=== PATIENT | male | born 1935 | race Caucasian/White ===

== ENCOUNTER 2019-10-02 11:17 | Emergency (ER) | payer MEDICARE ==
[2019-10-02 11:25] VITALS: RESP 18; TEMP 98
--- NOTE | 2019-10-02 12:38 | ED ---
Recheck HPI - General Chief Complaint: Recheck/Abnormal Lab/Rx Stated Complaint: High blood pressure Time Seen by Provider: 10/02/19 11:35 Source: patient, family Mode of arrival: wheelchair Limitations: physical limitation - History of Present Illness Initial Comments: Patient is an 84-year-old male, with history of hypertension, heart disease, hyperlipidemia, presenting to the emergency Department with complaints of elevated blood pressure readings this morning. Patient states that for the last 2 mornings when he sits up from bed he has some dizzy episodes. Patient states this feeling only lasts for a few minutes and then he can go along with his day. Patient states when it happened again this morning he took his blood pressure shortly after and it was 200/100. Patient states he then took it on his wrist and had approximately the same reading. Patient states with him feeling this way in the mornings and then the elevated blood pressure he decided to come in to the ER. He states he is feeling fine right now. He denies any lighthead edness, dizziness, headache, blurry vision, chest pain, shortness of breath. He denies any recent fever or chills. He denies any dysuria. Does been having regular bowel movements. He denies any other complaints at this time. Upon arrival to the ER, his vital signs are stable, including blood pressure 161/82. - Related Data Home Medications Medication Instructions Recorded Confirmed Aspirin [Adult Low Dose Aspirin EC] 81 mg PO HS 06/01/15 10/02/19 Diazepam [Valium] 5 mg PO BID PRN 06/01/15 10/02/19 Hydrochlorothiazide [Hydrodiuril] 25 mg PO DAILY 06/01/15 10/02/19 Metoprolol Tartrate [Lopressor] 50 mg PO BID 06/01/15 10/02/19 Allopurinol [Zyloprim] 100 mg PO DAILY 10/02/19 10/02/19 Aspirin EC [Ecotrin] 325 mg PO ONCE PRN 10/02/19 10/02/19 Pravastatin Sodium [Pravachol] 80 mg PO HS 10/02/19 10/02/19 Allergies Allergy/AdvReac Type Severity Reaction Status Date / Time Iodinated Contrast Media Allergy Anaphylaxis Verified 10/02/19 13:42 Review of Systems ROS Statement: Those systems with pertinent positive or pertinent negative responses have been documented in the HPI. ROS Other: All systems not noted in ROS Statement are negative. Past Medical History Past Medical History: Coronary Artery Disease (CAD), Hyperlipidemia, Hypertension History of Any Multi-Drug Resistant Organisms: None Reported Past Surgical History: Coronary Bypass/CABG Past Psychological History: Anxiety Smoking Status: Former smoker Past Alcohol Use History: Occasional Past Drug Use History: None Reported General Exam - General Exam Comments Initial Comments: GENERAL: Well-appearing, well-nourished and in no acute distress. HEAD: Atraumatic, normocephalic. EYES: Pupils equal round and reactive to light, extraocular movements intact, sclera anicteric, conjunctiva are normal. ENT: TMs normal, nares patent, oropharynx clear without exudates. Moist mucous membranes. NECK: Normal range of motion, supple without lymphadenopathy or JVD. LUNGS: Breath sounds clear to auscultation bilaterally and equal. No wheezes rales or rhonchi. HEART: Regular rate and rhythm without murmurs, rubs or gallops. ABDOMEN: Soft, nontender, normoactive bowel sounds. No guarding, no rebound. No masses appreciated. : Deferred EXTREMITIES: Normal range of motion, no pitting or edema. No clubbing or cyanosis. NEUROLOGICAL: Cranial nerves II through XII grossly intact. Normal speech, normal gait. PSYCH: Normal mood, normal affect. SKIN: Warm, Dry, normal turgor, no rashes or lesions noted. Limitations: physical limitation Course Vital Signs 10/02/19 10/02/19 10/02/19 11:21 11:25 12:25 Temperature 98 F Pulse Rate 63 59 L Respiratory 18 18 18 Rate Blood Pressure 161/82 154/75 O2 Sat by Pulse 99 99 Oximetry 10/02/19 10/02/19 10/02/19 13:00 14:00 14:19 Temperature Pulse Rate 60 61 61 Respiratory 18 18 18 Rate Blood Pressure 154/66 154/66 O2 Sat by Pulse 99 99 99 Oximetry Medical Decision Making - Medical Decision Making Patient is an 84-year-old male here for elevated blood pressure this morning as well as feeling lightheaded over the past 2 mornings. His vitals are stable upon arrival, blood pressure was 161/82. His exam is unremarkable. Lab work shows no acute findings, urine shows no evidence of infection. EKG shows first- degree block, no other abnormal findings. His blood pressure in the ER has been stable in the 150s/ 70s. I discussed with patient that his workup today was normal. Patient has remained asymptomatic in the ER. I recommended following up with his PCP. He is stable for discharge. Patient is agreeable with this plan of care. Return parameters were discussed with the patient he verbalizes understanding. Case discussed with Dr. Flores. - Lab Data Result diagrams: 10/02/19 12:26 10/02/19 12: Lab Results 10/02/19 10/02/19 10/02/19 Range/Units 12:26 12:26 12:26 WBC 7.2 (3.8-10.6) k/uL RBC 4.15 L (4.30-5.90) m/uL Hgb 13.7 (13.0-17.5) gm/dL Hct 41.3 (39.0-53.0) % MCV 99.7 (80.0-100.0) fL MCH 33.1 (25.0-35.0) pg MCHC 33.2 (31.0-37.0) g/dL RDW 13.1 (11.5-15.5) % Plt Count 119 L (150-450) k/uL Neutrophils % 71 % Lymphocytes % 13 % Monocytes % 9 % Eosinophils % 4 % Basophils % 0 % Neutrophils # 5.1 (1.3-7.7) k/uL Lymphocytes # 1.0 (1.0-4.8) k/uL Monocytes # 0.6 (0-1.0) k/uL Eosinophils # 0.3 (0-0.7) k/uL Basophils # 0.0 (0-0.2) k/uL Manual Slide Review Performed RBC Morphology Normal PT 9.9 (9.0-12.0) sec INR 0.9 (<1.2) APTT 34.9 H (22.0-30.0) sec Sodium 139 (137-145) mmol/L Potassium 4.5 (3.5-5.1) mmol/L Chloride 108 H (98-107) mmol/L Carbon Dioxide 23 (22-30) mmol/L Anion Gap 8 mmol/L BUN 23 H (9-20) mg/dL Creatinine 1.15 (0.66-1.25) mg/dL Est GFR (CKD-EPI)AfAm 67 (>60 ml/min/1.73 sqM) Est GFR (CKD-EPI)NonAf 58 (>60 ml/min/1.73 sqM) Glucose 105 H (74-99) mg/dL Calcium 9.9 (8.4-10.2) mg/dL Magnesium 1.6 (1.6-2.3) mg/dL Total Bilirubin 0.9 (0.2-1.3) mg/dL AST 30 (17-59) U/L ALT 21 (4-49) U/L Alkaline Phosphatase 74 (38-126) U/L Total Protein 6.7 (6.3-8.2) g/dL Albumin 4.2 (3.5-5.0) g/dL TSH 3.290 (0.465-4.680) mIU/L Urine Color Urine Appearance (Clear) Urine pH (5.0-8.0) Ur Specific [place] (1.001-1.035) Urine Protein (Negative) Urine Glucose (UA) (Negative) Urine Ketones (Negative) Urine Blood (Negative) Urine Nitrite (Negative) Urine Bilirubin (Negative) Urine Urobilinogen (<2.0) mg/dL Ur Leukocyte Esterase (Negative) Urine RBC (0-5) /hpf Urine WBC (0-5) /hpf Urine Mucus (None) /hpf 10/02/19 Range/Units 12:39 WBC (3.8-10.6) k/uL RBC (4.30-5.90) m/uL Hgb (13.0-17.5) gm/dL Hct (39.0-53.0) % MCV (80.0-100.0) fL MCH (25.0-35.0) pg MCHC (31.0-37.0) g/dL RDW (11.5-15.5) % Plt Count (150-450) k/uL Neutrophils % % Lymphocytes % % Monocytes % % Eosinophils % % Basophils % % Neutrophils # (1.3-7.7) k/uL Lymphocytes # (1.0-4.8) k/uL Monocytes # (0-1.0) k/uL Eosinophils # (0-0.7) k/uL Basophils # (0-0.2) k/uL Manual Slide Review RBC Morphology PT (9.0-12.0) sec INR (<1.2) APTT (22.0-30.0) sec Sodium (137-145) mmol/L Potassium (3.5-5.1) mmol/L Chloride (98-107) mmol/L Carbon Dioxide (22-30) mmol/L Anion Gap mmol/L BUN (9-20) mg/dL Creatinine (0.66-1.25) mg/dL Est GFR (CKD-EPI)AfAm (>60 ml/min/1.73 sqM) Est GFR (CKD-EPI)NonAf (>60 ml/min/1.73 sqM) Glucose (74-99) mg/dL Calcium (8.4-10.2) mg/dL Magnesium (1.6-2.3) mg/dL Total Bilirubin (0.2-1.3) mg/dL AST (17-59) U/L ALT (4-49) U/L Alkaline Phosphatase (38-126) U/L Total Protein (6.3-8.2) g/dL Albumin (3.5-5.0) g/dL TSH (0.465-4.680) mIU/L Urine Color Light Yellow Urine Appearance Clear (Clear) Urine pH 5.5 (5.0-8.0) Ur Specific [place] 1.013 (1.001-1.035) Urine Protein 1+ H (Negative) Urine Glucose (UA) Negative (Negative) Urine Ketones Negative (Negative) Urine Blood Negative (Negative) Urine Nitrite Negative (Negative) Urine Bilirubin Negative (Negative) Urine Urobilinogen <2.0 (<2.0) mg/dL Ur Leukocyte Esterase Negative (Negative) Urine RBC 1 (0-5) /hpf Urine WBC 1 (0-5) /hpf Urine Mucus Rare H (None) /hpf - EKG Data EKG Comments: Sinus bradycardia with first-degree AV block, R DVT, no signs of acute ischemia. Ventricular rate 59, LA interval 260, QTC 452. No previous EKGs to compare. Disposition Clinical Impression: Elevated blood pressure reading, Light-headed feeling Disposition: HOME SELF-CARE Condition: Stable Instructions (If sedation given, give patient instructions): Normal Exam (ED) Additional Instructions: Please return to the Emergency Department if symptoms worsen or any other concerns. Follow-up with PCP. Is patient prescribed a controlled substance at d/c from ED?: No Referrals: Adam Chirinos MD [STAFF PHYSICIAN] - 1-2 days
[2019-10-02 12:41] LABS: Basophils % (A) 0 %; Eosinophils # (A) 0.3 k/uL (0-0.7); Eosinophils % (A) 4 %; HCT 41.3 % (39.0-53.0); HGB 13.7 gm/dL (13.0-17.5); Lymphocytes % (A) 13 %; MCH 33.1 pg (25.0-35.0); MCHC 33.2 g/dL (31.0-37.0); MCV 99.7 fL (80.0-100.0); Mean Platelet Volume 9.3; Monocytes # (A) 0.6 k/uL (0-1.0); Monocytes % (A) 9 %; Neutrophils # (A) 5.1 k/uL (1.3-7.7); Neutrophils % (A) 71 %; Platelet Count 119 k/uL (150-450); RBC 4.15 m/uL (4.30-5.90); RDW 13.1 % (11.5-15.5); WBC 7.2 k/uL (3.8-10.6)
[2019-10-02 12:49] LABS: Albumin 4.2 g/dL (3.5-5.0); Calcium 9.9 mg/dL (8.4-10.2); Magnesium 1.6 mg/dL (1.6-2.3); Potassium 4.5 mmol/L (3.5-5.1); Total Bilirubin 0.9 mg/dL (0.2-1.3); Total Protein 6.7 g/dL (6.3-8.2)
[2019-10-02 12:53] LABS: Appearance,Urine Clear (Clear); Bilirubin,Urine Negative (Negative); Blood,Urine Negative (Negative); Color,Urine Light Yellow; Glucose,Urine (UA) Negative (Negative); Ketones,Urine Negative (Negative); Leukocyte Esterase,Urine Negative (Negative); Mucus,Urine Rare /hpf; Nitrite,Urine Negative (Negative); PH, Urine 5.5 (5.0-8.0); Protein,Urine 1+ (Negative); RBC,Urine 1 /hpf (0-5); Specific Gravity,Urine 1.013 (1.001-1.035); Urobilinogen,Urine <2.0 mg/dL (<2.0); WBC,Urine 1 /hpf (0-5)
[2019-10-02 12:55] LABS: INR 0.9 (<1.2); Partial Thromboplastin Time 34.9 sec (22.0-30.0); Prothrombin Time 9.9 sec (9.0-12.0)
[2019-10-02 14:19] VITALS: BP 154/66; PULSE 61
== END 2019-10-02 14:22 | disposition home or self-care (01) ==
LOC: EC 11:17
DX: I10 Essential (primary) hypertension (principal); R42 Dizziness and giddiness; I25.10 Atherosclerotic heart disease of native coronary artery without angina pectoris; E78.5 Hyperlipidemia, unspecified; Z95.1 Presence of aortocoronary bypass graft; Z87.891 Personal history of nicotine dependence; Z79.82 Long term (current) use of aspirin; Z79.899 Other long term (current) drug therapy; Z91.041 Radiographic dye allergy status
CPT/HCPCS: 36415; 80053; 81001; 83735; 84443; 85025; 85610; 85730; 93005; 99283

== ENCOUNTER 2022-07-18 11:50 | Inpatient (IN) | payer OTHER, MEDICARE ==
--- NOTE | 2022-07-18 12:35 | ED ---
General Adult HPI - General Chief complaint: Weakness Stated complaint: weak Time Seen by Provider: 07/18/22 12:16 Source: patient, RN notes reviewed Mode of arrival: ambulatory Limitations: no limitations - History of Present Illness Initial comments: Patient is a pleasant 87-year-old male presenting to the emergency department with concerns with general weakness. Patient states symptoms have been present for the past one week. Patient feels weak all over. Patient has difficulty getting up getting out of bed. Patient is able to make it to the restroom using a walker however that is about his limitations. No confusion. No isolated area of weakness. No fever. Patient was given a pill that he took several times from a nurse friend however is unclear what it was. Patient does question if this could be related to his symptoms. Patient did have a fall several days ago and had x-rays done of his ankles that were reported as normal - Related Data Home Medications Medication Instructions Recorded Confirmed Aspirin [Adult Low Dose Aspirin EC] 81 mg PO HS 06/01/15 10/02/19 Metoprolol Tartrate [Lopressor] 50 mg PO BID 06/01/15 10/02/19 diazePAM [Valium] 5 mg PO BID PRN 06/01/15 10/02/19 hydroCHLOROthiazide [Hydrodiuril] 25 mg PO DAILY 06/01/15 10/02/19 Aspirin EC [Ecotrin] 325 mg PO ONCE PRN 10/02/19 10/02/19 Pravastatin Sodium [Pravachol] 80 mg PO HS 10/02/19 10/02/19 allopurinoL [Zyloprim] 100 mg PO DAILY 10/02/19 10/02/19 Allergies Allergy/AdvReac Type Severity Reaction Status Date / Time Iodinated Contrast Media Allergy Anaphylaxis Verified 07/18/22 12:02 Review of Systems ROS Statement: Those systems with pertinent positive or pertinent negative responses have been documented in the HPI. ROS Other: All systems not noted in ROS Statement are negative. Constitutional: Denies: fever Eyes: Denies: eye pain ENT: Denies: ear pain Respiratory: Denies: cough Cardiovascular: Denies: chest pain Endocrine: Denies: fatigue Gastrointestinal: Denies: abdominal pain Genitourinary: Denies: dysuria Musculoskeletal: Denies: arthralgia Skin: Denies: lesions Neurological: Reports: as per HPI, weakness. Denies: headache, confusion Past Medical History Past Medical History: Coronary Artery Disease (CAD), Hyperlipidemia, Hypertension History of Any Multi-Drug Resistant Organisms: None Reported Past Surgical History: Coronary Bypass/CABG Past Psychological History: Anxiety Smoking Status: Never smoker Past Alcohol Use History: Occasional Past Drug Use History: None Reported General Exam Limitations: no limitations General appearance: alert, in no apparent distress Head exam: Present: normocephalic Eye exam: Present: normal appearance, PERRL, EOMI ENT exam: Present: normal oropharynx Neck exam: Present: normal inspection. Absent: tenderness Respiratory exam: Present: normal lung sounds bilaterally Cardiovascular Exam: Present: regular rate, normal rhythm GI/Abdominal exam: Present: soft. Absent: tenderness Extremities exam: Present: normal inspection, full ROM. Absent: tenderness Neurological exam: Present: alert, oriented X3, CN II-XII intact. Absent: motor sensory deficit Expanded Speech: Present: fluid speech Motor strength exam: RUE: 5, LUE: 5, RLE: 5, LLE: 5 Eye Response: (4) open spontaneously Motor Response: (6) obeys commands Verbal Response: (5) oriented Psychiatric exam: Present: normal affect, normal mood Skin exam: Present: normal color Course Vital Signs 07/18/22 07/18/22 12:00 13:01 Temperature 97.4 F L Pulse Rate 107 H 79 Respiratory 20 18 Rate Blood Pressure 129/78 118/81 O2 Sat by Pulse 100 98 Oximetry EKG Findings - EKG Results: EKG: interpreted by ERMD (Right bundle-branch block. inferior Q waves. Nonspecific ST-T. [place] indeterminate. Probable underlying A. fib) Medical Decision Making - Medical Decision Making Was pt. sent in by a medical professional or institution (, PA, RESOURCE SPECIALIST, urgent care, hospital, or fdc...) When possible be specific @ -No Did you speak to anyone other than the patient for history (EMS, parent, family, police, friend...)? What history was obtained from this source @ -No Did you review nursing and triage notes (agree or disagree)? Why? @ -I reviewed and agree with nursing and triage notes Were old charts reviewed (outside hosp., previous admission, EMS record, old EKG, old radiological studies, urgent care reports/EKG's, fdc records)? Report findings @ -No old charts were reviewed Differential Diagnosis (chest pain, altered mental status, abdominal pain women, abdominal pain men, vaginal bleeding, weakness, fever, dyspnea, syncope, headache, dizziness, GI bleed, back pain, seizure, CVA, palpatations, mental health)? @ -Differential Weakness: Hypoglycemia, shock, sepsis, hyponatremia, anemia, infection, CA, ETOH, adverse medicine reaction, overdose, stroke, this is not meant to be an all-inclusive list. EKG interpreted by me (3pts min.). @ -As above X-rays interpreted by me (1pt min.). @ -Chest x-ray shows no acute process CT interpreted by me (1pt min.). @ -Report reviewed U/S interpreted by me (1pt. min.). @ -None done What testing was considered but not performed or refused? (CT, X-rays, U/S, labs)? Why? @ -None What meds were considered but not given or refused? Why? @ -None Did you discuss the management of the patient with other professionals (professionals i.e. , PA, RESOURCE SPECIALIST, lab, RT, psych nurse, social work case manager, relay associate, teacher, chief digital officer, pillowcase maker)? Give summary @ -Case was discussed with Dr. Tovar, who will admit this. Patient va Was smoking cessation discussed for >3mins.? @ -No Was critical care preformed (if so, how long)? @ -No Were there social determinants of health that impacted care today? How? (Homelessness, low income, unemployed, alcoholism, drug addiction, transportation, low edu. Level, literacy, decrease access to med. care, custodial, rehab)? @ -No Was there de-escalation of care discussed even if they declined (Discuss DNR or withdrawal of care, Hospice)? DNR status @ -No What co-morbidities impacted this encounter? (DM, HTN, Smoking, COPD, CAD, Cancer, CVA, ARF, Chemo, Hep., AIDS, mental health diagnosis, sleep apnea, morbid obesity)? @ -None Was patient admitted / discharged? Hospital course, mention meds given and r oute, prescriptions, significant lab abnormalities, going to OR and other pertinent info. @ -Patient reevaluated. Patient updated on results and plan. Patient will be admitted for hydration. Patient will be reevaluated and may need placement Undiagnosed new problem with uncertain prognosis? @ -No Drug Therapy requiring intensive monitoring for toxicity (Heparin, Nitro, Insulin, Cardizem)? @ -No Were any procedures done? @ -No Diagnosis/symptom? @ -Dehydration with fall Acute, or Chronic, or Acute on Chronic? @ -Acute Uncomplicated (without systemic symptoms) or Complicated (systemic symptoms)? @ -default Side effects of treatment? @ -No Exacerbation, Progression, or Severe Exacerbation? @ -No Poses a threat to life or bodily function? How? (Chest pain, [place], CA, pneumonia, PE, COPD, DKA, ARF, appy, cholecystitis, CVA, Diverticulitis, Homicidal, Suicidal, threat to staff... and all critical care pts) @ -No - Lab Data Result diagrams: 07/18/22 13:02 07/18/22 13:02 Lab Results 07/18/22 07/18/22 07/18/22 Range/Units 13:02 13:02 13:02 WBC 16.7 H (3.8-10.6) k/uL RBC 3.74 L (4.30-5.90) m/uL Hgb 11.2 L (13.0-17.5) gm/dL Hct 36.4 L (39.0-53.0) % MCV 97.4 (80.0-100.0) fL MCH 30.0 (25.0-35.0) pg MCHC 30.8 L (31.0-37.0) g/dL RDW 13.6 (11.5-15.5) % Plt Count 625 H (150-450) k/uL MPV 7.5 Neutrophils % 87 % Lymphocytes % 4 % Monocytes % 5 % Eosinophils % 3 % Basophils % 0 % Neutrophils # 14.6 H (1.3-7.7) k/uL Lymphocytes # 0.7 L (1.0-4.8) k/uL Monocytes # 0.8 (0-1.0) k/uL Eosinophils # 0.4 (0-0.7) k/uL Basophils # 0.0 (0-0.2) k/uL PT 12.1 H (9.0-12.0) sec INR 1.2 H (<1.2) APTT 44.8 H (22.0-30.0) sec Sodium 137 (137-145) mmol/L Potassium 3.9 (3.5-5.1) mmol/L Chloride 100 (98-107) mmol/L Carbon Dioxide 20 L (22-30) mmol/L Anion Gap 17 mmol/L BUN 41 H (9-20) mg/dL Creatinine 1.56 H (0.66-1.25) mg/dL Est GFR (CKD-EPI)AfAm 45 (>60 ml/min/1.73 sqM) Est GFR (CKD-EPI)NonAf 39 (>60 ml/min/1.73 sqM) Glucose 107 H (74-99) mg/dL Plasma Lactic Acid Mikel (0.7-2.0) mmol/L Calcium 8.7 (8.4-10.2) mg/dL Phosphorus 4.3 (2.5-4.5) mg/dL Magnesium 1.8 (1.6-2.3) mg/dL Total Bilirubin 0.8 (0.2-1.3) mg/dL AST 30 (17-59) U/L ALT 28 (4-49) U/L Alkaline Phosphatase 168 H (38-126) U/L Creatine Kinase <20 L (55-170) U/L Troponin I (0.000-0.034) ng/mL Total Protein 5.8 L (6.3-8.2) g/dL Albumin 2.8 L (3.5-5.0) g/dL TSH 2.090 (0.465-4.680) mIU/L Free T4 1.97 (0.78-2.19) ng/dL Free T3 pg/mL 2.8 (2.8-5.3) pg/ml Urine Color Urine Appearance (Clear) Urine pH (5.0-8.0) Ur Specific [place] (1.001-1.035) Urine Protein (Negative) Urine Glucose (UA) (Negative) Urine Ketones (Negative) Urine Blood (Negative) Urine Nitrite (Negative) Urine Bilirubin (Negative) Urine Urobilinogen (<2.0) mg/dL Ur Leukocyte Esterase (Negative) Urine RBC (0-5) /hpf Urine WBC (0-5) /hpf Hyaline Casts (0-2) /lpf Granular Casts (0) /lpf Urine Mucus (None) /hpf 07/18/22 07/18/22 07/18/22 Range/Units 13:02 13:02 13:05 WBC (3.8-10.6) k/uL RBC (4.30-5.90) m/uL Hgb (13.0-17.5) gm/dL Hct (39.0-53.0) % MCV (80.0-100.0) fL MCH (25.0-35.0) pg MCHC (31.0-37.0) g/dL RDW (11.5-15.5) % Plt Count (150-450) k/uL MPV Neutrophils % % Lymphocytes % % Monocytes % % Eosinophils % % Basophils % % Neutrophils # (1.3-7.7) k/uL Lymphocytes # (1.0-4.8) k/uL Monocytes # (0-1.0) k/uL Eosinophils # (0-0.7) k/uL Basophils # (0-0.2) k/uL PT (9.0-12.0) sec INR (<1.2) APTT (22.0-30.0) sec Sodium (137-145) mmol/L Potassium (3.5-5.1) mmol/L Chloride (98-107) mmol/L Carbon Dioxide (22-30) mmol/L Anion Gap mmol/L BUN (9-20) mg/dL Creatinine (0.66-1.25) mg/dL Est GFR (CKD-EPI)AfAm (>60 ml/min/1.73 sqM) Est GFR (CKD-EPI)NonAf (>60 ml/min/1.73 sqM) Glucose (74-99) mg/dL Plasma Lactic Acid [place] 1.7 (0.7-2.0) mmol/L Calcium (8.4-10.2) mg/dL Phosphorus (2.5-4.5) mg/dL Magnesium (1.6-2.3) mg/dL Total Bilirubin (0.2-1.3) mg/dL AST (17-59) U/L ALT (4-49) U/L Alkaline Phosphatase (38-126) U/L Creatine Kinase (55-170) U/L Troponin I 0.035 H* (0.000-0.034) ng/mL Total Protein (6.3-8.2) g/dL Albumin (3.5-5.0) g/dL TSH (0.465-4.680) mIU/L Free T4 (0.78-2.19) ng/dL Free T3 pg/mL (2.8-5.3) pg/ml Urine Color Yellow Urine Appearance Cloudy (Clear) Urine pH 5.0 (5.0-8.0) Ur Specific [place] 1.022 (1.001-1.035) Urine Protein 1+ H (Negative) Urine Glucose (UA) Negative (Negative) Urine Ketones Trace H (Negative) Urine Blood Negative (Negative) Urine Nitrite Negative (Negative) Urine Bilirubin 1+ H (Negative) Urine Urobilinogen 2.0 (<2.0) mg/dL Ur Leukocyte Esterase Negative (Negative) Urine RBC 1 (0-5) /hpf Urine WBC 5 (0-5) /hpf Hyaline Casts 27 H (0-2) /lpf Granular Casts 5 (0) /lpf Urine Mucus Rare H (None) /hpf Disposition Clinical Impression: Dehydration, Fall Disposition: ADMITTED IP TO THIS HOSP Is patient prescribed a controlled substance at d/c from ED?: No Referrals: [facility],Clinic [Primary Care Provider] - 1-2 days Time of Disposition: 14:12
[2022-07-18 13:25] LABS: Basophils % (A) 0 %; Eosinophils # (A) 0.4 k/uL (0-0.7); Eosinophils % (A) 3 %; HCT 36.4 % (39.0-53.0); HGB 11.2 gm/dL (13.0-17.5); Lymphocytes # (A) 0.7 k/uL (1.0-4.8); Lymphocytes % (A) 4 %; MCHC 30.8 g/dL (31.0-37.0); MCV 97.4 fL (80.0-100.0); Mean Platelet Volume 7.5; Monocytes # (A) 0.8 k/uL (0-1.0); Monocytes % (A) 5 %; Neutrophils # (A) 14.6 k/uL (1.3-7.7); Neutrophils % (A) 87 %; Platelet Count 625 k/uL (150-450); RBC 3.74 m/uL (4.30-5.90); RDW 13.6 % (11.5-15.5); WBC 16.7 k/uL (3.8-10.6)
[2022-07-18 13:30] LABS: INR 1.2 (<1.2); Partial Thromboplastin Time 44.8 sec (22.0-30.0); Prothrombin Time 12.1 sec (9.0-12.0)
[2022-07-18 13:35] LABS: ALT 28 U/L (4-49); AST 30 U/L (17-59); African American GFR (CKD) 45 (>60 ml/min/1.73 sqM); Albumin 2.8 g/dL (3.5-5.0); Alkaline Phosphatase 168 U/L (38-126); Anion Gap 17 mmol/L; Blood Urea Nitrogen 41 mg/dL (9-20); Calcium 8.7 mg/dL (8.4-10.2); Carbon Dioxide 20 mmol/L (22-30); Chloride 100 mmol/L (98-107); Creatine Kinase <20 U/L (55-170); Glucose 107 mg/dL (74-99); Magnesium 1.8 mg/dL (1.6-2.3); Non-African American GFR(CKD) 39 (>60 ml/min/1.73 sqM); Phosphorus 4.3 mg/dL (2.5-4.5); Potassium 3.9 mmol/L (3.5-5.1); Sodium 137 mmol/L (137-145); Total Bilirubin 0.8 mg/dL (0.2-1.3); Total Protein 5.8 g/dL (6.3-8.2)
--- NOTE | 2022-07-18 13:40 | CT ---
EXAMINATION TYPE: CT brain wo con CT DLP: 1188.4 mGycm, Automated exposure control for dose reduction was used. DATE OF EXAM: 07/18/2022 1:20 PM COMPARISON: None. CLINICAL INDICATION:Male, 87 years old with history of weakness, Weakness. TECHNIQUE: Brain: Axial CT images of the brain were obtained with coronal and sagittal reformats created and rev iewed. Contrast used: None. Oral contrast used: None. FINDINGS: Brain: Extra-axial spaces: No abnormal extra-axial fluid collections. Ventricular system: Dilatation in proportion to cerebral atrophy. Cerebral parenchyma: Cerebral atrophy. No acute intraparenchymal hemorrhage or mass effect. The mccray -white junction is well differentiated. Scattered hypoattenuating areas are seen within the white mat ter. Cerebellum: Unremarkable. Mass effect: No evidence of midline shift. Intracranial vasculature: Atherosclerotic calcifications of the intracranial vessels. Soft tissues: Normal. Calvarium/osseous structures: No depressed skull fracture. Remote appearing left nasal bone fracture suggested. Paranasal sinuses and mastoid air cells: Mild scattered paranasal sinus disease. Visualized orbits: Orbital contents are intact. IMPRESSION: No acute intracranial process.
--- NOTE | 2022-07-18 13:41 | XR ---
EXAMINATION TYPE: XR chest 2V DATE OF EXAM: 07/18/2022 1:22 PM COMPARISON: None TECHNIQUE: XR chest 2V Frontal and lateral views of the chest. CLINICAL INDICATION:Male, 87 years old with history of Weakness; FINDINGS: Lungs/Pleura: There is flattening of the diaphragm with increased lucency of the lungs. No evidence o f pneumothorax, pleural effusion or focal consolidation. Pulmonary vascularity: Unremarkable. Heart/mediastinum: Cardiomediastinal silhouette is unremarkable. Musculoskeletal: No acute osseous pathology. Midline sternotomy wires and surgical clips project over the mediastinum. IMPRESSION: 1. No acute cardiopulmonary disease process. 2. COPD changes.
[2022-07-18 13:51] LABS: Appearance,Urine Cloudy (Clear); Bilirubin,Urine 1+ (Negative); Blood,Urine Negative (Negative); Color,Urine Yellow; Glucose,Urine (UA) Negative (Negative); Granular Casts,Urine 5 /lpf (0); Hyaline Casts,Urine 27 /lpf (0-2); Ketones,Urine Trace (Negative); Leukocyte Esterase,Urine Negative (Negative); Mucus,Urine Rare /hpf; Nitrite,Urine Negative (Negative); Protein,Urine 1+ (Negative); RBC,Urine 1 /hpf (0-5); Specific Gravity,Urine 1.022 (1.001-1.035); WBC,Urine 5 /hpf (0-5)
[2022-07-18 13:52] LABS: T4, Free (Free Thyroxine) 1.97 ng/dL (0.78-2.19)
[2022-07-18] MEDS ORDERED: NALOXONE 0.4 MG/ML 1 ML VIAL IV PRN (14:12)
[2022-07-18] MEDS: SODIUM CHLORIDE 0.9% 1,000 ML IV SCH (14:27)
[2022-07-18] MEDS: ASPIRIN 325 MG TAB PO SCH (14:27)
[2022-07-18] MEDS ORDERED: diazePAM 5 MG TAB PO PRN (16:47)
--- NOTE | 2022-07-18 18:18 | P.HPIM ---
History of Present Illness H&P Date: 07/18/22 Patient is a 87-year-old male with PMH of gout, hypertension, CAD, dyslipidemia, chronic lower back pain presents to the ED for generalized weakness. 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 [facility] with pain medication. He reports his nursing friend give an unknown medication to take 4 pills every 6 hours. Over the next 2 days he reported profuse diarrhea and bladder and bowel incontinence. His incontinence improved he stopped taking this medication. However, he has been feeling progressively weak since then which prompted him to come to the ED. He denies any headache, lower extremity edema, nausea or vomiti ng, fever or chills, cough, chest pain, shortness of palpitations. No changes in appetite or weight. He denies any dizziness. In the ED, he was noted to be tachycardic with heart rate of 107. Vital signs were otherwise stable. CBC showed leukocytosis of 16.7 and hemoglobin of 11.2 with platelet count of 625. INR was 1.2. CMP showed a bicarb of 20, BUN of 41, creatinine 1.56, glucose of 107, alkaline phosphatase 168, albumin of 2.8. Troponin was 0.035. TSH within normal limits. Creatinine kinase within normal limits. Urinalysis negative for nitrite or leukocyte esterase. Influenza, RSV, COVID-19 negative. EKG showed atrial fibrillation with ventricular rate of 98. Brain CT negative for acute finding. Chest x-ray showed findings of COPD. Patient is admitted for generalized weakness onset atrial fibrillation. Pertinent positives and negatives as discussed in HPI, a complete review of systems was performed and all other systems are negative. General: non toxic, no distress, appears at stated age Derm: warm, dry Head: atraumatic, normocephalic, symmetric Eyes: EOMI, no lid lag, anicteric sclera Mouth: no lip lesion, mucus membranes moist Cardiovascular: Irregularly regular, no murmur Lungs: CTA bilateral, no rhonchi, no rales , no accessory muscle use Abdominal: soft, nontender to palpation, no guarding, no appreciable organomegaly Ext: no gross muscle atrophy, no edema, no contractures Neuro: no focal neuro deficits Psych: Alert, oriented, appropriate affect New onset atrial fibrillation Troponin elevation Generalized weakness Acute kidney injury Leukocytosis Normocytic anemia with thrombocytosis Supratherapeutic INR Chronic conditions: Gout, hypertension, CAD, dyslipidemia, chronic lower back pain Based on my assessment of this patient, this patient meets a high complexity level of care. Patient has an acute diagnosis of atrial fibrillation with elevated troponins that poses a threat to life or bodily function. He is currently rate controlled with HR in the 90s. He will be continued on Metoprolol 50 mg PO BID. Defer anticoagulation to cardiology. Echocardiogram is ordered. Telemetry monitoring will be ordered. UDS ordered for unknown medication that patient took. Encoruaged to find out from his friend. PT and OT will be consulted to work with this patient. Start normal saline at 75 cc/hr for hydration with hopeful improvement in FREDRICK. Unknown reason for leukocytosis, no signs of active infection, will continue to monitor. Lovenox for DVT prophylaxis. FULL CODE. Daughter is the decision maker. I have reviewed the following party plan sales consultant notes: None. I have reviewed the results of the following tests: CBC showed leukocytosis of 16.7 and hemoglobin of 11.2 with platelet count of 625. INR was 1.2. CMP showed a bicarb of 20, BUN of 41, creatinine 1.56, glucose of 107, alkaline phosphatase 168, albumin of 2.8. Troponin was 0.035. TSH within normal limits. Creatinine kinase within normal limits. Urinalysis negative for nitrite or leukocyte esterase. Influenza, RSV, COVID-19 negative. I have ordered the following tests: I have discussed the care of this patient with the following independent historian: I have independently interpreted the following test below: EKG showed atrial fibrillation with ventricular rate of 98. Brain CT negative for acute finding. Chest x-ray showed findings of COPD. I have discussed the management of this patient with the following physician: Case discussed with the ED provider. Past Medical History Past Medical History: Coronary Artery Disease (CAD), Hyperlipidemia, Hypertension History of Any Multi-Drug Resistant Organisms: None Reported Past Surgical History: Coronary Bypass/CABG Past Psychological History: Anxiety Smoking Status: Never smoker Past Alcohol Use History: Occasional Past Drug Use History: None Reported Medications and Allergies Home Medications Medication Instructions Recorded Confirmed Type Metoprolol Tartrate [Lopressor] 50 mg PO BID 06/01/15 07/18/22 History diazePAM [Valium] 5 mg PO BID PRN 06/01/15 07/18/22 History hydroCHLOROthiazide [Hydrodiuril] 25 mg PO DAILY 06/01/15 07/18/22 History allopurinoL [Zyloprim] 100 mg PO DAILY 10/02/19 07/18/22 History Pravastatin Sodium [Pravachol] 40 mg PO HS 07/18/22 07/18/22 History Allergies Allergy/AdvReac Type Severity Reaction Status Date / Time Iodinated Contrast Media Allergy Anaphylaxis Verified 07/18/22 14:44 Physical Exam Vitals: Vital Signs Temp Pulse Resp BP Pulse Ox 07/18/22 14:27 80 16 152/62 98 07/18/22 13:01 79 18 118/81 98 07/18/22 12:00 97.4 F L 107 H 20 129/78 100 Intake and Output 07/18/22 07/18/22 07/18/22 06:59 14:59 22:59 Other: Weight 70.76 kg Results CBC & Chem 7: 07/18/22 13:02 07/18/22 13:02 Labs: Abnormal Lab Results - Last 24 Hours (Table) 07/18/22 07/18/22 07/18/22 Range/Units 13:02 13:02 13:02 WBC 16.7 H (3.8-10.6) k/uL RBC 3.74 L (4.30-5.90) m/uL Hgb 11.2 L (13.0-17.5) gm/dL Hct 36.4 L (39.0-53.0) % MCHC 30.8 L (31.0-37.0) g/dL Plt Count 625 H (150-450) k/uL Neutrophils # 14.6 H (1.3-7.7) k/uL Lymphocytes # 0.7 L (1.0-4.8) k/uL PT 12.1 H (9.0-12.0) sec INR 1.2 H (<1.2) APTT 44.8 H (22.0-30.0) sec Carbon Dioxide 20 L (22-30) mmol/L BUN 41 H (9-20) mg/dL Creatinine 1.56 H (0.66-1.25) mg/dL Glucose 107 H (74-99) mg/dL Alkaline Phosphatase 168 H (38-126) U/L Creatine Kinase <20 L (55-170) U/L Troponin I (0.000-0.034) ng/mL Total Protein 5.8 L (6.3-8.2) g/dL Albumin 2.8 L (3.5-5.0) g/dL Urine Protein (Negative) Urine Ketones (Negative) Urine Bilirubin (Negative) Hyaline Casts (0-2) /lpf Urine Mucus (None) /hpf 07/18/22 07/18/22 Range/Units 13:02 13:05 WBC (3.8-10.6) k/uL RBC (4.30-5.90) m/uL Hgb (13.0-17.5) gm/dL Hct (39.0-53.0) % MCHC (31.0-37.0) g/dL Plt Count (150-450) k/uL Neutrophils # (1.3-7.7) k/uL Lymphocytes # (1.0-4.8) k/uL PT (9.0-12.0) sec INR (<1.2) APTT (22.0-30.0) sec Carbon Dioxide (22-30) mmol/L BUN (9-20) mg/dL Creatinine (0.66-1.25) mg/dL Glucose (74-99) mg/dL Alkaline Phosphatase (38-126) U/L Creatine Kinase (55-170) U/L Troponin I 0.035 H* (0.000-0.034) ng/mL Total Protein (6.3-8.2) g/dL Albumin (3.5-5.0) g/dL Urine Protein 1+ H (Negative) Urine Ketones Trace H (Negative) Urine Bilirubin 1+ H (Negative) Hyaline Casts 27 H (0-2) /lpf Urine Mucus Rare H (None) /hpf
[2022-07-18] MEDS: METOPROLOL TARTRATE 50 MG TAB PO SCH (20:45)
[2022-07-18] MEDS: PRAVASTATIN SODIUM 40 MG TAB PO SCH (20:45)
[2022-07-18] MEDS: FAMOTIDINE 20 MG TAB PO SCH (20:45)
[2022-07-18] MEDS: ACETAMINOPHEN TAB 325 MG TAB PO PRN (20:49)
[2022-07-19] MEDS: SODIUM CHLORIDE 0.9% 1,000 ML IV SCH ×2 (03:28→16:41)
[2022-07-19] MEDS: hydroCHLOROthiazide 25 MG TAB PO SCH (08:11)
[2022-07-19] MEDS: METOPROLOL TARTRATE 50 MG TAB PO SCH ×2 (08:12→20:56)
[2022-07-19] MEDS: allopurinoL 100 MG TAB PO SCH (08:12)
[2022-07-19] MEDS: ASPIRIN 325 MG TAB PO SCH (08:12)
[2022-07-19] MEDS: ACETAMINOPHEN TAB 325 MG TAB PO PRN ×2 (08:17→18:40)
[2022-07-19 08:59] LABS: Albumin 2.3 g/dL (3.5-5.0); Calcium 7.7 mg/dL (8.4-10.2); Potassium 3.9 mmol/L (3.5-5.1); Total Bilirubin 0.7 mg/dL (0.2-1.3)
[2022-07-19 09:17] LABS: Basophils % (A) 0 %; Eosinophils # (A) 1.1 k/uL (0-0.7); Eosinophils % (A) 8 %; HCT 28.3 % (39.0-53.0); Lymphocytes # (A) 0.6 k/uL (1.0-4.8); Lymphocytes % (A) 4 %; MCH 31.3 pg (25.0-35.0); Mean Platelet Volume 8.3; Monocytes # (A) 0.7 k/uL (0-1.0); Monocytes % (A) 5 %; Neutrophils # (A) 12.1 k/uL (1.3-7.7); Neutrophils % (A) 82 %; Platelet Count 601 k/uL (150-450); RBC 2.89 m/uL (4.30-5.90); WBC 14.8 k/uL (3.8-10.6)
--- NOTE | 2022-07-19 11:59 | P.PN ---
Subjective Progress Note Date: 07/19/22 Patient is a 87-year-old male with PMH of gout, hypertension, CAD, dyslipidemia, chronic lower back pain presents to the ED for generalized weakness. 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 [facility] with pain medication. He reports his nursing friend give an unknown medication to take 4 pills every 6 hours. Over the next 2 days he reported profuse diarrhea and bladder and bowel incontinence. His incontinence improved he stopped taking this medication. However, he has been feeling progressively weak since then which prompted him to come to the ED. He denies any headache, lower extremity edema, nausea or vomiting, fever or chills, cough, chest pain, shortness of palpitations. No changes in appetite or weight. He denies any dizziness. In the ED, he was noted to be tachycardic with heart rate of 107. Vital signs were otherwise stable. CBC showed leukocytosis of 16.7 and hemoglobin of 11.2 with platelet count of 625. INR was 1.2. CMP showed a bicarb of 20, BUN of 41, creatinine 1.56, glucose of 107, alkaline phosphatase 168, albumin of 2.8. Troponin was 0.035. TSH within normal limits. Creatinine kinase within normal limits. Urinalysis negative for nitrite or leukocyte esterase. Influenza, RSV, COVID-19 negative. EKG showed atrial fibrillation with ventricular rate of 98. Brain CT negative for acute finding. Chest x-ray showed findings of COPD. Patient is admitted for generalized weakness onset atrial fibrillation. Patient was seen and examined. No acute events overnight. Reports continued weakness. No more diarrhea today. Heart rate in the 90s. General: non toxic, no distress, appears at stated age Derm: warm, dry Head: atraumatic, normocephalic, symmetric Eyes: EOMI, no lid lag, anicteric sclera Cardiovascular: Irregularly regular, no murmur Lungs: CTA bilateral, no rhonchi, no rales , no accessory muscle use Ext: no gross muscle atrophy, no edema, no contractures Neuro: no focal neuro deficits Psych: Alert, oriented, appropriate affect New onset atrial fibrillation Troponin elevation Generalized weakness Acute kidney injury Leukocytosis Normocytic anemia with thrombocytosis Supratherapeutic INR Chronic conditions: Gout, hypertension, CAD, dyslipidemia, chronic lower back pain Based on my assessment of this patient, this patient meets a moderate complexity level of care. Patient has an acute diagnosis of atrial fibrillation with elevated troponins that poses a threat to life or bodily function. He is currently rate controlled with HR in the 90s. He will be continued on Metoprolol 50 mg PO BID. Defer anticoagulation to cardiology. Echocardiogram is pending. Telemetry monitoring will be ordered. Cardiology consulted for further management. Troponins trending down, ACS ruled out. Drop in Hg is likely dilution. There are no active signs of bleeding. UDS ordered for unknown medication that patient took. Encouraged to find out from his friend. PT and OT will be consulted to work with this patient. Continue normal saline at 75 cc/hr for hydration with hopeful improvement in FREDRICK. Unknown reason for leukocytosis, no signs of active infection, will continue to monitor. Lovenox for DVT prophylaxis. FULL CODE. Daughter is the decision maker. I have reviewed the following surgical product sales consultant notes: None. I have reviewed the results of the following tests: CBC showed leukocytosis of 14.8 and hemoglobin of 9 with platelet count of 601. CMP shows Na 136, bicarb of 21, BUN of 39, creatinine 1.27, Ca 7.7, alkaline phosphatase 155, albumin of 2.3. Troponin 0.036, 0.028. I have ordered the following tests: CBC and BMP ordered for tomorrow morning. I have discussed the care of this patient with the following independent historian: I have independently interpreted the following test below: None. I have discussed the management of this patient with the following physician: Case discussed with Neva BAUTISTA. Objective - Vital Signs Vital signs: Vital Signs Temp 97.9 F 07/19/22 08:00 Pulse 94 07/19/22 08:00 Resp 16 07/19/22 08:00 BP 118/67 07/19/22 08:00 Pulse Ox 95 07/19/22 08:00 FiO2 Intake & Output 07/18/22 07/19/22 07/19/22 18:59 06:59 18:59 Intake Total 300 Output Total 250 100 Balance -250 200 Weight 70.76 kg Intake: Oral 300 Output: Urine 250 100 Other: Voiding Method Toilet Toilet Urinal Urinal # Voids 2 - Labs CBC & Chem 7: 07/19/22 07:10 07/19/22 07:10 Labs: Abnormal Lab Results - Last 24 Hours (Table) 07/18/22 07/18/22 07/18/22 Range/Units 13:02 13:02 13:02 WBC 16.7 H (3.8-10.6) k/uL RBC 3.74 L (4.30-5.90) m/uL Hgb 11.2 L (13.0-17.5) gm/dL Hct 36.4 L (39.0-53.0) % MCHC 30.8 L (31.0-37.0) g/dL Plt Count 625 H (150-450) k/uL Neutrophils # 14.6 H (1.3-7.7) k/uL Lymphocytes # 0.7 L (1.0-4.8) k/uL Eosinophils # (0-0.7) k/uL PT 12.1 H (9.0-12.0) sec INR 1.2 H (<1.2) APTT 44.8 H (22.0-30.0) sec Sodium (137-145) mmol/L Carbon Dioxide 20 L (22-30) mmol/L BUN 41 H (9-20) mg/dL Creatinine 1.56 H (0.66-1.25) mg/dL Glucose 107 H (74-99) mg/dL Calcium (8.4-10.2) mg/dL Alkaline Phosphatase 168 H (38-126) U/L Creatine Kinase <20 L (55-170) U/L Troponin I (0.000-0.034) ng/mL Total Protein 5.8 L (6.3-8.2) g/dL Albumin 2.8 L (3.5-5.0) g/dL Urine Protein (Negative) Urine Ketones (Negative) Urine Bilirubin (Negative) Hyaline Casts (0-2) /lpf Urine Mucus (None) /hpf 07/18/22 07/18/22 07/18/22 Range/Units 13:02 13:05 18:26 WBC (3.8-10.6) k/uL RBC (4.30-5.90) m/uL Hgb (13.0-17.5) gm/dL Hct (39.0-53.0) % MCHC (31.0-37.0) g/dL Plt Count (150-450) k/uL Neutrophils # (1.3-7.7) k/uL Lymphocytes # (1.0-4.8) k/uL Eosinophils # (0-0.7) k/uL PT (9.0-12.0) sec INR (<1.2) APTT (22.0-30.0) sec Sodium (137-145) mmol/L Carbon Dioxide (22-30) mmol/L BUN (9-20) mg/dL Creatinine (0.66-1.25) mg/dL Glucose (74-99) mg/dL Calcium (8.4-10.2) mg/dL Alkaline Phosphatase (38-126) U/L Creatine Kinase (55-170) U/L Troponin I 0.035 H* 0.036 H* (0.000-0.034) ng/mL Total Protein (6.3-8.2) g/dL Albumin (3.5-5.0) g/dL Urine Protein 1+ H (Negative) Urine Ketones Trace H (Negative) Urine Bilirubin 1+ H (Negative) Hyaline Casts 27 H (0-2) /lpf Urine Mucus Rare H (None) /hpf 07/19/22 07/19/22 Range/Units 07:10 07:10 WBC 14.8 H (3.8-10.6) k/uL RBC 2.89 L (4.30-5.90) m/uL Hgb 9.0 L D (13.0-17.5) gm/dL Hct 28.3 L (39.0-53.0) % MCHC (31.0-37.0) g/dL Plt Count 601 H (150-450) k/uL Neutrophils # 12.1 H (1.3-7.7) k/uL Lymphocytes # 0.6 L (1.0-4.8) k/uL Eosinophils # 1.1 H (0-0.7) k/uL PT (9.0-12.0) sec INR (<1.2) APTT (22.0-30.0) sec Sodium 136 L (137-145) mmol/L Carbon Dioxide 21 L (22-30) mmol/L BUN 39 H (9-20) mg/dL Creatinine 1.27 H (0.66-1.25) mg/dL Glucose (74-99) mg/dL Calcium 7.7 L (8.4-10.2) mg/dL Alkaline Phosphatase 155 H (38-126) U/L Creatine Kinase (55-170) U/L Troponin I (0.000-0.034) ng/mL Total Protein 5.0 L (6.3-8.2) g/dL Albumin 2.3 L (3.5-5.0) g/dL Urine Protein (Negative) Urine Ketones (Negative) Urine Bilirubin (Negative) Hyaline Casts (0-2) /lpf Urine Mucus (None) /hpf
--- NOTE | 2022-07-19 13:55 | P.CRDCN ---
History of Present Illness Consult date: 07/19/22 Consult reason: atrial fibrillation Chief complaint: generalized weakness History of present illness: History of present illness: Patient is a pleasant 87-year-old male with significant past medical history of CAD, CABG 5 vessels approximately 30 years ago, hypertension, hyperlipidemia who presented for generalized weakness. 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 Approximately 1-1/2 weeks ago he accidentally walked into the [facility] and drain both of his ankles. He was seen at the ID after that and was told he sprained both ankles. He was then given a "super Tylenol " pills by a friend and after taking his medication for 2 days he began to have bowel and bladder incontinence. He stopped the medication and the incontinence resolved. He still felt generalized weakness and not for brought him into the emergency department. He denies any chest pain, pressure, tightness. Denies any shortness of breath, dizziness, syncope, palpitations. Labs reviewed: Troponin 0.035, 0.036, 0.028; WBC 16.7, hemoglobin 11.2, platelets 65, potassium 3.9, creatinine 1.56, magnesium 1.8, TSH normal. Head CT no acute findings. EKG was reported as atrial fibrillation with right bundle branch block, 98 bpm- however upon further review EKG is sinus rhythm with occasional PAC. Chest x-ray shows no acute findings. REVIEW OF SYSTEMS: No fever or chills. No cough or expectoration. No diaphoresis. Patient denies headache, dizziness, blurred vision, double vision. Patient denies any stomach discomfort. No nausea, vomiting. No hematochezia. No hematemesis. Denies any black stools or blood in his stools. Denies dysuria or hematuria. No muscle weakness or numbness. No chest pain or pressure. Reports generalized weakness. PHYSICAL EXAMINATION: This is a 87-year-old male in no apparent distress at the time of my examination. HEENT: Head is atraumatic, normocephalic. Pupils are equal, round. Sclerae anicteric. Conjunctivae are clear. Mucous membranes of the mouth are moist. Neck is supple. There is no jugular venous distention. No carotid bruit is heard. CHEST EXAMINATION: Lungs are clear to auscultation. No chest wall tenderness is noted on palpation or with deep breathing. HEART EXAMINATION: Heart regular rate and rhythm. S1, S2 heard. No murmurs, gallops or rub. ABDOMEN: Soft, nontender. Bowel sounds are heard. No organomegaly noted. EXTREMITIES: 2+ peripheral pulses with no evidence of peripheral edema and no calf tenderness noted. NEUROLOGIC EXAMINATION: Patient is awake, alert and oriented x3. IMPRESSION AND PLAN: CAD status post CABG Hypertension Hyperlipidemia Generalized weakness PLAN: EKG personally reviewed, shows sinus rhythm with PACs. No evidence of atrial fibrillation at this time. We will check echocardiogram to evaluate heart function and structure. Continue home medications. Will follow. I am dictating on behalf of Dr. Patrice Lara's history/physical and asses sment/plan. Past Medical History Past Medical History: Coronary Artery Disease (CAD), Hyperlipidemia, Hypertension History of Any Multi-Drug Resistant Organisms: None Reported Past Surgical History: Coronary Bypass/CABG Past Anesthesia/Blood Transfusion Reactions: No Reported Reaction Past Psychological History: Anxiety Smoking Status: Former smoker Past Alcohol Use History: Occasional Past Drug Use History: None Reported Medications and Allergies Home Medications Medication Instructions Recorded Confirmed Type Metoprolol Tartrate [Lopressor] 50 mg PO BID 06/01/15 07/18/22 History diazePAM [Valium] 5 mg PO BID PRN 06/01/15 07/18/22 History hydroCHLOROthiazide [Hydrodiuril] 25 mg PO DAILY 06/01/15 07/18/22 History allopurinoL [Zyloprim] 100 mg PO DAILY 10/02/19 07/18/22 History Pravastatin Sodium [Pravachol] 40 mg PO HS 07/18/22 07/18/22 History Allergies Allergy/AdvReac Type Severity Reaction Status Date / Time Iodinated Contrast Media Allergy Anaphylaxis Verified 07/18/22 14:44 Physical Exam Vitals: Vital Signs Temp Pulse Pulse Resp BP BP Pulse Ox 07/19/22 08:00 97.9 F 94 16 118/67 95 07/19/22 04:00 90 18 125/66 92 L 07/18/22 23:47 80 18 118/63 97 07/18/22 20:00 98 18 132/64 97 07/18/22 18:53 98 16 131/66 96 07/18/22 18:00 91 18 120/87 98 07/18/22 14:27 80 16 152/62 98 07/18/22 13:01 79 18 118/81 98 07/18/22 12:00 97.4 F L 107 H 20 129/78 100 Intake and Output 07/18/22 07/19/22 07/19/22 22:59 06:59 14:59 Output Total 250 100 Balance -250 -100 Output: Urine 250 100 Other: Voiding Method Toilet Toilet Urinal Urinal # Voids 2 Weight 70.76 kg Results 07/19/22 07:10 07/19/22 07:10 Cardiac Enzymes 07/18/22 07/18/22 07/18/22 Range/Units 13:02 13:02 18:26 AST 30 (17-59) U/L Troponin I 0.035 H* 0.036 H* (0.000-0.034) ng/mL 07/18/22 07/19/22 Range/Units 21:03 07:10 AST 26 (17-59) U/L Troponin I 0.028 (0.000-0.034) ng/mL Coagulation 07/18/22 Range/Units 13:02 PT 12.1 H (9.0-12.0) sec APTT 44.8 H (22.0-30.0) sec CBC 07/18/22 Range/Units 13:02 WBC 16.7 H (3.8-10.6) k/uL RBC 3.74 L (4.30-5.90) m/uL Hgb 11.2 L (13.0-17.5) gm/dL Hct 36.4 L (39.0-53.0) % Plt Count 625 H (150-450) k/uL Comprehensive Metabolic Panel 07/18/22 07/19/22 Range/Units 13:02 07:10 Sodium 137 136 L (137-145) mmol/L Potassium 3.9 3.9 (3.5-5.1) mmol/L Chloride 100 102 (98-107) mmol/L Carbon Dioxide 20 L 21 L (22-30) mmol/L BUN 41 H 39 H (9-20) mg/dL Creatinine 1.56 H 1.27 H (0.66-1.25) mg/dL Glucose 107 H 82 (74-99) mg/dL Calcium 8.7 7.7 L (8.4-10.2) mg/dL AST 30 26 (17-59) U/L ALT 28 23 (4-49) U/L Alkaline Phosphatase 168 H 155 H (38-126) U/L Total Protein 5.8 L 5.0 L (6.3-8.2) g/dL Albumin 2.8 L 2.3 L (3.5-5.0) g/dL Current Medications Generic Name Dose Route Start Last Admin Trade Name Freq PRN Reason Stop Dose Admin Acetaminophen 650 mg 07/18/22 14:12 07/19/22 08:17 Acetaminophen Tab 325 Mg Tab PO 650 mg Q6HR PRN Administration Mild Pain or Fever > 100.5 Allopurinol 100 mg 07/19/22 09:00 07/19/22 08:12 Allopurinol 100 Mg Tab PO 100 mg DAILY TRUPTI Administration Aspirin 325 mg 07/18/22 14:15 07/19/22 08:12 Aspirin 325 Mg Tab PO 325 mg DAILY TRUPTI Administration Diazepam 5 mg 07/18/22 16:47 Diazepam 5 Mg Tab PO BID PRN Anxiety Famotidine 20 mg 07/18/22 21:00 07/18/22 20:45 Famotidine 20 Mg Tab PO 20 mg HS TRUPTI Administration Hydrochlorothiazide 25 mg 07/19/22 09:00 07/19/22 08:11 Hydrochlorothiazide 25 Mg Tab PO 25 mg DAILY TRUPTI Administration Sodium Chloride 1,000 mls @ 75 mls/hr 07/18/22 14:15 07/19/22 03:28 Saline 0.9% IV Not Given .[id number] [facility] Metoprolol Tartrate 50 mg 07/18/22 21:00 07/19/22 08:12 Metoprolol Tartrate 50 Mg Tab PO 50 mg BID TRUPTI Administration Naloxone HCl 0.2 mg 07/18/22 14:12 Naloxone 0.4 Mg/Ml 1 Ml Vial IV Q2M PRN Opioid Reversal Pravastatin Sodium 40 mg 07/18/22 21:00 07/18/22 20:45 Pravastatin Sodium 40 Mg Tab PO 40 mg HS TRUPTI Administration Tramadol HCl 50 mg 07/18/22 14:12 Tramadol 50 Mg Tab PO Q6H PRN Moderate Pain (Scale 4 to 6) Intake and Output 07/18/22 07/19/22 07/19/22 22:59 06:59 14:59 Output Total 250 100 Balance -250 -100 Output: Urine 250 100 Other: Voiding Method Toilet Toilet Urinal Urinal # Voids 2 Weight 70.76 kg 07/18/22 13:02 07/19/22 07:10
[2022-07-19 15:30] LABS: Amphetamine Screen,Urine Not Detected (NotDetected); Barbiturate Screen,Urine Not Detected (NotDetected); Benzodiazepines Screen,Urine Detected (NotDetected); Cocaine Screen,Urine Not Detected (NotDetected); Methadone Screen, Urine Not Detected (NotDetected); Opiate Screen,Urine Not Detected (NotDetected); Oxycodone Screen, Urine Not Detected (NotDetected); Phencyclidine Screen,Urine Not Detected (NotDetected); Tricyclic Antidepressant,Urine Detected (NotDetected); Urn Cannabinoid Scrn Not Detected (NotDetected)
[2022-07-19] MEDS: FAMOTIDINE 20 MG TAB PO SCH (20:56)
[2022-07-19] MEDS: PRAVASTATIN SODIUM 40 MG TAB PO SCH (20:56)
[2022-07-19 23:33] LABS: Urine Alcohol Negative (Negative); Urine Barbiturate Negative (Negative); Urine Cocaine Negative (Negative); Urine Methadone Negative (Negative); Urine Opiates Negative (Negative); Urine Phencyclidine Negative (Negative)
[2022-07-20] MEDS: SODIUM CHLORIDE 0.9% 1,000 ML IV SCH (06:26)
[2022-07-20] MEDS: allopurinoL 100 MG TAB PO SCH (08:33)
[2022-07-20] MEDS: METOPROLOL TARTRATE 50 MG TAB PO SCH ×2 (08:33→19:59)
[2022-07-20] MEDS: hydroCHLOROthiazide 25 MG TAB PO SCH (08:34)
[2022-07-20] MEDS: ASPIRIN 81 MG PO SCH (08:34)
[2022-07-20 09:23] LABS: HCT 30.4 % (39.0-53.0); HGB 9.5 gm/dL (13.0-17.5); Hypochromasia Slight; MCH 30.4 pg (25.0-35.0); MCHC 31.2 g/dL (31.0-37.0); MCV 97.6 fL (80.0-100.0); Mean Platelet Volume 7.8; Platelet Count 655 k/uL (150-450); RBC 3.11 m/uL (4.30-5.90); RDW 13.9 % (11.5-15.5); WBC 16.3 k/uL (3.8-10.6)
[2022-07-20 09:32] LABS: African American GFR (CKD) 65 (>60 ml/min/1.73 sqM); Anion Gap 9 mmol/L; Blood Urea Nitrogen 31 mg/dL (9-20); Carbon Dioxide 23 mmol/L (22-30); Chloride 104 mmol/L (98-107); Glucose 163 mg/dL (74-99); Non-African American GFR(CKD) 56 (>60 ml/min/1.73 sqM); Potassium 3.6 mmol/L (3.5-5.1); Sodium 136 mmol/L (137-145)
--- NOTE | 2022-07-20 09:32 | P.PN ---
Subjective Progress Note Date: 07/20/22 This is a pleasant 87-year-old male with significant past medical history of CAD, CABG 5 vessels approximately 30 years ago, hypertension, and hyperlipidemia. He presented for generalized weakness. 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 Her acid the patient in consultation after EKG was reported as atrial fibrillation with right bundle branch block however upon further review EKG is sinus rhythm with occasional PAC. He is maintaining sinus mechanism there's been no evidence of atrial fibrillation. He has been hydrated with IV fluids. Renal function has improved somewhat with a creatinine of 1.27 down from 1.56. Objective - Vital Signs Vital signs: Vital Signs Temp 98.7 F 07/20/22 07:27 Pulse 82 07/20/22 07:27 Resp 17 07/20/22 07:27 BP 105/54 07/20/22 07:27 Pulse Ox 98 07/20/22 08:02 FiO2 Intake & Output 07/19/22 07/20/22 07/20/22 18:59 06:59 18:59 Intake Total 780 600 Output Total 400 300 Balance 380 300 Intake: Oral 780 600 Output: Urine 400 300 Other: Voiding Method Toilet Toilet Urinal Urinal # Voids 2 - Exam HEENT: Head is atraumatic, normocephalic. Pupils are equal, round. Sclerae anicteric. Conjunctivae are clear. Mucous membranes of the mouth are moist. Neck is supple. There is no jugular venous distention. No carotid bruit is heard. CHEST EXAMINATION: Lungs are clear to auscultation. No chest wall tenderness is noted on palpation or with deep breathing. HEART EXAMINATION: Heart regular rate and rhythm. S1, S2 heard. No murmurs, gallops or rub. ABDOMEN: Soft, nontender. Bowel sounds are heard. No organomegaly noted. EXTREMITIES: 2+ peripheral pulses with no evidence of peripheral edema and no calf tenderness noted. NEUROLOGIC EXAMINATION: Patient is awake, alert and oriented x3. - Labs CBC & Chem 7: 07/20/22 08:57 07/19/22 07:10 Labs: Abnormal Lab Results - Last 24 Hours (Table) 07/18/22 07/19/22 07/19/22 Range/Units 13:05 07:10 16:36 WBC 14.8 H (3.8-10.6) k/uL RBC 2.89 L (4.30-5.90) m/uL Hgb 9.0 L D (13.0-17.5) gm/dL Hct 28.3 L (39.0-53.0) % Plt Count 601 H (150-450) k/uL Neutrophils # 12.1 H (1.3-7.7) k/uL Lymphocytes # 0.6 L (1.0-4.8) k/uL Eosinophils # 1.1 H (0-0.7) k/uL U Tricyclic Antidepress Detected H (NotDetected) U Benzodiazepines Scrn Detected H Positive A (NotDetected) 07/20/22 Range/Units 08:57 WBC 16.3 H (3.8-10.6) k/uL RBC 3.11 L (4.30-5.90) m/uL Hgb 9.5 L (13.0-17.5) gm/dL Hct 30.4 L (39.0-53.0) % Plt Count 655 H (150-450) k/uL Neutrophils # (1.3-7.7) k/uL Lymphocytes # (1.0-4.8) k/uL Eosinophils # (0-0.7) k/uL U Tricyclic Antidepress (NotDetected) U Benzodiazepines Scrn (NotDetected) Assessment and Plan Assessment: CAD status post CABG Hypertension Hyperlipidemia Generalized weakness Plan: From cardiology's perspective there's been no evidence of atrial fibrillation this time. If there is no significant abnormality noted on the echocardiogram we will follow the patient on an as-needed basis. Please do hesitate to contact us with questions. SOCIAL SERVICE WORKER note has been reviewed, I agree with a documented findings and plan of care. Patient was seen and examined.
[2022-07-20] MEDS: ACETAMINOPHEN TAB 325 MG TAB PO PRN (10:40)
--- NOTE | 2022-07-20 16:08 | P.PN ---
Subjective Progress Note Date: 07/20/22 Patient is a 87-year-old male with PMH of gout, hypertension, CAD, dyslipidemia, chronic lower back pain presents to the ED for generalized weakness. Patient reports hitting both of his shins on his cover remover 10 days ago. [facility] and [facility] with pain medication. He reports his nursing friend give an unknown medication to take 4 pills every 6 hours. Over the next 2 days he reported profuse diarrhea and bladder and bowel incontinence. His incontinence improved he stopped taking this medication. However, he has been feeling progressively weak since then which prompted him to come to the ED. He denies any headache, lower extremity edema, nausea or vomiting, fever or chills, cough, chest pain, shortness of palpitations. No changes in appetite or weight. He denies any dizziness. In the ED, he was noted to be tachycardic with heart rate of 107. Vital signs were otherwise stable. CBC showed leukocytosis of 16.7 and hemoglobin of 11.2 with platelet count of 625. INR was 1.2. CMP showed a bicarb of 20, BUN of 41, creatinine 1.56, glucose of 107, alkaline phosphatase 168, albumin of 2.8. Troponin was 0.035. TSH within normal limits. Creatinine kinase within normal limits. Urinalysis negative for nitrite or leukocyte esterase. Influenza, RSV, COVID-19 negative. EKG showed atrial fibrillation with ventricular rate of 98. Brain CT negative for acute finding. Chest x-ray showed findings of COPD. Patient is admitted for generalized weakness. Troponins were mildly elevated but trended down, acute coronary syndrome was ruled out. Cardiology was consulted and recommended no further workup is EKG showed sinus rhythm with occasional PACs. He did have an acute drop in his hemoglobin from 11.2-9 which is thought to be dilutional in nature. PT and OT evaluated the patient and recommended rehab. Patient was agreeable for [facility]. Insurance authorization is pending. Patient was seen and examined. No acute events overnight. Reports continued weakness but improved from admission. He is able to work with PT today. General: non toxic, no distress, appears at stated age Derm: warm, dry Head: atraumatic, normocephalic, symmetric Eyes: EOMI, no lid lag, anicteric sclera Cardiovascular: Normal S1 S2, no murmur Lungs: CTA bilateral, no rhonchi, no rales , no accessory muscle use Ext: no gross muscle atrophy, no edema, no contractures Neuro: no focal neuro deficits Psych: Alert, oriented, appropriate affect Troponin elevation Generalized weakness Acute kidney injury Leukocytosis Normocytic anemia with thrombocytosis Supratherapeutic INR Chronic conditions: Gout, hypertension, CAD, dyslipidemia, chronic lower back pain Based on my assessment of this patient, this patient meets a moderate complexity level of care. Patient has an acute diagnosis of elevated troponins that poses a threat to life or bodily function. Troponins trending down, ACS has been ruled out. He will be continued on ASA 81 mg PO QD, Pravastatin 40 mg PO QHS and Metoprolol 50 mg PO BID. Echocardiogram is pending. Cardiology on board. Drop in Hg is likely dilution. There are no active signs of bleeding. UDS + benzodiazepine. Patient is not sure what medication he took. PT and OT will be consulted to work with this patient. We will discontinue IV hydration and encourage hydration by mouth. FREDRICK improved. Unknown reason for leukocytosis, no signs of active infection, will continue to monitor. Patient is medically stable. Anticipate discharge to rehab when we obtain insurance authorization. Lovenox for DVT prophylaxis. FULL CODE. Daughter is the decision maker. I have reviewed the following senior financial consultant notes: Cardiology note 07/20 - no evidence of atrial fibrillation I have reviewed the results of the following tests: CBC showed leukocytosis of 16.3 and hemoglobin of 9.5 with platelet count of 655. CMP shows Na 136, BUN of 31, Ca of 8. I have ordered the following tests: CBC ordered for tomorrow morning. I have discussed the care of this patient with the following independent historian: None. I have independently interpreted the following test below: None. I have discussed the management of this patient with the following physician: None. Objective - Vital Signs Vital signs: Vital Signs Temp 98.2 F 07/20/22 12:04 Pulse 61 07/20/22 12:04 Resp 18 07/20/22 12:04 BP 108/56 07/20/22 12:04 Pulse Ox 95 07/20/22 12:04 FiO2 Intake & Output 07/19/22 07/20/22 07/20/22 18:59 06:59 18:59 Intake Total 780 600 Output Total 400 300 200 Balance 380 300 -200 Intake: Oral 780 600 Output: Urine 400 300 200 Other: Voiding Method Toilet Toilet Toilet Urinal Urinal Urinal # Voids 2 1 # Bowel Movements 1 - Labs CBC & Chem 7: 07/20/22 08:57 07/20/22 08:57 Labs: Abnormal Lab Results - Last 24 Hours (Table) 07/19/22 07/20/22 07/20/22 Range/Units 16:36 08:57 08:57 WBC 16.3 H (3.8-10.6) k/uL RBC 3.11 L (4.30-5.90) m/uL Hgb 9.5 L (13.0-17.5) gm/dL Hct 30.4 L (39.0-53.0) % Plt Count 655 H (150-450) k/uL Sodium 136 L (137-145) mmol/L BUN 31 H (9-20) mg/dL Glucose 163 H (74-99) mg/dL Calcium 8.0 L (8.4-10.2) mg/dL U Benzodiazepines Scrn Positive A (Negative)
[2022-07-20] MEDS: FAMOTIDINE 20 MG TAB PO SCH (19:59)
[2022-07-20] MEDS: PRAVASTATIN SODIUM 40 MG TAB PO SCH (19:59)
[2022-07-20] MEDS: traMADol 50 MG TAB PO PRN (20:01)
[2022-07-21] MEDS: hydroCHLOROthiazide 25 MG TAB PO SCH (08:42)
[2022-07-21] MEDS: METOPROLOL TARTRATE 50 MG TAB PO SCH ×2 (08:42→20:12)
[2022-07-21] MEDS: ASPIRIN 81 MG PO SCH (08:42)
[2022-07-21] MEDS: allopurinoL 100 MG TAB PO SCH (08:42)
[2022-07-21 09:00] LABS: Basophils % (A) 0 %; Eosinophils # (A) 1.1 k/uL (0-0.7); Eosinophils % (A) 6 %; HCT 31.2 % (39.0-53.0); HGB 9.7 gm/dL (13.0-17.5); Lymphocytes # (A) 0.8 k/uL (1.0-4.8); Lymphocytes % (A) 5 %; MCH 30.6 pg (25.0-35.0); MCHC 31.2 g/dL (31.0-37.0); MCV 97.8 fL (80.0-100.0); Mean Platelet Volume 7.4; Monocytes # (A) 0.7 k/uL (0-1.0); Monocytes % (A) 4 %; Neutrophils # (A) 14.8 k/uL (1.3-7.7); Neutrophils % (A) 84 %; Platelet Count 766 k/uL (150-450); RBC 3.19 m/uL (4.30-5.90); RDW 13.7 % (11.5-15.5); WBC 17.6 k/uL (3.8-10.6)
[2022-07-21 09:14] LABS: African American GFR (CKD) 70 (>60 ml/min/1.73 sqM); Anion Gap 11 mmol/L; Blood Urea Nitrogen 24 mg/dL (9-20); Carbon Dioxide 23 mmol/L (22-30); Chloride 103 mmol/L (98-107); Glucose 147 mg/dL (74-99); Non-African American GFR(CKD) 61 (>60 ml/min/1.73 sqM); Potassium 3.4 mmol/L (3.5-5.1); Sodium 137 mmol/L (137-145)
[2022-07-21] MEDS ORDERED: POTASSIUM CHLORIDE ER 20 MEQ TAB.ER PO STA (11:19)
--- NOTE | 2022-07-21 11:21 | P.PN ---
Subjective Progress Note Date: 07/21/22 Hospital Course: 87-year-old male with PMH of gout, hypertension, CAD, dyslipidemia, chronic lower back pain presents to the ED for generalized weakness. In the ED, he was noted to be tachycardic with heart rate of 107. Vital signs were otherwise stable. CBC showed leukocytosis of 16.7 and hemoglobin of 11.2 with platelet count of 625. INR was 1.2. CMP showed a bicarb of 20, BUN of 41, creatinine 1.56, glucose of 107, alkaline phosphatase 168, albumin of 2.8. Troponin was 0.035. TSH within normal limits. Creatinine kinase within normal limits. Urinalysis negative for nitrite or leukocyte esterase. Influenza, RSV, COVID-19 negative. EKG showed sinus rhythm with ventricular rate of 98. Brain CT negative for acute finding. Chest x-ray showed findings of COPD. Patient is admitted for generalized weakness. Troponins were mildly elevated but trended down, acute coronary syndrome was ruled out. Cardiology was consulted and recommended no further workup is EKG showed sinus rhythm with occasional PACs. He did have an acute drop in his hemoglobin from 11.2-9 which is thought to be dilutional in nature. PT and OT evaluated the patient and recommended rehab. Patient was agreeable for [facility]. Insurance authorization is pending. Subjective: Patient seen and examined at bedside. No acute events overnight. Denies any chest pain, shortness breath, abdominal pain, nausea, vomiting, diarrhea, constipation, or urinary complaints. Pertinent positives and negatives as discussed above, a complete review of systems was performed and all other systems are negative. Vitals Signs Reviewed. General: nontoxic, no distress, appears at stated age Derm: warm, dry Head: atraumatic, normocephalic, symmetric Eyes: EOMI, no lid lag, anicteric sclera Mouth: no lip lesion, mucus membranes moist Cardiovascular: S1S2 reg, no murmur Lungs: CTA bilateral, no rhonchi, no rales , no accessory muscle use Abdominal: soft, nontender to palpation, no guarding, no appreciable organomegaly Ext: no gross muscle atrophy, no edema, no contractures Neuro: CN II-XI grossly intact, no focal neuro deficits Psych: Alert, oriented, appropriate affect Data Reviewed Today: Pertinent Labs: WBC 17.6, hemoglobin 9.7, platelet 766, potassium 3.4, creatinine 1.08 Assessment and Plan: Active: Type 2 NSTEMI Generalized weakness Hypokalemia Leukocytosis Normocytic anemia with thrombocytosis - troponin decreased, no chest pain, likely type 2 in the settin of FREDRICK -Cardiology following -echo pending - 40 mgEQ potassium oral ordered - no signs of infection, leukocytosis likely reactive versus bone marrow disorder, needs outpatient follow-up -No active bleeding Resolved: Acute kidney injury Chronic: Gout, hypertension, CAD, dyslipidemia, chronic lower back pain DVT ppx: Lovenox Code status: Full code Anticipated discharge place: Rehab Anticipated discharge time: Today Or tomorrow Objective - Vital Signs Vital signs: Vital Signs Temp 97.8 F 07/21/22 07:03 Pulse 84 07/21/22 07:03 Resp 17 07/21/22 07:03 BP 131/65 07/21/22 07:03 Pulse Ox 96 07/21/22 08:00 FiO2 Intake & Output 07/20/22 07/21/22 07/21/22 18:59 06:59 18:59 Intake Total 600 Output Total 200 Balance -200 600 Intake: Oral 600 Output: Urine 200 Other: Voiding Method Toilet Toilet Urinal Urinal # Voids 1 2 # Bowel Movements 1 - Labs CBC & Chem 7: 07/21/22 08:48 07/21/22 08:48 Labs: Abnormal Lab Results - Last 24 Hours (Table) 07/21/22 07/21/22 Range/Units 08:48 08:48 WBC 17.6 H (3.8-10.6) k/uL RBC 3.19 L (4.30-5.90) m/uL Hgb 9.7 L (13.0-17.5) gm/dL Hct 31.2 L (39.0-53.0) % Plt Count 766 H (150-450) k/uL Neutrophils # 14.8 H (1.3-7.7) k/uL Lymphocytes # 0.8 L (1.0-4.8) k/uL Eosinophils # 1.1 H (0-0.7) k/uL Potassium 3.4 L (3.5-5.1) mmol/L BUN 24 H (9-20) mg/dL Glucose 147 H (74-99) mg/dL Calcium 8.0 L (8.4-10.2) mg/dL
[2022-07-21] MEDS: ACETAMINOPHEN TAB 325 MG TAB PO PRN (16:32)
--- NOTE | 2022-07-21 19:24 | CA ---
Transthoracic Echo Report Name: Ike Johnson Age: 87 Gender: M : 1935 Exam Date: 07/21/2022 16:46 Exam Location: [facility] Ht (in): 70 Wt (lb): 156 Ordering Physician: Ozzie Smith MD Attending/Referring Phys: Fence Rider BZ Procedure CPT: Indications: trop elevation Cardiac Hx: Technical Quality: Fair Contrast 1: Total Dose (mL): Contrast 2: Total Dose (mL): MEASUREMENTS (Male / Female) Normal Values 2D ECHO LV Diastolic Diameter PLAX 4.3 cm 4.2 - 5.9 / 3.9 - 5.3 cm LV Systolic Diameter PLAX 3.4 cm IVS Diastolic Thickness 1.3 cm 0.6 - 1.0 / 0.6 - 0.9 cm LVPW Diastolic Thickness 1.2 cm 0.6 - 1.0 / 0.6 - 0.9 cm LV Relative Wall Thickness 0.6 RV Internal Dim ED PLAX 3.2 cm LVOT Diameter 2.3 cm LA Systolic Diameter LX 3.7 cm 3.0 - 4.0 / 2.7 - 3.8 cm LA Volume 56.6 cm??? 18 - 58 / 22 - 52 cm??? M-MODE Aortic Root Diameter MM 3.9 cm MV E Point Septal Separation 0.6 cm AV Cusp Separation MM 0.9 cm DOPPLER AV Peak Velocity 253.6 cm/s AV Peak Gradient 25.7 mmHg AV Mean Velocity 178.2 cm/s AV Mean Gradient 13.8 mmHg AV Velocity Time Integral 52.9 cm LVOT Peak Velocity 93.4 cm/s LVOT Peak Gradient 3.5 mmHg AV Area Cont Eq pk 1.5 cm??? MV Area PHT 3.3 cm??? Mitral E Point Velocity 60.9 cm/s Mitral A Point Velocity 100.1 cm/s Mitral E to A Ratio 0.6 MV Deceleration Time 232.5 ms TR Peak Velocity 246.7 cm/s TR Peak Gradient 24.3 mmHg Right Ventricular Systolic Press 28.7 mmHg FINDINGS Left Ventricle Left ventricular ejection fraction is estimated at 55-60 %. Left ventricular cavity size normal. Mildly increased septal wall thickness. Normal left ventricular wall motion. Right Ventricle Normal right ventricular size and function. Right ventricular systolic pressure within normal limits. Right ventricular systolic pressure estimated at 29 mm hg. Right Atrium Normal right atrial size. Left Atrium Normal left atrial size. Mitral Valve Mitral valve thickened. Moderate mitral annular calcification.mild mitral regurgitation. Aortic Valve Moderate Aortic valve sclerosis. Mild aortic stenosis with a peak gradient of 26 mmHg and a mean gradient of 14 mmHg. cannot exclude bicuspid aortic valve Tricuspid Valve Structurally normal tricuspid valve. Mild tricuspid regurgitation. Pulmonic Valve Structurally normal pulmonic valve. Trace pulmonic regurgitation. Pericardium Normal pericardium. No pericardial effusion. Aorta Mild aortic dilatation at the level of the sinuses of valsalva 39 mm CONCLUSIONS 1. Normal left ventricle size and systolic function with left ventricular hypertrophy 2. Moderate mitral annulus calcification with mild mitral regurgitation 3. Calcified aortic valve with mild aortic stenosis, cannot exclude bicuspid aortic valve 4. Mild tricuspid regurgitation with normal right ventricular systolic pressure Previewed by: Dr. Josefa Manuel MD (Electronically Signed) Final Date: 21 Jul 2022 19:24
[2022-07-21] MEDS: FAMOTIDINE 20 MG TAB PO SCH (20:12)
[2022-07-21] MEDS: traMADol 50 MG TAB PO PRN (20:12)
[2022-07-21] MEDS: PRAVASTATIN SODIUM 40 MG TAB PO SCH (20:12)
[2022-07-22] MEDS: ASPIRIN 81 MG PO SCH (08:54)
[2022-07-22] MEDS: ENOXAPARIN 40 MG/0.4 ML SYRINGE SQ SCH (08:54)
[2022-07-22] MEDS: METOPROLOL TARTRATE 50 MG TAB PO SCH ×2 (08:54→20:02)
[2022-07-22] MEDS: hydroCHLOROthiazide 25 MG TAB PO SCH (08:54)
[2022-07-22] MEDS: allopurinoL 100 MG TAB PO SCH (08:54)
[2022-07-22 11:28] LABS: African American GFR (CKD) 56.1 (60.0-200.0); Anion Gap 15.1 mmol/L (10.00-18.00); Blood Urea Nitrogen 22.1 mg/dL (9.0-27.0); Calcium 8.8 mg/dL (8.7-10.3); Carbon Dioxide 23.9 mmol/L (20.0-27.5); Non-African American GFR(CKD) 48.4 (60.0-200.0); Potassium 4.2 mmol/L (3.5-5.5)
[2022-07-22 13:04] LABS: Basophils # (A) 0.07 X 10*3/uL (0.00-0.10); Basophils % (A) 0.3 %; Eosinophils # (A) 1.45 X 10*3/uL (0.04-0.35); Eosinophils % (A) 6.6 %; HCT 31.6 % (39.6-50.0); HGB 9.8 g/dL (13.0-17.0); Immature Grans, Automated 0.8 %; Lymphocytes # (A) 1.35 X 10*3/uL (0.90-5.00); Lymphocytes % (A) 6.1 %; MCH 30.5 pg (27.0-32.0); MCV 98.4 fL (80.0-97.0); Monocytes # (A) 1.65 X 10*3/uL (0.20-1.00); Monocytes % (A) 7.5 %; NRBC Per 100 WBC 0 /100 WBCS (0.0-0.0); Neutrophils # (A) 17.27 X 10*3/uL (1.80-7.70); Neutrophils % (A) 78.7 %; Platelet Count 832 X 10*3/uL (140-440); RBC 3.21 X 10*6/uL (4.40-5.60); RDW 14.3 % (11.5-14.5); WBC 21.96 X 10*3/uL (4.50-10.00)
--- NOTE | 2022-07-22 13:46 | P.PN ---
Subjective Progress Note Date: 07/22/22 Hospital Course: 87-year-old male with PMH of gout, hypertension, CAD, dyslipidemia, chronic lower back pain presents to the ED for generalized weakness. In the ED, he was noted to be tachycardic with heart rate of 107. Vital signs were otherwise stable. CBC showed leukocytosis of 16.7 and hemoglobin of 11.2 with platelet count of 625. INR was 1.2. CMP showed a bicarb of 20, BUN of 41, creatinine 1.56, glucose of 107, alkaline phosphatase 168, albumin of 2.8. Troponin was 0.035. TSH within normal limits. Creatinine kinase within normal limits. Urinalysis negative for nitrite or leukocyte esterase. Influenza, RSV, COVID-19 negative. EKG showed sinus rhythm with ventricular rate of 98. Brain CT negative for acute finding. Chest x-ray showed findings of COPD. Patient is admitted for generalized weakness. Troponins were mildly elevated but trended down, acute coronary syndrome was ruled out. Cardiology was consulted and recommended no further workup is EKG showed sinus rhythm with occasional PACs. He did have an acute drop in his hemoglobin from 11.2-9 which is thought to be dilutional in nature. Leukocyte continues to worsen, platelet count continues to worsen, concerned about bone marrow disorder. Hematology consulted. Subjective: Patient seen and examined at bedside. No acute events overnight. Denies any chest pain, shortness breath, abdominal pain, nausea, vomiting, diarrhea, constipation, or urinary complaints. Pertinent positives and negatives as discussed above, a complete review of systems was performed and all other systems are negative. Vitals Signs Reviewed. General: nontoxic, no distress, appears at stated age Derm: warm, dry Head: atraumatic, normocephalic, symmetric Eyes: EOMI, no lid lag, anicteric sclera Mouth: no lip lesion, mucus membranes moist Cardiovascular: S1S2 reg, no murmur Lungs: CTA bilateral, no rhonchi, no rales , no accessory muscle use Abdominal: soft, nontender to palpation, no guarding, no appreciable organomegaly Ext: no gross muscle atrophy, no edema, no contractures Neuro: CN II-XI grossly intact, no focal neuro deficits Psych: Alert, oriented, appropriate affect Data Reviewed Today: Pertinent Labs: WBC 21.96, hemoglobin 9.8, platelets 332, sodium 139, potassium 4.2, creatinine 1.3 Echocardiogram report reviewed, normal LV systolic function, mild mitral regurgitation, mild tricuspid regurgitation Assessment and Plan: Active: Leukocytosis Normocytic anemia with thrombocytosis Type 2 NSTEMI Generalized weakness -no signs of infection, leukocytosis possible bone marrow disorder, hematology consulted -No active bleeding -Inflammatory workup pending - troponin decreased, no chest pain, likely type 2 in the settin of FREDRICK -Cardiology following, and no further interventions Resolved: Acute kidney injury Hypokalemia Chronic: Gout, hypertension, CAD, dyslipidemia, chronic lower back pain DVT ppx: Lovenox Code status: Full code Anticipated discharge place: Home with home care Anticipated discharge time: Pending clinical course Objective - Vital Signs Vital signs: Vital Signs Temp 98.2 F 07/22/22 11:23 Pulse 76 07/22/22 11:23 Resp 16 07/22/22 11:23 BP 130/85 07/22/22 11:23 Pulse Ox 99 07/22/22 11:23 FiO2 Intake & Output 07/21/22 07/22/22 07/22/22 18:59 06:59 18:59 Intake Total 600 Output Total 300 Balance 300 Intake: Oral 600 Output: Urine 300 Other: Voiding Method Toilet Urinal # Voids 2 - Labs CBC & Chem 7: 07/22/22 05:58 07/22/22 05:58 Labs: Abnormal Lab Results - Last 24 Hours (Table) 07/22/22 07/22/22 Range/Units 05:58 05:58 WBC 21.96 H (4.50-10.00) X 10*3/uL RBC 3.21 L (4.40-5.60) X 10*6/uL Hgb 9.8 L (13.0-17.0) g/dL Hct 31.6 L (39.6-50.0) % MCV 98.4 H (80.0-97.0) fL MCHC 31.0 L (32.0-37.0) g/dL Plt Count 832 H (140-440) X 10*3/uL Plt Count Comment INCREASED A Immature Gran # 0.17 H (0.00-0.04) X 10*3/uL Neutrophils # 17.27 H (1.80-7.70) X 10*3/uL Monocytes # 1.65 H (0.20-1.00) X 10*3/uL Eosinophils # 1.45 H (0.04-0.35) X 10*3/uL Est GFR (CKD-EPI)AfAm 56.1 L (60.0-200.0) Est GFR (CKD-EPI)NonAf 48.4 L (60.0-200.0)
[2022-07-22 15:28] LABS: Uric Acid 5.7 mg/dL (3.5-8.5)
[2022-07-22 16:42] LABS: C Reactive Protein 24.5 mg/dL (<1.0)
[2022-07-22] MEDS: FAMOTIDINE 20 MG TAB PO SCH (19:59)
[2022-07-22] MEDS: PRAVASTATIN SODIUM 40 MG TAB PO SCH (20:01)
[2022-07-22] MEDS: traMADol 50 MG TAB PO PRN (20:23)
[2022-07-23 07:03] LABS: Basophils % (A) 0 %; Eosinophils % (A) 5 %; HCT 29.9 % (39.0-53.0); HGB 9.3 gm/dL (13.0-17.5); Lymphocytes # (A) 1.2 k/uL (1.0-4.8); Lymphocytes % (A) 6 %; MCH 29.9 pg (25.0-35.0); MCHC 31.1 g/dL (31.0-37.0); MCV 96.1 fL (80.0-100.0); Mean Platelet Volume 7.5; Monocytes # (A) 0.8 k/uL (0-1.0); Monocytes % (A) 4 %; Neutrophils # (A) 15.4 k/uL (1.3-7.7); Neutrophils % (A) 82 %; Platelet Count 759 k/uL (150-450); RBC 3.12 m/uL (4.30-5.90); WBC 18.8 k/uL (3.8-10.6)
[2022-07-23 07:13] LABS: African American GFR (CKD) 67 (>60 ml/min/1.73 sqM); Anion Gap 10 mmol/L; Blood Urea Nitrogen 23 mg/dL (9-20); Calcium 8.1 mg/dL (8.4-10.2); Carbon Dioxide 27 mmol/L (22-30); Chloride 100 mmol/L (98-107); Glucose 124 mg/dL (74-99); Non-African American GFR(CKD) 58 (>60 ml/min/1.73 sqM); Potassium 3.7 mmol/L (3.5-5.1); Sodium 137 mmol/L (137-145)
[2022-07-23 07:59] VITALS: RESP 18
[2022-07-23] MEDS: ASPIRIN 81 MG PO SCH (09:45)
[2022-07-23] MEDS: METOPROLOL TARTRATE 50 MG TAB PO SCH (09:45)
[2022-07-23] MEDS: ENOXAPARIN 40 MG/0.4 ML SYRINGE SQ SCH (09:45)
[2022-07-23] MEDS: allopurinoL 100 MG TAB PO SCH (09:45)
[2022-07-23] MEDS: hydroCHLOROthiazide 25 MG TAB PO SCH (09:45)
[2022-07-23 12:16] VITALS: BP 114/56; PULSE 100; TEMP 97.5
--- NOTE | 2022-07-23 12:55 | P.DS ---
Providers Date of admission: 07/18/22 14:14 Expected date of discharge: 07/23/22 Attending physician: Rosalinda Alvarado DO Consults: 07/18/22 14:12 Consult Physician Routine Consulting Provider: Kaz Hill Consult Reason/Comments: a fib Do you want consulting provider notified?: Yes 07/22/22 13:25 Consult Physician Urgent Consulting Provider: Gildardo Gould Consult Reason/Comments: leukocytosis, thrombocytosis Do you want consulting provider notified?: Yes Primary care physician: [facility] Hospital Course: Assessment: Leukocytosis Normocytic anemia with thrombocytosis Type 2 NSTEMI Generalized weakness Acute kidney injury Hypokalemia Gout Hypertension CAD Dyslipidemia Chronic lower back pain Hospital Course: 87-year-old male with PMH of gout, hypertension, CAD, dyslipidemia, chronic lower back pain presents to the ED for generalized weakness. In the ED, he was noted to be tachycardic with heart rate of 107. Vital signs were otherwise stable. CBC showed leukocytosis of 16.7 and hemoglobin of 11.2 with platelet count of 625. INR was 1.2. CMP showed a bicarb of 20, BUN of 41, creatinine 1.56, glucose of 107, alkaline phosphatase 168, albumin of 2.8. Troponin was 0.035. TSH within normal limits. Creatinine kinase within normal limits. Urinalysis negative for nitrite or leukocyte esterase. Influenza, RSV, COVID-19 negative. EKG showed sinus rhythm with ventricular rate of 98. Brain CT negative for acute finding. Chest x-ray showed findings of COPD. Patient is admitted for generalized weakness. Troponins were mildly elevated but trended down, acute coronary syndrome was ruled out. Cardiology was consulted and recommended no further workup is EKG showed sinus rhythm with occasional PACs. He did have an acute drop in his hemoglobin from 11.2-9 which is thought to be dilutional in nature. Leukocyte continues to worsen, platelet count continues to worsen, concerned about bone marrow disorder. Hematology consulted. They saw and evaluated the patient on the day of discharge and agreed that patient could be followed up as an outpatient for further workup. Patient was subsequently discharged home with home care services as well as DC follow-up as well as hematology follow-up. I spent 35 minutes coordinating this discharge and 07/23 Gen: awake, alert HEENT: normocephalic, atraumatic, good hearing acuity, moist mucous membranes Resp: good air exchange, breathing comfortably with no accessory muscle use CVS: good distal perfusion x 4, GI: soft, NTTP, ND : no SPT, no CVAT, dozier catheter not present MSK: no pitting edema, no clubbing Neuro: non-focal, moving all extremities Psych: cooperative, euthymic mood Patient Condition at Discharge: Good Plan - Discharge Summary Discharge Rx Participant: No New Discharge Prescriptions: New Aspirin 81 mg PO DAILY #30 tab Famotidine [Pepcid] 20 mg PO HS #30 tab Continue diazePAM [Valium] 5 mg PO BID PRN PRN Reason: Anxiety Metoprolol Tartrate [Lopressor] 50 mg PO BID hydroCHLOROthiazide [Hydrodiuril] 25 mg PO DAILY allopurinoL [Zyloprim] 100 mg PO DAILY Pravastatin Sodium [Pravachol] 40 mg PO HS Discharge Medication List Metoprolol Tartrate [Lopressor] 50 mg PO BID 06/01/15 [History] diazePAM [Valium] 5 mg PO BID PRN 06/01/15 [History] hydroCHLOROthiazide [Hydrodiuril] 25 mg PO DAILY 06/01/15 [History] allopurinoL [Zyloprim] 100 mg PO DAILY 10/02/19 [History] Pravastatin Sodium [Pravachol] 40 mg PO HS 07/18/22 [History] Aspirin 81 mg PO DAILY #30 tab 07/22/22 [Rx] Famotidine [Pepcid] 20 mg PO HS #30 tab 07/22/22 [Rx] Follow up Appointment(s)/Referral(s): [facility] Visiting Nurse, [NON-STAFF] - 1-2 Days [facility]Clinic [Primary Care Provider] - 1-2 days Patient Instructions/Handouts: Heart Healthy Diet (DC), Hypokalemia (DC), Leukocytosis (DC), Weakness (DC) Discharge/Stand Alone Forms: Who Do I Call?, Community Resources, Help In The Home, Personal Clerk Guide Discharge Disposition: HOME SELF-CARE
--- NOTE | 2022-07-23 14:49 | P.CONS ---
History of Present Illness - Reason for Consult Consult date: 07/23/22 leukocytosis and thrombocytosis Requesting physician: Jimenez Coulter - Chief Complaint weakness - History of Present Illness Patient is a 87-year-old male with PMH of hypertension, CAD, and dyslipidemia. we will consult up for thrombocytosis and leukocytosis. Patient presented to the ER for generalized weakness. Patient reports that he began taking an unknown pain medication from a friend taking 4 pills at a time for couple days and subsequently developed profuse diarrhea and urinary and bowel incontinence. Patient reports progressing weakness and was unable to ambulate at that time at which time he presented to the ER for further evaluation. Patient reports feeling improved since admission. He denies headache and visual disturbances. Denies nausea and vomiting. Denies any episodes of bleeding. Denies cough, chest pain, shortness of breath, fever and chills. Patient denies night sweats and unintentional weight loss. Denies early satiety Upon admission CBC showed leukocytosis of 16.7 and hemoglobin of 11.2 with platelet count of 625. Today hemoglobin was 9.3, WBC 18.8, platelets 759,000. Urinalysis negative for nitrite or leukocyte esterase. Influenza, RSV, COVID-[address] negative for acute finding. Chest x-ray showed findings of COPD. Echocardiogram revealed normal left ventricle size and systolic function with left ventricular hypertrophy. Review of Systems 10 point ROS is negative except as stated in the HPI Past Medical History Past Medical History: Coronary Artery Disease (CAD), Hyperlipidemia, Hypertension History of Any Multi-Drug Resistant Organisms: None Reported Past Surgical History: Coronary Bypass/CABG Past Anesthesia/Blood Transfusion Reactions: No Reported Reaction Past Psychological History: Anxiety Smoking Status: Former smoker Past Alcohol Use History: Occasional Past Drug Use History: None Reported Medications and Allergies Home Medications Medication Instructions Recorded Confirmed Type Metoprolol Tartrate [Lopressor] 50 mg PO BID 06/01/15 07/18/22 History diazePAM [Valium] 5 mg PO BID PRN 06/01/15 07/18/22 History hydroCHLOROthiazide [Hydrodiuril] 25 mg PO DAILY 06/01/15 07/18/22 History allopurinoL [Zyloprim] 100 mg PO DAILY 10/02/19 07/18/22 History Pravastatin Sodium [Pravachol] 40 mg PO HS 07/18/22 07/18/22 History Aspirin 81 mg PO DAILY #30 tab 07/22/22 Rx Famotidine [Pepcid] 20 mg PO HS #30 tab 07/22/22 Rx Allergies Allergy/AdvReac Type Severity Reaction Status Date / Time Iodinated Contrast Media Allergy Anaphylaxis Verified 07/18/22 14:44 Physical Exam Vitals: Vital Signs Temp Pulse Resp BP Pulse Ox 07/23/22 12:15 97.5 F L 100 18 114/56 96 07/23/22 07:58 98.5 F 87 18 121/65 96 07/23/22 00:49 98.7 F 90 17 123/66 98 07/22/22 20:05 16 07/22/22 18:49 98.3 F 96 16 126/77 95 Intake and Output 07/22/22 07/23/22 07/23/22 22:59 06:59 14:59 Intake Total 120 600 358 Balance 120 600 358 Intake: Oral 120 600 358 Other: Voiding Method Toilet Toilet Urinal Urinal # Voids 4 2 # Bowel Movements 1 - Constitutional General appearance: no acute distress - EENT Eyes: anicteric sclerae, EOMI ENT: hearing grossly normal - Neck Neck: no lymphadenopathy - Respiratory Respiratory: bilateral: CTA - Cardiovascular Rhythm: regular Heart sounds: normal: S1, S2 Abnormal Heart Sounds: no systolic murmur, no diastolic murmur, no rub, no S3 Gallop, no S4 Gallop, no click, no other - Gastrointestinal General gastrointestinal: soft, no tenderness - Integumentary Integumentary: pale - Neurologic grossly intact - Musculoskeletal Musculoskeletal: generalized weakness - Psychiatric Psychiatric: A&O x's 3, appropriate affect, intact judgment & insight Results CBC & Chem 7: 07/23/22 06:45 07/23/22 06:45 Labs: Abnormal Lab Results - Last 24 Hours (Table) 07/22/22 07/22/22 07/22/22 Range/Units 14:30 14:30 14:30 WBC (3.8-10.6) k/uL RBC (4.30-5.90) m/uL Hgb (13.0-17.5) gm/dL Hct (39.0-53.0) % Plt Count (150-450) k/uL Neutrophils # (1.3-7.7) k/uL Eosinophils # (0-0.7) k/uL ESR 127 H (0-15) mm/hr BUN (9-20) mg/dL Glucose (74-99) mg/dL Calcium (8.4-10.2) mg/dL C-Reactive Protein 24.5 H (<1.0) mg/dL Procalcitonin 0.40 H (0.02-0.09) ng/mL 07/23/22 07/23/22 Range/Units 06:45 06:45 WBC 18.8 H (3.8-10.6) k/uL RBC 3.12 L (4.30-5.90) m/uL Hgb 9.3 L (13.0-17.5) gm/dL Hct 29.9 L (39.0-53.0) % Plt Count 759 H (150-450) k/uL Neutrophils # 15.4 H (1.3-7.7) k/uL Eosinophils # 1.0 H (0-0.7) k/uL ESR (0-15) mm/hr BUN 23 H (9-20) mg/dL Glucose 124 H (74-99) mg/dL Calcium 8.1 L (8.4-10.2) mg/dL C-Reactive Protein (<1.0) mg/dL Procalcitonin (0.02-0.09) ng/mL Comments: echocardiogram reviewed Chest x-ray: report reviewed CT Scan - head: report reviewed Assessment and Plan (1) Thrombocytosis Current Visit: Yes Status: Acute Priority: Medium Code(s): D75.839 - THR OMBOCYTOSIS, UNSPECIFIED SNOMED Code(s): 4661685 (2) Leukocytosis Current Visit: Yes Status: Acute Priority: Medium Code(s): D72.829 - ELEVATED WHITE BLOOD CELL COUNT, UNSPECIFIED SNOMED Code(s): 200847031 Plan: Thrombocytosis/Leukocytosis: -Upon admission CBC showed leukocytosis of 16.7 and hemoglobin of 11.2 with platelet count of 625,000. Today hemoglobin was 9.3, WBC 18.8 with elevations in neutrophils, monocytes, and eosinophils, platelets 759,000. -Thrombocytosis and leukocytosis could be reactive to acute condition -Anemia and MPN workup ordered to r/o other underlying etiologies -Will schedule f/u outpatient to review hospital workup and for further evaluation as warranted by pending workup. Patient is agreeable with plan *Patient is cleared from hem/onc standpoint once labs are collected, and cleared by IM and other consulted medical specialties attests: I have performed H&P and developed impression and plan of care for patient, discussed with dictator. I agree with dictated note, document as a scribe
[2022-07-23 21:33] LABS: % Iron Saturation 8.12 (15.00-50.00)
[2022-07-25 10:10] LABS: Methylmalonic Acid 0.58 umol/L (<0.40)
== END 2022-07-23 15:40 | disposition home or self-care (01) | DRG 682 ==
LOC: EC 11:50 → INTOOBSV 14:14 → OBSVTOIN 14:14 → 5NMEDONC 14:14 → 3SCARD 17:58 → 5NMEDONC 07-19 17:36
PROVIDERS: ADMIT Internal Medicine; ATTEND Internal Medicine
DX: N17.9 Acute kidney failure, unspecified (principal); I21.A1 Myocardial infarction type 2; R53.1 Weakness; I25.10 Atherosclerotic heart disease of native coronary artery without angina pectoris; Z20.822 Contact with and (suspected) exposure to COVID-19; Z95.1 Presence of aortocoronary bypass graft; I10 Essential (primary) hypertension; E78.5 Hyperlipidemia, unspecified; M10.9 Gout, unspecified; D64.9 Anemia, unspecified; R79.1 Abnormal coagulation profile; E87.6 Hypokalemia; F41.9 Anxiety disorder, unspecified; D75.839 Thrombocytosis, unspecified; Z79.01 Long term (current) use of anticoagulants; G89.29 Other chronic pain; M54.50 Low back pain, unspecified; I45.10 Unspecified right bundle-branch block; I48.91 Unspecified atrial fibrillation; J44.9 Chronic obstructive pulmonary disease, unspecified; R00.0 Tachycardia, unspecified; I49.3 Ventricular premature depolarization; I08.1 Rheumatic disorders of both mitral and tricuspid valves; R32 Unspecified urinary incontinence; E86.0 Dehydration; Z79.82 Long term (current) use of aspirin; Z79.899 Other long term (current) drug therapy; Z87.891 Personal history of nicotine dependence; Z91.041 Radiographic dye allergy status
CPT/HCPCS: 36415; 70450; 71046; 80048; 80053; 80306; 81001; 81206; 82525; 82550; 82607; 82728; 82746; 83540; 83550; 83605; 83615; 83735; 83921; 84100; 84145; 84439; 84443; 84481; 84484; 84550; 85025; 85027; 85610; 85652; 85730; 86140; 87636; 93005; 93306; 94760

== ENCOUNTER 2022-07-30 12:45 | Inpatient (IN) | payer OTHER, MEDICARE ==
[2022-07-30] MEDS ORDERED: SODIUM CHLORIDE 0.9% 500 ML 500 ML IV STA (13:46)
[2022-07-30] MEDS ORDERED: HYDROmorphone 0.5 MG/0.5 ML SYRINGE IVP STA (14:25)
[2022-07-30 14:34] LABS: Basophils % (A) 0 %; Eosinophils # (A) 0.5 k/uL (0-0.7); Eosinophils % (A) 3 %; HCT 28.1 % (39.0-53.0); HGB 8.8 gm/dL (13.0-17.5); Hypochromasia Slight; Lymphocytes # (A) 0.9 k/uL (1.0-4.8); Lymphocytes % (A) 4 %; MCHC 31.4 g/dL (31.0-37.0); MCV 95.5 fL (80.0-100.0); Mean Platelet Volume 7.4; Monocytes # (A) 0.5 k/uL (0-1.0); Monocytes % (A) 2 %; Neutrophils # (A) 17.9 k/uL (1.3-7.7); Neutrophils % (A) 89 %; RBC 2.94 m/uL (4.30-5.90); RDW 14.5 % (11.5-15.5); WBC 20.1 k/uL (3.8-10.6)
[2022-07-30 15:21] LABS: Albumin 2.7 g/dL (3.5-5.0); Calcium 9.1 mg/dL (8.4-10.2); Potassium 3.8 mmol/L (3.5-5.1); Total Bilirubin 0.6 mg/dL (0.2-1.3); Total Protein 5.8 g/dL (6.3-8.2)
[2022-07-30 15:31] LABS: Platelet Count 1116 k/uL (150-450)
--- NOTE | 2022-07-30 16:05 | US ---
EXAMINATION TYPE: US scrotum with doppler. Grayscale and color Doppler Duplex imaging performed of idalia mcgee scrotum. DATE OF EXAM: 07/30/2022 COMPARISON: NONE CLINICAL INDICATION: Male, 87 years old with history of Testicular pain; pain EXAM MEASUREMENTS: TESTICLES: Right Testicle: 3.9 x 1.5 x 3.2 cm Left Testicle: 3.0 x 1.8 x 3.3 cm EPIDIDYMIS HEAD: Right Epididymis: 1.1 x .8 x .4 cm Left Epididymis: Not well visualized. Doppler performed to assess for testicular vascularity; good bilateral color flow and waveforms are s een. Presence of hydroceles: no Satisfactory blood flow seen during real-time scanning to both testicles. Comparison view towards end of study shows symmetric blood flow. IMPRESSION: Symmetric blood flow bilaterally.
--- NOTE | 2022-07-30 17:21 | ED ---
General Adult HPI - General Chief complaint: Urogenital Stated complaint: stomach pain Time Seen by Provider: 07/30/22 13:40 Source: patient, RN notes reviewed, old records reviewed Mode of arrival: wheelchair - History of Present Illness Initial comments: This is an 87-year-old male who presents emergency Department complaining of lower abdominal pain and testicular pain since last night. Patient denies any nausea vomiting or diarrhea. Patient denies any fever chills. Patient states the pain is severe. Patient denies any chest pain difficulty breathing or shortness of breath. Patient complains of lower back pain as well. Patient denies any injury or trauma. Patient states when he urinates the pain does get worse - Related Data Home Medications Medication Instructions Recorded Confirmed Metoprolol Tartrate [Lopressor] 50 mg PO BID 06/01/15 07/30/22 diazePAM [Valium] 5 mg PO BID PRN 06/01/15 07/30/22 hydroCHLOROthiazide [Hydrodiuril] 25 mg PO DAILY 06/01/15 07/30/22 allopurinoL [Zyloprim] 100 mg PO DAILY 10/02/19 07/30/22 Pravastatin Sodium [Pravachol] 40 mg PO HS 07/18/22 07/30/22 Previous Rx's Medication Instructions Recorded Aspirin 81 mg PO DAILY #30 tab 07/22/22 Famotidine [Pepcid] 20 mg PO HS #30 tab 07/22/22 Allergies Allergy/AdvReac Type Severity Reaction Status Date / Time Iodinated Contrast Media Allergy Anaphylaxis Verified 07/30/22 15:30 Review of Systems ROS Statement: Those systems with pertinent positive or pertinent negative responses have been documented in the HPI. ROS Other: All systems not noted in ROS Statement are negative. Past Medical History Past Medical History: Coronary Artery Disease (CAD), Hyperlipidemia, Hypertension History of Any Multi-Drug Resistant Organisms: None Reported Past Surgical History: Coronary Bypass/CABG Past Anesthesia/Blood Transfusion Reactions: No Reported Reaction Past Psychological History: Anxiety Smoking Status: Former smoker Past Alcohol Use History: Occasional Past Drug Use History: None Reported General Exam - General Exam Comments Initial Comments: GENERAL: Patient is well-developed and well-nourished. Patient is nontoxic and well- hydrated and is in mild distress. ENT: Neck is soft and supple. No significant lymphadenopathy is noted. Oropharynx is clear. Moist mucous membranes. Neck has full range of motion without eliciting any pain. EYES: The sclera were anicteric and conjunctiva were pink and moist. Extraocular movements were intact and pupils were equal round and reactive to light. Eyelid s were unremarkable. PULMONARY: Unlabored respirations. Good breath sounds bilaterally. No audible rales rhonchi or wheezing was noted. CARDIOVASCULAR: There is a regular rate and rhythm without any murmurs gallops or rubs. ABDOMEN: Soft and nontender with normal bowel sounds. GENITALIA: On exam the testicles and penis looked normal however touching his scrotum causing him quite a bit of pain SKIN: Skin is clear with no lesions or rashes and otherwise unremarkable. NEUROLOGIC: Patient is alert and oriented x3. Cranial nerves II through XII are grossly intact. Motor and sensory are also intact. Normal speech, volume and content. Symmetrical smile. MUSCULOSKELETAL: Normal extremities with adequate strength and full range of motion. LYMPHATICS: No significant lymphadenopathy is noted PSYCHIATRIC: Normal psychiatric evaluation. Course Vital Signs 07/30/22 12:52 Temperature 98.9 F Pulse Rate 83 Respiratory 18 Rate Blood Pressure 135/70 O2 Sat by Pulse 99 Oximetry Medical Decision Making - Medical Decision Making Was pt. sent in by a medical professional or institution (, PA, TIRE SETTER, urgent care, hospital, or fdc...) When possible be specific @ -No Did you speak to anyone other than the patient for history (EMS, parent, family, police, friend...)? What history was obtained from this source @ -No Did you review nursing and triage notes (agree or disagree)? Why? @ -I reviewed and agree with nursing and triage notes Were old charts reviewed (outside hosp., previous admission, EMS record, old EKG, old radiological studies, urgent care reports/EKG's, fdc records)? Report findings @ -I reviewed prior lab work on this patient and prior admissions Differential Diagnosis (chest pain, altered mental status, abdominal pain women, abdominal pain men, vaginal bleeding, weakness, fever, dyspnea, syncope, headache, dizziness, GI bleed, back pain, seizure, CVA, palpatations, mental health, musculoskeletal)? @ -Differential Abdominal Pain Men: Appendicitis, cholecystitis, diverticulosis, ischemic bowel, pancreatitis, hepatitis, UTI, gastroenteritis, AAA, incarcerated hernia, bowel obstruction, constipation, inflammatory bowel, hepatitis, peptic ulcer disease, splenic infarction, perforated viscus, testicular torsion, this is not meant to be an all-inclusive list EKG interpreted by me (3pts min.). @ -As above X-rays interpreted by me (1pt min.). @ -None done CT interpreted by me (1pt min.). @ -The abdomen pelvis was interpreted by myself as no acute normalities. U/S interpreted by me (1pt. min.). @ -Ultrasound of the testicle showed good flow to both testicles no acute a bnormality was noted What testing was considered but not performed or refused? (CT, X-rays, U/S, labs)? Why? @ -None What meds were considered but not given or refused? Why? @ -None Did you discuss the management of the patient with other professionals (professionals i.e. , PA, TIRE SETTER, lab, RT, psych nurse, licensed master social worker, criminal lawyer, teacher, disciplinary hearing officer, child welfare caseworker)? Give summary @ -I spoke with sound physicians agreed to admit the patient Was smoking cessation discussed for >3mins.? @ -No Was critical care preformed (if so, how long)? @ -No Were there social determinants of health that impacted care today? How? (Homelessness, low income, unemployed, alcoholism, drug addiction, lee sportation, low edu. Level, literacy, decrease access to med. care, senior care, rehab)? @ -No Was there de-escalation of care discussed even if they declined (Discuss DNR or withdrawal of care, Hospice)? DNR status @ -No What co-morbidities impacted this encounter? (DM, HTN, Smoking, COPD, CAD, Cancer, CVA, ARF, Chemo, Hep., AIDS, mental health diagnosis, sleep apnea, morbid obesity)? @ -None Was patient admitted / discharged? Hospital course, mention meds given and route, prescriptions, significant lab abnormalities, going to OR and other pertinent info. @ -Patient came to the hospital complaining of lower abdominal pain and severe testicular pain. Patient had an option of the testicles showed no acute abnormalities. Patient's CT of the abdomen pelvis showed no acute abnormalities. Laboratory indicated a high white count and high platelet count. I spoke with sound physicians agreed to admit the patient admitted the patient wrote admitting was consulted hematology Undiagnosed new problem with uncertain prognosis? @ -No Drug Therapy requiring intensive monitoring for toxicity (Heparin, Nitro, Ins ulin, Cardizem)? @ -No Were any procedures done? @ -No Diagnosis/symptom? @ -Abdominal pain Acute, or Chronic, or Acute on Chronic? @ -Acute Uncomplicated (without systemic symptoms) or Complicated (systemic symptoms)? @ -Complicated Side effects of treatment? @ -No Exacerbation, Progression, or Severe Exacerbation? @ -No Poses a threat to life or bodily function? How? (Chest pain, USA, OR, pneumonia, PE, COPD, DKA, ARF, appy, cholecystitis, CVA, Diverticulitis, Homicidal, Suicidal, threat to staff... and all critical care pts) @ -No Diagnosis/symptom? @ -Leukocytosis Acute, or Chronic, or Acute on Chronic? @ -Acute Uncomplicated (without systemic symptoms) or Complicated (systemic symptoms)? @ -Complicated Side effects of treatment? @ -none Exacerbation, Progression, or Severe Exacerbation] @ -no Poses a threat to life or bodily function? @ -no Diagnosis/symptom? @ -Testicular pain Acute, or Chronic, or Acute on Chronic? @ -Acute Uncomplicated (without systemic symptoms) or Complicated (systemic symptoms)? @ -Complicated Side effects of treatment? @ -[none] Eaceration, Progression, or Severe Exacerbation] @ -[no] Poss threat to life or bodily function? @ -[no] Diagnosis/symptom? @ -Thrombocytosis Acute, or Chronic, or Acute on Chronic? @ -Acute Uncomplicated (without systemic symptoms) or Complicated (systemic symptoms)? @ -Complicated Side effects of treatment? @ -none Exacerbation, Progression, or Severe Exacerbation] @ -no Poses a threat to life or bodily function? @ -no - Lab Data Result diagrams: 07/30/22 14:05 07/30/22 14:05 Lab Results 07/30/22 07/30/22 07/30/22 Range/Units 14:05 14:05 16:18 WBC 20.1 H (3.8-10.6) k/uL RBC 2.94 L (4.30-5.90) m/uL Hgb 8.8 L (13.0-17.5) gm/dL Hct 28.1 L (39.0-53.0) % MCV 95.5 (80.0-100.0) fL MCH 30.0 (25.0-35.0) pg MCHC 31.4 (31.0-37.0) g/dL RDW 14.5 (11.5-15.5) % Plt Count 1116 H* (150-450) k/uL MPV 7.4 Neutrophils % 89 % Lymphocytes % 4 % Monocytes % 2 % Eosinophils % 3 % Basophils % 0 % Neutrophils # 17.9 H (1.3-7.7) k/uL Lymphocytes # 0.9 L (1.0-4.8) k/uL Monocytes # 0.5 (0-1.0) k/uL Eosinophils # 0.5 (0-0.7) k/uL Basophils # 0.0 (0-0.2) k/uL Manual Slide Review Performed Hypochromasia Slight Sodium 138 (137-145) mmol/L Potassium 3.8 (3.5-5.1) mmol/L Chloride 96 L (98-107) mmol/L Carbon Dioxide 30 (22-30) mmol/L Anion Gap 12 mmol/L BUN 50 H (9-20) mg/dL Creatinine 1.50 H (0.66-1.25) mg/dL Est GFR (CKD-EPI)AfAm 47 (>60 ml/min/1.73 sqM) Est GFR (CKD-EPI)NonAf 41 (>60 ml/min/1.73 sqM) Glucose 128 H (74-99) mg/dL Plasma Lactic Acid Mikel 1.6 (0.7-2.0) mmol/L Calcium 9.1 (8.4-10.2) mg/dL Total Bilirubin 0.6 (0.2-1.3) mg/dL AST 23 (17-59) U/L ALT 24 (4-49) U/L Alkaline Phosphatase 214 H (38-126) U/L Total Protein 5.8 L (6.3-8.2) g/dL Albumin 2.7 L (3.5-5.0) g/dL Amylase 53 (30-110) U/L Lipase 121 (23-300) U/L Disposition Clinical Impression: Abdominal pain, Testicular pain, Leukocytosis, Thrombocytosis Disposition: ADMITTED IP TO THIS [facility] Referrals: [facility],Clinic [Primary Care Provider] - 1-2 days Time of Disposition: 20:17
--- NOTE | 2022-07-30 18:49 | CT ---
EXAMINATION TYPE: CT abdomen pelvis wo con DATE OF EXAM: 07/30/2022 HISTORY: Stomach pain CT DLP: 456 mGycm. Automated Exposure Control for Dose Reduction was Utilized. TECHNIQUE: CT scan of the abdomen and pelvis is performed without oral or IV contrast. COMPARISON: NONE FINDINGS: LUNG BASES: No acute findings, but coronary calcifications and descending aorta measures up to 4.7 cm caliber as seen. LIVER/GB: No significant abnormality is appreciated. PANCREAS: No significant abnormality is seen. SPLEEN: No significant abnormality is seen. ADRENALS: No significant abnormality is seen. KIDNEYS: No hydronephrosis or hydroureter or other acute process. BOWEL: No bowel dilation or focal inflammatory change. Colonic stool volume is within normal limits. PELVIC VISCERA: Prostatomegaly noted. LYMPH NODES: No greater than 1cm abdominal or pelvic lymph nodes are appreciated. OSSEOUS STRUCTURES: No significant abnormality is seen. Limitation of study: Without IV contrast there is limited CT sensitivity for focal visceral lesions, intraluminal filling defects, and vascular pathology. IMPRESSION: 1. No acute process. 2. CT findings as noted.
[2022-07-30] MEDS ORDERED: SODIUM CHLORIDE 0.9% 1,000 ML IV ONE (20:17)
[2022-07-30] MEDS ORDERED: DEXTROSE 5%-0.45% NACL 1,000 ML IV ONE (20:27)
[2022-07-31] MEDS: HYDROXYUREA 500 MG CAP PO SCH ×2 (00:45→08:21)
[2022-07-31] MEDS ORDERED: LEVOFLOXACIN 500 MG TAB PO SCH (03:00)
--- NOTE | 2022-07-31 03:10 | P.HPIM ---
History of Present Illness H&P Date: 07/30/22 Chief Complaint: testicular pain 87 year old male with hypertension , gout patient coming in with lower abd pain , severe scrotal pain ,urinary frequency (urinating every 1 hour) and dysuria . he denies fever, but reports chills, and fatigue. these symptoms and especially the scrotal pain worsened overnight yesterday however, he believes the scrotal pain has been building up for the past 2 weeks. he denies any trauma, denies any penile discharge or bleeding , denies any diarrhea nausea or vomiting. patient was here 2 weeks ago , and was found to have worsening leukocytosis without an identifiable source of infection . he was evaluated by hematology and cardiology , then was discharged home patient denies being sexually active, denies any trauma, denies any scrotal swelling or skin changes . denies any flank pain or history of kidney stones. Review of Systems Pertinent positives as noted in HPI. All other systems were reviewed and are negative Past Medical History Past Medical History: Coronary Artery Disease (CAD), Hyperlipidemia, Hypertension History of Any Multi-Drug Resistant Organisms: None Reported Past Surgical History: Coronary Bypass/CABG Past Anesthesia/Blood Transfusion Reactions: No Reported Reaction Past Psychological History: Anxiety Smoking Status: Former smoker Past Alcohol Use History: Occasional Past Drug Use History: None Reported Medications and Allergies Home Medications Medication Instructions Recorded Confirmed Type Metoprolol Tartrate [Lopressor] 50 mg PO BID 06/01/15 07/30/22 History diazePAM [Valium] 5 mg PO BID PRN 06/01/15 07/30/22 History hydroCHLOROthiazide [Hydrodiuril] 25 mg PO DAILY 06/01/15 07/30/22 History allopurinoL [Zyloprim] 100 mg PO DAILY 10/02/19 07/30/22 History Pravastatin Sodium [Pravachol] 40 mg PO HS 07/18/22 07/30/22 History Aspirin 81 mg PO DAILY #30 tab 07/22/22 07/30/22 Rx Famotidine [Pepcid] 20 mg PO HS #30 tab 07/22/22 07/30/22 Rx Allergies Allergy/AdvReac Type Severity Reaction Status Date / Time Iodinated Contrast Media Allergy Anaphylaxis Verified 07/30/22 15:30 Physical Exam Vitals: Vital Signs Temp Pulse Resp BP Pulse Ox 07/30/22 12:52 98.9 F 83 18 135/70 99 Intake and Output 05/11/23 05/11/23 05/11/23 06:59 14:59 22:59 Other: Weight 70.76 kg Constitutional: No acute distress, conversant, pleasant Eyes: Anicteric sclerae, moist conjunctiva, Pupils equal round reactive to light ENMT: NC/AT Oropharynx clear, no erythema, or exudates Neck: Supple, no masses, or JVD No carotid bruits No thyromegaly Lungs: Clear to auscultation Clear to percussion Normal respiratory effort, no accessory muscle use Cardiovascular: Heart regular in rate and rhythm, No murmurs, gallops, or rubs No peripheral edema Abdominal: Soft Nontender, no guarding, rebound or rigidity Abdomen moving with respiration Normoactive bowel sounds No hepatomegaly, No splenomegaly No palpable mass No abdominal wall hernia noted scrotum is unremarkable , no swelling no erythema , no penile discharge, left testis is extremely tender to the touch. not unusually warm to the touch. Skin: Normal temperature, tone, texture, turgor Extremities: No digital cyanosis No clubbing Pedal pulses intact and symmetrical Radial pulses intact and symmetrical No calf tenderness Psychiatric: Alert and oriented to person, place and time Appropriate affect Neuro Muscles Strength 4/5 in all 4 extremities Sensation to light touch grossly present throughout Cranial nerves II-XII grossly intact Lymphatics: no palpable cervical or supraclavicular lymph nodes Results CBC & Chem 7: 07/30/22 14:05 07/30/22 14:05 Labs: Abnormal Lab Results - Last 24 Hours (Table) 07/30/22 07/30/22 Range/Units 14:05 14:05 WBC 20.1 H (3.8-10.6) k/uL RBC 2.94 L (4.30-5.90) m/uL Hgb 8.8 L (13.0-17.5) gm/dL Hct 28.1 L (39.0-53.0) % Plt Count 1116 H* (150-450) k/uL Neutrophils # 17.9 H (1.3-7.7) k/uL Lymphocytes # 0.9 L (1.0-4.8) k/uL Chloride 96 L (98-107) mmol/L BUN 50 H (9-20) mg/dL Creatinine 1.50 H (0.66-1.25) mg/dL Glucose 128 H (74-99) mg/dL Alkaline Phosphatase 214 H (38-126) U/L Total Protein 5.8 L (6.3-8.2) g/dL Albumin 2.7 L (3.5-5.0) g/dL Assessment and Plan Assessment: 87 year old male presenting for severe scrotal pain of 2 weeks duration that worsened overnight suddenly with urinary symptoms of dysuria and frequency. I discussed the case with ED doc, and I accepted the admission for further treatment and evaluation with anticipated length of stay > 2 midnights severe left testicular pain suspected epididymitis symptoms of UTI plan check stat UA with reflex to culture (UA was not done in the ED yet) check Chlamydia and gonorrhea PCR (although patient claims not sexually active ) give empirically one time dose of rocephine 500 mg IM start on levofloxacin 500 mg PO daily tylenol for fever PRN 650 mg PO supportive care IVF hydration with D5 0.45 NS 130 cc per hour blood work showed severe leukocytosis of 20 morphine prn for pain control consult urology for testicular pain scrotal US , normal blood flow to the testicles abd CT , no acute pathology chronic anemia denies gi bleeding Hgb 8.8 FREDRICK BUN 50, Cr 1.5 check post void residual urine continue with d5 0.45 IVF as above monitor urine output thrombocytosis , severe platelet count > 1 million possible reactive to severe infection hematology consult initiate hydroxyurea , if infection confirmed , may consider stopping continue with daily low dose aspirin check Ristocetin check ferritin check ESR CRP CT abd showed intact spleen full code DVT PPX heparin sc tid
[2022-07-31] MEDS ORDERED: cefTRIAXone 500 MG VIAL IM ONE (03:15)
[2022-07-31 06:30] LABS: Appearance,Urine Clear (Clear); Bilirubin,Urine Negative (Negative); Blood,Urine Negative (Negative); Color,Urine Yellow; Glucose,Urine (UA) Negative (Negative); Ketones,Urine Negative (Negative); Leukocyte Esterase,Urine Negative (Negative); Nitrite,Urine Negative (Negative); Protein,Urine Negative (Negative); Specific Gravity,Urine 1.015 (1.001-1.035); Urobilinogen,Urine <2.0 mg/dL (<2.0)
--- NOTE | 2022-07-31 07:55 | P.GSCN ---
History of Present Illness Consult date: 07/31/22 History of present illness: 87 yo male admitted with abdominal and testicle pain. He was in the hospital a week ago with the same issue. He had a normal ua. He was found to have a leukocytosis, thrombocytosis that was worrisome for a bone marrow disorder. Yesterday he had a normal scrotal us and ct scan of the abdomen and pelvis. His urinalysis is clear. States that his pain has been 48 hours. He is never had pain like this before. He has urinary frequency and urgency. He denies fever or chills. Review of Systems All systems: negative - Constitutional Denies fever, Denies weight loss - EENT Eyes: denies blurred vision Ears, nose, mouth and throat: Denies dysphagia - Cardiovascular Denies chest pain, Denies shortness of breath - Respiratory Denies cough, Denies 7 - Gastrointestinal Reports as per HPI - Genitourinary Denies dysuria, Denies hematuria - Integumentary Denies rash, Denies unusual bruising - Neurological Denies headaches, Denies syncope - Hematologic/Lymphatic Denies easy bleeding, Denies easy bruising Past Medical History Past Medical History: Coronary Artery Disease (CAD), Hyperlipidemia, Hypertension History of Any Multi-Drug Resistant Organisms: None Reported Past Surgical History: Coronary Bypass/CABG Past Anesthesia/Blood Transfusion Reactions: No Reported Reaction Past Psychological History: Anxiety Smoking Status: Former smoker Past Alcohol Use History: Occasional Past Drug Use History: None Reported Medications and Allergies Home Medications Medication Instructions Recorded Confirmed Type Metoprolol Tartrate [Lopressor] 50 mg PO BID 06/01/15 07/30/22 History diazePAM [Valium] 5 mg PO BID PRN 06/01/15 07/30/22 History hydroCHLOROthiazide [Hydrodiuril] 25 mg PO DAILY 06/01/15 07/30/22 History allopurinoL [Zyloprim] 100 mg PO DAILY 10/02/19 07/30/22 History Pravastatin Sodium [Pravachol] 40 mg PO HS 07/18/22 07/30/22 History Aspirin 81 mg PO DAILY #30 tab 07/22/22 07/30/22 Rx Famotidine [Pepcid] 20 mg PO HS #30 tab 07/22/22 07/30/22 Rx Allergies Allergy/AdvReac Type Severity Reaction Status Date / Time Iodinated Contrast Media Allergy Anaphylaxis Verified 07/30/22 15:30 Surgical - Exam Vital Signs Temp Pulse Resp BP Pulse Ox 98.9 F 83 18 135/70 99 07/30/22 12:52 07/30/22 12:52 07/30/22 12:52 07/30/22 12:52 07/30/22 12:52 - General moderate distress - ENT no hearing loss - Respiratory normal expansion, normal respiratory effort - Cardiovascular Rhythm: regular - Abdomen Abdomen: soft, non tender - Genitourinary The right testicle is normal. He is very tender to touch and quite anxious. The left testicle and epididymis are very indurated and extremely tender. It is not consistent with the ultrasound. With a clear urine and the question is whether this is an infection or perhaps an infarct. He has been on antibiotic. Results - Labs 07/30/22 14:05 07/30/22 14:05 Abnormal Lab Results - Last 24 Hours (Table) 07/30/22 07/30/22 Range/Units 14:05 14:05 WBC 20.1 H (3.8-10.6) k/uL RBC 2.94 L (4.30-5.90) m/uL Hgb 8.8 L (13.0-17.5) gm/dL Hct 28.1 L (39.0-53.0) % Plt Count 1116 H* (150-450) k/uL Neutrophils # 17.9 H (1.3-7.7) k/uL Lymphocytes # 0.9 L (1.0-4.8) k/uL Chloride 96 L (98-107) mmol/L BUN 50 H (9-20) mg/dL Creatinine 1.50 H (0.66-1.25) mg/dL Glucose 128 H (74-99) mg/dL Alkaline Phosphatase 214 H (38-126) U/L Total Protein 5.8 L (6.3-8.2) g/dL Albumin 2.7 L (3.5-5.0) g/dL Diabetes panel 07/30/22 Range/Units 14:05 Sodium 138 (137-145) mmol/L Potassium 3.8 (3.5-5.1) mmol/L Chloride 96 L (98-107) mmol/L Carbon Dioxide 30 (22-30) mmol/L BUN 50 H (9-20) mg/dL Creatinine 1.50 H (0.66-1.25) mg/dL Glucose 128 H (74-99) mg/dL Calcium 9.1 (8.4-10.2) mg/dL AST 23 (17-59) U/L ALT 24 (4-49) U/L Alkaline Phosphatase 214 H (38-126) U/L Total Protein 5.8 L (6.3-8.2) g/dL Albumin 2.7 L (3.5-5.0) g/dL Calcium panel 07/30/22 Range/Units 14:05 Calcium 9.1 (8.4-10.2) mg/dL Albumin 2.7 L (3.5-5.0) g/dL Pituitary panel 07/30/22 Range/Units 14:05 Sodium 138 (137-145) mmol/L Potassium 3.8 (3.5-5.1) mmol/L Chloride 96 L (98-107) mmol/L Carbon Dioxide 30 (22-30) mmol/L BUN 50 H (9-20) mg/dL Creatinine 1.50 H (0.66-1.25) mg/dL Glucose 128 H (74-99) mg/dL Calcium 9.1 (8.4-10.2) mg/dL Adrenal panel 07/30/22 Range/Units 14:05 Sodium 138 (137-145) mmol/L Potassium 3.8 (3.5-5.1) mmol/L Chloride 96 L (98-107) mmol/L Carbon Dioxide 30 (22-30) mmol/L BUN 50 H (9-20) mg/dL Creatinine 1.50 H (0.66-1.25) mg/dL Glucose 128 H (74-99) mg/dL Calcium 9.1 (8.4-10.2) mg/dL Total Bilirubin 0.6 (0.2-1.3) mg/dL AST 23 (17-59) U/L ALT 24 (4-49) U/L Alkaline Phosphatase 214 H (38-126) U/L Total Protein 5.8 L (6.3-8.2) g/dL Albumin 2.7 L (3.5-5.0) g/dL - Imaging CT scan - abdomen: report reviewed, image reviewed CT scan - pelvis: report reviewed, image reviewed Additional studies: us of the scrotum Assessment and Plan Assessment: Impression: Left testicular pain and induration indeterminate etiology infectious versus infarct Recommendations: The patient is on antibiotics. He may have some sort of marrow dysfunction which always makes me wonder if there could be an infarct to the testicle related to the thrombocytosis. I will continue to follow with you.
[2022-07-31] MEDS: METOPROLOL TARTRATE 50 MG TAB PO SCH ×2 (08:09→20:27)
[2022-07-31] MEDS: hydroCHLOROthiazide 25 MG TAB PO SCH (08:09)
[2022-07-31] MEDS: ASPIRIN 81 MG PO SCH (08:09)
[2022-07-31] MEDS: allopurinoL 100 MG TAB PO SCH (08:09)
[2022-07-31] MEDS: HEPARIN SODIUM,PORCINE/PF 5,000 UNIT/0.5 ML SYRINGE SQ SCH ×3 (08:10→23:06)
[2022-07-31] MEDS: HYDROmorphone 0.5 MG/0.5 ML SYRINGE IVP PRN ×2 (09:29→20:27)
[2022-07-31 09:55] LABS: C Reactive Protein 24.4 mg/dL (0.00-0.80)
[2022-07-31] MEDS: HYDROcodone/APAP 5-325MG 1 EACH TAB PO PRN ×3 (12:50→23:06)
--- NOTE | 2022-07-31 13:56 | US ---
EXAMINATION TYPE: US scrotum with doppler. Grayscale and color Doppler Duplex imaging performed of idalia mcgee scrotum. DATE OF EXAM: 07/31/2022 COMPARISON: Scrotal ultrasound 07/30/2022, CT abdomen and pelvis 07/30/2022 CLINICAL INDICATION: Male, 87 years old with history of repeat US due to worsening scrotal pain; pain repeat again from yesterday per Doctor. EXAM MEASUREMENTS: TESTICLES: Right Testicle: 4.0 x 1.5 x 3.2 cm echogenic area seen 3 mm which is consistent with a scrotolith. Left Testicle: 2.8 x 2.0 x 2.8 cm EPIDIDYMIS HEAD: Right Epididymis: .8 x 1.0 x 1.0 cm Left Epididymis: .7 x .7 cm Doppler performed to assess for testicular vascularity; good bilateral color flow and waveforms are s een. There is no evidence of testicular torsion. Presence of hydroceles: No Decreased flow on the left compared to the right testicle. IMPRESSION: 1. No evidence for testicular mass. 2. Color flow present within both testicles with slightly decreased appearance in the left testicle. Cannot entirely exclude torsion/detorsion however is appropriate arterial and venous flow at this mom ent in the left testicle.
--- NOTE | 2022-07-31 14:11 | P.CONS ---
History of Present Illness - Reason for Consult Consult date: 07/31/22 thrombocytosis and luekocytosis Requesting physician: Bernard Buckley - Chief Complaint abdominal and testicular pain - History of Present Illness Patient is a 87-year-old male with PMH of hypertension, CAD, and dyslipidemia. We were consulted on 07/23/22 for thrombocytosis and leukocytosis. Patient was admitted for generalized weakness and diarrhea and was noted to have thrombocytosis and leukocytosis. Anemia and MP and workup were ordered at that time. Iron studies not consistent with SHANICE, vitamin B12 and folate normal. MPN workup still pending. Follow up in clinic with Dr. Karen Peralta is scheduled for 08/06. Patient reports over the last 2 days he's been experiencing pain and swelling of left testicle and lower abdominal pain. He also reports urinary frequency. Denies dysuria, fever and chills. Patient also reports approximately 1-2 weeks ago he was experiencing dark colored stools. Last colonoscopy was approximately 2-[address] Jang which was negative per patient. He denies headache and visual disturbances. Denies nausea and vomiting. Denies any current episodes of bleeding. Denies cough, chest pain, shortness of breath. Patient denies night sweats and unintentional weight loss. Denies early satiety. Hemoglobin 8.8, WBC 20.1, platelets 1116. Urinalysis negative for nitrite or leukocyte esterase. Scrotal ultrasound revealed symmetric blood flow bilaterally. CT abdomen pelvis without contrast showed no acute process. Review of Systems 10 point ROS is negative except as stated in the HPI Past Medical History Past Medical History: Coronary Artery Disease (CAD), Hyperlipidemia, Hypertension History of Any Multi-Drug Resistant Organisms: None Reported Past Surgical History: Coronary Bypass/CABG Past Anesthesia/Blood Transfusion Reactions: No Reported Reaction Past Psychological History: Anxiety Smoking Status: Former smoker Past Alcohol Use History: Occasional Past Drug Use History: None Reported Medications and Allergies Home Medications Medication Instructions Recorded Confirmed Type Metoprolol Tartrate [Lopressor] 50 mg PO BID 06/01/15 07/30/22 History diazePAM [Valium] 5 mg PO BID PRN 06/01/15 07/30/22 History hydroCHLOROthiazide [Hydrodiuril] 25 mg PO DAILY 06/01/15 07/30/22 History allopurinoL [Zyloprim] 100 mg PO DAILY 10/02/19 07/30/22 History Pravastatin Sodium [Pravachol] 40 mg PO HS 07/18/22 07/30/22 History Aspirin 81 mg PO DAILY #30 tab 07/22/22 07/30/22 Rx Famotidine [Pepcid] 20 mg PO HS #30 tab 07/22/22 07/30/22 Rx Allergies Allergy/AdvReac Type Severity Reaction Status Date / Time Iodinated Contrast Media Allergy Anaphylaxis Verified 07/30/22 15:30 Physical Exam Vitals: Vital Signs Temp Pulse Pulse Pulse Resp BP BP 07/31/22 07:24 98.6 F 100 17 105/53 07/31/22 02:04 97.6 F 112 H 18 129/66 07/30/22 21:33 97.8 F 91 18 138/70 07/30/22 21:00 79 16 108/49 07/30/22 12:52 98.9 F 83 18 135/70 Pulse Ox 07/31/22 07:24 96 07/31/22 02:04 98 07/30/22 21:33 95 07/30/22 21:00 98 07/30/22 12:52 99 Intake and Output 07/30/22 07/31/22 07/31/22 22:59 06:59 14:59 Intake Total 120 Output Total 200 Balance -80 Intake: Oral 120 Output: Urine 200 Other: # Voids 1 2 Weight 70.76 kg - Constitutional General appearance: average body habitus, no acute distress - EENT Eyes: anicteric sclerae, EOMI ENT: hearing grossly normal - Respiratory Respiratory: bilateral: CTA - Cardiovascular Rhythm: regular Heart sounds: normal: S1, S2 Abnormal Heart Sounds: no systolic murmur, no diastolic murmur, no rub, no S3 Gallop, no S4 Gallop, no click, no other - Gastrointestinal General gastrointestinal: no distended, soft, no tenderness - Genitourinary Left testicle is higher compared to the right. Appears to be larger in size. Significant tenderness involving the superior and medial aspect of left testicle - Integumentary Integumentary: pale - Neurologic Neurologic: CNII-XII intact - Musculoskeletal Musculoskeletal: strength equal bilaterally - Psychiatric Psychiatric: A&O x's 3, appropriate affect, intact judgment & insight Results CBC & Chem 7: 07/30/22 14:05 07/30/22 14:05 Labs: Abnormal Lab Results - Last 24 Hours (Table) 07/30/22 07/30/22 07/31/22 Range/Units 14:05 14:05 05:49 WBC 20.1 H (3.8-10.6) k/uL RBC 2.94 L (4.30-5.90) m/uL Hgb 8.8 L (13.0-17.5) gm/dL Hct 28.1 L (39.0-53.0) % Plt Count 1116 H* (150-450) k/uL Neutrophils # 17.9 H (1.3-7.7) k/uL Lymphocytes # 0.9 L (1.0-4.8) k/uL Chloride 96 L (98-107) mmol/L BUN 50 H (9-20) mg/dL Creatinine 1.50 H (0.66-1.25) mg/dL Glucose 128 H (74-99) mg/dL Ferritin 1421.0 H (22.0-322.0) ng/mL Alkaline Phosphatase 214 H (38-126) U/L C-Reactive Protein 24.40 H (0.00-0.80) mg/dL Total Protein 5.8 L (6.3-8.2) g/dL Albumin 2.7 L (3.5-5.0) g/dL Comments: scrotal US reviewed CT scan - abdomen: report reviewed CT scan - pelvis: report reviewed Assessment and Plan (1) Leukocytosis Current Visit: Yes Status: Acute Priority: Medium Code(s): D72.829 - ELEVATED WHITE BLOOD CELL COUNT, UNSPECIFIED SNOMED Code(s): 296178587 (2) Thrombocytosis Current Visit: Yes Status: Acute Priority: Medium Code(s): D75.839 - THROMBOCYTOSIS, UNSPECIFIED SNOMED Code(s): 9609642 (3) Anemia Current Visit: Yes Status: Acute Priority: Medium Code(s): D64.9 - ANEMIA, UNSPECIFIED SNOMED Code(s): 898765775 Plan: Thrombocytosis/Leukocytosis: -Thrombocytosis/Leukocytosis present on previous admission on 07/23/22. Today WBC 20.1 with elevation in neutrophils, platelets 1116 -Thrombocytosis and leukocytosis could be reactive to acute condition -Anemia workup from admission on 5/4 revealed iron 13, iron sat 8%, and ferritin 1224. Repeat ferritin 1421. Vitamin B12 and folate normal. MPN workup still pending -Follow up in clinic with Dr. Karen Peralta is scheduled for 08/06 for further evaluation/workup pending MPN workup. Anemia: -Recent anemia workup negative -Reports recent dark colored stool, last colonoscopy 2-[address] Nair, normal per pt -CBC consistent with normocytic normochromic anemia -Surgery consulted for evaluation for colonoscopy/EGD Add: Given symptoms, and physical exam findings, reactive phenomenon due to testicular inflammation is likely the primary cause, or at least a major component. Continue management per IM, and urology. MPN workup pending
--- NOTE | 2022-07-31 14:22 | P.PN ---
Progress Note - Text Progress Note Date: 07/31/22 The patient had a repeat ultrasound for the abnormal left testicle examination to rule out torsion or infarct. Torsion would be extremely rare however. There was decent blood flow to both testicles. There is no other obvious abnormality. Therefore there is no torsion. Whether it a small infarct would be indeterminate based on that study however. Regardless he is more comfortable. Nothing surgical needs to be done at this point in time.
--- NOTE | 2022-07-31 19:04 | P.PN ---
Subjective Progress Note Date: 07/31/22 Hospital course: Patient is a very pleasant 87-year-old male with a past medical history of CAD status post CABG, hypertension, hyperlipidemia, GERD, and gout. He presented to the emergency department with a chief complaint of testicular pain. Patient reported severe scrotal pain and urinary frequency with dysuria beginning approximately one hour prior to arrival and aggressively worsening. He underwent full evaluation. Labs completed and reviewed. CBC revealing severe leukocytosis with WBC count of 20.1, normocytic anemia with hemoglobin of 8.8, severe thrombocytosis with platelet count of 1116. BMP revealing hypochloremia with chloride of 96 and an acute kidney injury with BUN of 50, creatinine 1.50, and GFR of 41 with baseline creatinine levels of 1. Lactic acid was 1.6. Liver profile revealing elevated alkaline phosphatase of 214. Urinalysis was negative for blood, protein, ketones, or infection. CT abdomen and pelvis was completed in radiology report reviewed showing prostamegaly and coronary calcifications with enlarged ascending aorta measuring up to 4.7 cm stating no acute process. Scrotal ultrasound completed showing satisfactory blood flow to bilateral testicles. Patient was admitted under services of consultation to urology and hematology. Urology evaluated and reviewed documentation in chart urology concerning left testicular pain and induration of indeterminate etiology concerning for infection versus infarct recommending continue current antibiotics and will continue to follow along. Physical exam: Vital signs reviewed and stable. General: Nontoxic, no distress and appears stated age. Derm: Skin warm and dry, normal coloration for ethnicity. Head: Atraumatic, normocephalic and symmetric. Eyes: EOMs intact, no lid lag, and anicteric sclera Mouth: no lip lesions, mucus membranes moist Cardiovascular: regular rate and rhythm with normal S1S2, no murmur, positive posterior tibial pulses bilaterally, and cap refill < 2 seconds. Lungs: Respirations even, regular, and unlabored on room air. Lungs CTA bilaterally, no rhonchi, no rales, no wheezing, and no accessory muscle usage. GI/: soft, nontender to palpation, no guarding, no appreciable organomegaly. Left testicle elevated and slightly red, extremely tender to touch. Right testicle appears normal however also reports tenderness to touch. Ext: ROM intact. No gross muscle atrophy, no edema, no contractures Neuro: Speech clear, face symmetrical and CN II-XII grossly intact with no noted focal neuro deficits Psych: Alert and oriented to person, place, time, and situation. Appropriate and pleasant affect. Assessment and Plan of Care: Left testicular pain, rule out epididymitis versus prostatitis versus scrotal infarct Severe thrombocytosis Severe leukocytosis Acute kidney injury -Labs completed and reviewed. CBC revealing severe leukocytosis with WBC count of 20.1, normocytic anemia with hemoglobin of 8.8, severe thrombocytosis with platelet count of 1116. BMP revealing hypochloremia with chloride of 96 and an acute kidney injury with BUN of 50, creatinine 1.50, and GFR of 41 with baseline creatinine levels of 1. Lactic acid was 1.6. Liver profile revealing elevated alkaline phosphatase of 214. -Urinalysis was negative for blood, protein, ketones, or infection. -CT abdomen and pelvis was completed in radiology report reviewed showing prostamegaly and coronary calcifications with enlarged ascending aorta measuring up to 4.7 cm stating no acute process. -Scrotal ultrasound completed showing satisfactory blood flow to bilateral testicles. -Patient was admitted under services of consultation to urology and hematology. -Urology evaluated and reviewed documentation in chart urology concerning left testicular pain and induration of indeterminate etiology concerning for infection versus infarct recommending continue current antibiotics and will continue to follow along. -Patient started on aspirin and hydroxyurea for severe thrombocytosis. Awaiting further recommendations from hematology. -Continue gentle IV fluid infusion with 0.9% normal saline at 50 mL's per hour and repeat morning BMP to follow up on renal function to monitor for resolution of acute kidney injury. -Repeat morning and CBC to follow-up on leukocytosis and thrombocytosis. -Patient does report worsening pain and left testicle, order placed for repeat scrotal ultrasound. -Consult also placed infectious disease at this time History of CAD status post CABG Hypertension Hyperlipidemia -Continue home cardiac medication regimen with aspirin, hydrochlorothiazide, metoprolol, and pravastatin. CODE STATUS: Full code DVT prophylaxis: Heparin Discussed with: Patient and RN Anticipated discharge date: Clinical course to determine Anticipated discharge place: Home Patient was seen independently by Nurse Pracitioner. This document was prepared using [employer] dictation software. Please allow for errors in collar separator, while rare they do occur. Mayur Crain NP rendered care for this patient independently, reviewed the findings and plan as documented in the note above. I did not physically speak with or examine the patient on this date. Objective - Vital Signs Vital signs: Vital Signs Temp 98.6 F 07/31/22 07:24 Pulse 100 07/31/22 07:24 Resp 17 07/31/22 07:24 BP 105/53 07/31/22 07:24 Pulse Ox 96 07/31/22 07:24 FiO2 Intake & Output 07/30/22 07/31/22 07/31/22 18:59 06:59 18:59 Intake Total 120 Output Total 200 Balance -80 Weight 70.76 kg 70.76 kg Intake: Oral 120 Output: Urine 200 Other: # Voids 2 - Labs CBC & Chem 7: 08/03/22 04:55 08/03/22 04:55 Labs: Abnormal Lab Results - Last 24 Hours (Table) 07/30/22 07/30/22 Range/Units 14:05 14:05 WBC 20.1 H (3.8-10.6) k/uL RBC 2.94 L (4.30-5.90) m/uL Hgb 8.8 L (13.0-17.5) gm/dL Hct 28.1 L (39.0-53.0) % Plt Count 1116 H* (150-450) k/uL Neutrophils # 17.9 H (1.3-7.7) k/uL Lymphocytes # 0.9 L (1.0-4.8) k/uL Chloride 96 L (98-107) mmol/L BUN 50 H (9-20) mg/dL Creatinine 1.50 H (0.66-1.25) mg/dL Glucose 128 H (74-99) mg/dL Alkaline Phosphatase 214 H (38-126) U/L Total Protein 5.8 L (6.3-8.2) g/dL Albumin 2.7 L (3.5-5.0) g/dL
[2022-07-31] MEDS: PRAVASTATIN SODIUM 40 MG TAB PO SCH (20:27)
[2022-07-31] MEDS: FAMOTIDINE 20 MG TAB PO SCH (20:27)
--- NOTE | 2022-07-31 22:14 | P.CONS ---
History of Present Illness - Reason for Consult Consult date: 07/31/22 - History of Present Illness Patient is a 87-year-old male with a past medical history significant for coronary disease hyperlipidemia hypertension presenting to the ER for evaluation of lower abdominal and scrotal pain patient's symptom has been going on for a day before presentation to hospital the patient denies having any history of any trauma describes the pain to be sharp almost 10 out of 10 in severity with some relief with the pain medication patient has been having some urinary frequency but no dysuria or any blood in the stool patient on presentation to the hospital was afebrile and no fever has been recorded subsequently he did have a white count of 20,000 elevated platelet count elevated BUN/creatinine liver enzymes are normal urine was negative patient did have a CT abdominal pelvis no acute process he did have a scrotal ultrasound symmetric blood flow bilaterally left epididymis not visualized patient was started on Levaquin with concern for possible testicular infection infectious disease was consulted for further management of antibiotic therapy Past Medical History Past Medical History: Coronary Artery Disease (CAD), Hyperlipidemia, Hyper tension History of Any Multi-Drug Resistant Organisms: None Reported Past Surgical History: Coronary Bypass/CABG Past Anesthesia/Blood Transfusion Reactions: No Reported Reaction Past Psychological History: Anxiety Smoking Status: Former smoker Past Alcohol Use History: Occasional Past Drug Use History: None Reported Medications and Allergies Home Medications Medication Instructions Recorded Confirmed Type Metoprolol Tartrate [Lopressor] 50 mg PO BID 06/01/15 07/30/22 History diazePAM [Valium] 5 mg PO BID PRN 06/01/15 07/30/22 History hydroCHLOROthiazide [Hydrodiuril] 25 mg PO DAILY 06/01/15 07/30/22 History allopurinoL [Zyloprim] 100 mg PO DAILY 10/02/19 07/30/22 History Pravastatin Sodium [Pravachol] 40 mg PO HS 07/18/22 07/30/22 History Aspirin 81 mg PO DAILY #30 tab 07/22/22 07/30/22 Rx Famotidine [Pepcid] 20 mg PO HS #30 tab 07/22/22 07/30/22 Rx Allergies Allergy/AdvReac Type Severity Reaction Status Date / Time Iodinated Contrast Media Allergy Anaphylaxis Verified 07/30/22 15:30 Physical Exam Vitals: Vital Signs Temp Pulse Pulse Pulse Resp BP BP 07/31/22 07:24 98.6 F 100 17 105/53 05/12/23 02:04 97.6 F 112 H 18 129/66 07/30/22 21:33 97.8 F 91 18 138/70 07/30/22 21:00 79 16 108/49 07/30/22 12:52 98.9 F 83 18 135/70 Pulse Ox 07/31/22 07:24 96 07/31/22 02:04 98 07/30/22 21:33 95 07/30/22 21:00 98 07/30/22 12:52 99 Intake and Output 07/30/22 07/31/22 07/31/22 22:59 06:59 14:59 Intake Total 120 Output Total 200 Balance -80 Intake: Oral 120 Output: Urine 200 Other: # Voids 1 2 Weight 70.76 kg Results CBC & Chem 7: 07/30/22 14:05 07/30/22 14:05 Labs: Abnormal Lab Results - Last 24 Hours (Table) 07/30/22 07/30/22 07/31/22 Range/Units 14:05 14:05 05:49 WBC 20.1 H (3.8-10.6) k/uL RBC 2.94 L (4.30-5.90) m/uL Hgb 8.8 L (13.0-17.5) gm/dL Hct 28.1 L (39.0-53.0) % Plt Count 1116 H* (150-450) k/uL Neutrophils # 17.9 H (1.3-7.7) k/uL Lymphocytes # 0.9 L (1.0-4.8) k/uL Chloride 96 L (98-107) mmol/L BUN 50 H (9-20) mg/dL Creatinine 1.50 H (0.66-1.25) mg/dL Glucose 128 H (74-99) mg/dL Ferritin 1421.0 H (22.0-322.0) ng/mL Alkaline Phosphatase 214 H (38-126) U/L C-Reactive Protein 24.40 H (0.00-0.80) mg/dL Total Protein 5.8 L (6.3-8.2) g/dL Albumin 2.7 L (3.5-5.0) g/dL Assessment and Plan Plan: 1patient to the hospital with left testicular pain and swelling in this patient with no fever however he did have elevated white count though some swelling was noticed to the left coronary but no redness however has been tender to touch UA has been negative clinic suspicion is low for epididymoorchitis but not entirely excluded and will need to cover for the enteric gram-negative with the likely pathogen 2-discontinue Levaquin 3-start the patient on Rocephin 2 g daily 4-check inflammatory markers We will follow on clinical condition and cultures to further adjust medication if needed Thank you for this consultation we will follow the patient along with you Time with Patient: Greater than 30
[2022-08-01] MEDS: HYDROmorphone 0.5 MG/0.5 ML SYRINGE IVP PRN ×3 (08:18→23:55)
[2022-08-01] MEDS: HYDROXYUREA 500 MG CAP PO SCH (08:58)
[2022-08-01] MEDS: hydroCHLOROthiazide 25 MG TAB PO SCH (08:58)
[2022-08-01] MEDS: METOPROLOL TARTRATE 50 MG TAB PO SCH ×2 (08:58→20:23)
[2022-08-01] MEDS: ASPIRIN 81 MG PO SCH (08:58)
[2022-08-01] MEDS: HEPARIN SODIUM,PORCINE/PF 5,000 UNIT/0.5 ML SYRINGE SQ SCH ×3 (08:58→23:55)
[2022-08-01] MEDS: allopurinoL 100 MG TAB PO SCH (08:58)
--- NOTE | 2022-08-01 09:20 | P.GSCN ---
History of Present Illness Consult date: 08/01/22 Reason for Consult: Anemia History of present illness: This is an 87-year-old male who was admitted hospital for abdominal and testicular pain. Patient's noted be anemic with 8.8. Patient states that he has had colonoscopy performed 5 years ago. Today denies any significant abdominal pain. Past Medical History Past Medical History: Coronary Artery Disease (CAD), Hyperlipidemia, Hypertension History of Any Multi-Drug Resistant Organisms: None Reported Past Surgical History: Coronary Bypass/CABG Past Anesthesia/Blood Transfusion Reactions: No Reported Reaction Past Psychological History: Anxiety Smoking Status: Former smoker Past Alcohol Use History: Occasional Past Drug Use History: None Reported Medications and Allergies Home Medications Medication Instructions Recorded Confirmed Type Metoprolol Tartrate [Lopressor] 50 mg PO BID 06/01/15 07/30/22 History diazePAM [Valium] 5 mg PO BID PRN 06/01/15 07/30/22 History hydroCHLOROthiazide [Hydrodiuril] 25 mg PO DAILY 06/01/15 07/30/22 History allopurinoL [Zyloprim] 100 mg PO DAILY 10/02/19 07/30/22 History Pravastatin Sodium [Pravachol] 40 mg PO HS 07/18/22 07/30/22 History Aspirin 81 mg PO DAILY #30 tab 07/22/22 07/30/22 Rx Famotidine [Pepcid] 20 mg PO HS #30 tab 07/22/22 07/30/22 Rx Allergies Allergy/AdvReac Type Severity Reaction Status Date / Time Iodinated Contrast Media Allergy Anaphylaxis Verified 07/30/22 15:30 Surgical - Exam Vital Signs Temp Pulse Resp BP Pulse Ox 98.9 F 83 18 135/70 99 07/30/22 12:52 07/30/22 12:52 07/30/22 12:52 07/30/22 12:52 07/30/22 12:52 - General well developed, no distress - Eyes PERRL - ENT normal pinna - Neck no masses - Respiratory normal expansion - Cardiovascular Rhythm: regular - Abdomen Abdomen: soft, non tender Results - Labs 07/30/22 14:05 07/30/22 14:05 Abnormal Lab Results - Last 24 Hours (Table) 07/31/22 07/31/22 Range/Units 05:49 05:49 ESR 48 H (0-20) mm/Hr Ferritin 1421.0 H (22.0-322.0) ng/mL C-Reactive Protein 24.40 H (0.00-0.80) mg/dL Assessment and Plan Assessment: Anemia. Patient will undergo upper and lower endoscopy on Wednesday if stable.
[2022-08-01 09:58] LABS: African American GFR (CKD) 58.8 (60.0-200.0); Albumin 2.4 g/dL (3.8-4.9); Albumin/Globulin Ratio 0.84 (1.60-3.17); Anion Gap 13.4 mmol/L (10.00-18.00); BUN/Creat Ratio 27.52 Ratio (12.00-20.00); Blood Urea Nitrogen 34.4 mg/dL (9.0-27.0); C Reactive Protein 22.9 mg/dL (0.00-0.80); Calcium 9.1 mg/dL (8.7-10.3); Carbon Dioxide 27.5 mmol/L (20.0-27.5); Globulin 2.9 g/dL (1.6-3.3); Magnesium 1.6 mg/dL (1.5-2.4); Non-African American GFR(CKD) 50.7 (60.0-200.0); Potassium 3.6 mmol/L (3.5-5.5); Total Bilirubin 0.2 mg/dL (0.30-1.20); Total Protein 5.3 g/dL (6.2-8.2)
[2022-08-01 10:07] LABS: Erythrocyte Sedimentation Rate 63 mm/Hr (0-20)
[2022-08-01 12:15] LABS: Basophils # (A) 0.06 X 10*3/uL (0.00-0.10); Basophils % (A) 0.2 %; Eosinophils # (A) 1.56 X 10*3/uL (0.04-0.35); Eosinophils % (A) 6.4 %; HCT 24.4 % (39.6-50.0); HGB 7.6 g/dL (13.0-17.0); Lymphocytes # (A) 1.28 X 10*3/uL (0.90-5.00); Lymphocytes % (A) 5.2 %; MCH 30.3 pg (27.0-32.0); MCHC 31.1 g/dL (32.0-37.0); MCV 97.2 fL (80.0-97.0); Mean Platelet Volume 9.5 fL (9.5-12.2); Monocytes # (A) 1.36 X 10*3/uL (0.20-1.00); Monocytes % (A) 5.6 %; NRBC Per 100 WBC 0 /100 WBCS (0.0-0.0); Neutrophils # (A) 19.94 X 10*3/uL (1.80-7.70); Neutrophils % (A) 81.6 %; Platelet Count 1171 X 10*3/uL (140-440); RBC 2.51 X 10*6/uL (4.40-5.60); RDW 14.8 % (11.5-14.5); WBC 24.45 X 10*3/uL (4.50-10.00)
--- NOTE | 2022-08-01 12:16 | P.PN ---
Subjective Progress Note Date: 08/01/22 In the hospital with testicular pain. He had a tender left testicle. I thought there might be either torsion or an infarct. He had a repeat ultrasound showing good flow to the testicle. The tenderness is less today. Objective - Vital Signs Vital signs: Vital Signs Temp 98.9 F 08/01/22 07:07 Pulse 94 08/01/22 07:07 Resp 17 08/01/22 07:07 BP 133/75 08/01/22 07:07 Pulse Ox 97 08/01/22 07:07 FiO2 Intake & Output 07/31/22 08/01/22 08/01/22 18:59 06:59 18:59 Intake Total 118 Output Total 300 Balance -300 118 Intake: Oral 118 Output: Urine 300 Other: Voiding Method Toilet Urinal Urinal # Voids 3 - Genitourinary Genitourinary Comment(s): Decreased tenderness and swelling of the left testicle - Labs CBC & Chem 7: 07/30/22 14:05 08/01/22 07:03 Labs: Abnormal Lab Results - Last 24 Hours (Table) 08/01/22 08/01/22 Range/Units 07:03 07:03 ESR 63 H (0-20) mm/Hr BUN 34.4 H (9.0-27.0) mg/dL Est GFR (CKD-EPI)AfAm 58.8 L (60.0-200.0) Est GFR (CKD-EPI)NonAf 50.7 L (60.0-200.0) BUN/Creatinine Ratio 27.52 H (12.00-20.00) Ratio Glucose 117 H (70-110) mg/dL Ferritin 1258.0 H (22.0-322.0) ng/mL Total Bilirubin 0.20 L (0.30-1.20) mg/dL AST 13 L (14-35) U/L Alkaline Phosphatase 163 H (41-126) U/L C-Reactive Protein 22.90 H (0.00-0.80) mg/dL Total Protein 5.3 L (6.2-8.2) g/dL Albumin 2.4 L (3.8-4.9) g/dL Albumin/Globulin Ratio 0.84 L (1.60-3.17) g/dL Assessment and Plan Assessment: Impression: Orchialgia of indeterminate etiology. Whether this is infectious or not is indeterminate. The urine was clear. He does seem to be better today. Recommendations: Nothing further urologic needs to be done at this point in time.
[2022-08-01] MEDS: HYDROcodone/APAP 5-325MG 1 EACH TAB PO PRN ×2 (13:29→22:03)
--- NOTE | 2022-08-01 18:21 | P.PN ---
Subjective Progress Note Date: 08/01/22 Hospital course: Patient is a very pleasant 87-year-old male with a past medical history of CAD status post CABG, hypertension, hyperlipidemia, GERD, and gout. He presented to the emergency department with a chief complaint of testicular pain. Patient reported severe scrotal pain and urinary frequency with dysuria beginning approximately one hour prior to arrival and aggressively worsening. He underwent full evaluation. Labs completed and reviewed. CBC revealing severe leukocytosis with WBC count of 20.1, normocytic anemia with hemoglobin of 8.8, severe thrombocytosis with platelet count of 1116. BMP revealing hypochloremia with chloride of 96 and an acute kidney injury with BUN of 50, creatinine 1.50, and GFR of 41 with baseline creatinine levels of 1. Lactic acid was 1.6. Liver profile revealing elevated alkaline phosphatase of 214. Urinalysis was negative for blood, protein, ketones, or infection. CT abdomen and pelvis was completed in radiology report reviewed showing prostamegaly and coronary calcifications with enlarged ascending aorta measuring up to 4.7 cm stating no acute process. Scrotal ultrasound completed showing satisfactory blood flow to bilateral testicles. Patient was admitted under services of consultation to urology and hematology. Urology evaluated and reviewed documentation in chart urology concerning left testicular pain and induration of indeterminate etiology concerning for infection versus infarct recommending continue current antibiotics and will continue to follow along. Infectious disease also fol lowing changing antibiotics from Levaquin to Rocephin 2 g daily. Physical exam: Vital signs reviewed and stable. General: Nontoxic, no distress and appears stated age. Derm: Skin warm and dry, normal coloration for ethnicity. Head: Atraumatic, normocephalic and symmetric. Eyes: EOMs intact, no lid lag, and anicteric sclera Mouth: no lip lesions, mucus membranes moist Cardiovascular: regular rate and rhythm with normal S1S2, no murmur, positive po sterior tibial pulses bilaterally, and cap refill < 2 seconds. Lungs: Respirations even, regular, and unlabored on room air. Lungs CTA bilaterally, no rhonchi, no rales, no wheezing, and no accessory muscle usage. GI/: soft, nontender to palpation, no guarding, no appreciable organomegaly. Left testicle elevated and remains tender to touch, but seems to have improved since yesterday. Right testicle appears normal with no tenderness reported. Ext: ROM intact. No gross muscle atrophy, no edema, no contractures Neuro: Speech clear, face symmetrical and CN II-XII grossly intact with no noted focal neuro deficits Psych: Alert and oriented to person, place, time, and situation. Appropriate and pleasant affect. Assessment and Plan of Care: Left testicular pain, orchitis of unclear origin rule out epididymitis versus prostatitis versus scrotal infarct Severe thrombocytosis, worsening Severe leukocytosis, worsening Acute kidney injury, improving Prostamegaly noted on CT Hypomagnesemia -Labs completed and reviewed. CBC showing worsening leukocytosis with WBC count of 24.4, hemoglobin of 7.6, and platelet count of 1171. ESR also worsening from 48 up to 63. BMP showing improvement of acute kidney injury with BUN of 34.4 and creatinine of 1.3. Magnesium was 1.6. -It is unclear if thrombocytosis and leukocytosis is reactive secondary to acute infection. -Urinalysis was negative for blood, protein, ketones, or infection. -CT abdomen and pelvis was completed in radiology report reviewed showing prostamegaly and coronary calcifications with enlarged ascending aorta measuring up to 4.7 cm stating no acute process. -Scrotal ultrasound completed on 07/30/22 showing satisfactory blood flow to bilateral testicles. Repeat scrotal ultrasound completed on 07/31/22 revealing again no evidence for testicular mass and color-flow present within both testicles with slightly decreased appearance on the left testicle, radiology report stating cannot entirely exclude torsion/detorsion however reports appropriate arterial and venous blood flow to bilateral testicles. -Urology following and reviewed documentation in chart, stating patient appears to be in improving but it is unclear if orchitis is infectious or other etiology but stating no further urologic needs to be done at this time. -Recommend patient continue hydroxyurea and aspirin for thrombocytosis and in further recommendations from hematology. -Patient has had improvement of acute kidney injury at this time we will continue gentle IV fluid infusion with 0.9% normal saline at 50 mL's per hour for another 24 hours and repeat morning BMP to follow up on renal function to continue to monitor for full resolution of acute kidney injury. -Repeat morning and CBC to follow-up on leukocytosis and thrombocytosis. -Hematology/oncology following and reviewed documentation in chart, they are recommending further workup for anemia and consulted general surgeon for anemia workup secondary to patient's reports of recent dark colored stools. -Gen. surgery following and discussed plan of care, planning to take patient for upper and lower endoscopy on Wednesday secondary to findings of anemia. -Hypomagnesemia with magnesium of 1.6 and order placed for magnesium sulfate 2 g IVPB History of CAD status post CABG Hypertension Hyperlipidemia -Continue home cardiac medication regimen with aspirin 81 mg daily, metoprolol 50 mg twice daily, and pravastatin 40 mg daily. CODE STATUS: Full code DVT prophylaxis: Heparin Discussed with: Patient, Gen. surgeon and RN Anticipated discharge date: Clinical course to determine Anticipated discharge place: Home Patient was seen independently by Nurse Pracitioner. This document was prepared using [employer] dictation software. Please allow for errors in security program manager, while rare they do occur. Mayur Crain NP rendered care for this patient independently, reviewed the findings and plan as documented in the note above. I did not physically speak with or examine the patient on this date. Objective - Vital Signs Vital signs: Vital Signs Temp 98.9 F 08/01/22 07:07 Pulse 94 08/01/22 07:07 Resp 17 08/01/22 07:07 BP 133/75 08/01/22 07:07 Pulse Ox 97 08/01/22 07:07 FiO2 Intake & Output 07/31/22 08/01/22 08/01/22 18:59 06:59 18:59 Intake Total 118 Output Total 300 Balance -300 118 Intake: Oral 118 Output: Urine 300 Other: Voiding Method Toilet Urinal Urinal # Voids 3 - Labs CBC & Chem 7: 08/03/22 04:55 08/03/22 04:55 Labs: Abnormal Lab Results - Last 24 Hours (Table) 07/31/22 07/31/22 Range/Units 05:49 05:49 ESR 48 H (0-20) mm/Hr Ferritin 1421.0 H (22.0-322.0) ng/mL C-Reactive Protein 24.40 H (0.00-0.80) mg/dL
[2022-08-01] MEDS: MAGNESIUM SULFATE-D5W PMX 1 GM in DEXTROSE/WATER 1 100ML.BAG IVPB SCH ×2 (18:30→19:46)
[2022-08-01] MEDS: PRAVASTATIN SODIUM 40 MG TAB PO SCH (20:23)
[2022-08-01] MEDS: FAMOTIDINE 20 MG TAB PO SCH (20:23)
--- NOTE | 2022-08-01 22:47 | P.PN ---
Subjective Progress Note Date: 08/01/22 Principal diagnosis: Possible left scrotal cellulitis Patient is a 87-year-old male with a past medical history significant for coronary disease hyperlipidemia hypertension presenting to the ER for evaluation of lower abdominal and scrotal pain , question of possible scrotal cellulitis On today's evaluation that is 08/01/2022, the patient denies having any fever or any chills, patient denies having any chest pain or shortness of breath or cough left-sided scrotal pain and swelling has slightly decreased no diarrhea Objective - Vital Signs Vital signs: Vital Signs Temp 98.9 F 08/01/22 07:07 Pulse 94 08/01/22 07:07 Resp 17 08/01/22 07:07 BP 133/75 08/01/22 07:07 Pulse Ox 97 08/01/22 07:07 FiO2 Intake & Output 07/31/22 08/01/22 08/01/22 18:59 06:59 18:59 Intake Total 118 Output Total 300 300 Balance -300 -182 Intake: Oral 118 Output: Urine 300 300 Other: Voiding Method Toilet Urinal Urinal # Voids 3 - Exam GENERAL DESCRIPTION: An elderly male lying in bed in no distress RESPIRATORY SYSTEM: Unlabored breathing , decreased breath sounds at bases HEART: S1 S2 regular rate and rhythm , ABDOMEN: Soft , no tenderness : Left scrotal swelling has decreased EXTREMITIES: No edema feet - Labs CBC & Chem 7: 08/01/22 07:03 08/01/22 07:03 Labs: Abnormal Lab Results - Last 24 Hours (Table) 08/01/22 08/01/22 Range/Units 07:03 07:03 WBC 24.45 H (4.50-10.00) X 10*3/uL RBC 2.51 L (4.40-5.60) X 10*6/uL Hgb 7.6 L (13.0-17.0) g/dL Hct 24.4 L (39.6-50.0) % MCV 97.2 H (80.0-97.0) fL MCHC 31.1 L (32.0-37.0) g/dL RDW 14.8 H (11.5-14.5) % Plt Count 1171 H* (140-440) X 10*3/uL Plt Count Comment INCREASED A Immature Gran # 0.25 H (0.00-0.04) X 10*3/uL Neutrophils # 19.94 H (1.80-7.70) X 10*3/uL Monocytes # 1.36 H (0.20-1.00) X 10*3/uL Eosinophils # 1.56 H (0.04-0.35) X 10*3/uL ESR 63 H (0-20) mm/Hr BUN 34.4 H (9.0-27.0) mg/dL Est GFR (CKD-EPI)AfAm 58.8 L (60.0-200.0) Est GFR (CKD-EPI)NonAf 50.7 L (60.0-200.0) BUN/Creatinine Ratio 27.52 H (12.00-20.00) Ratio Glucose 117 H (70-110) mg/dL Ferritin 1258.0 H (22.0-322.0) ng/mL Total Bilirubin 0.20 L (0.30-1.20) mg/dL AST 13 L (14-35) U/L Alkaline Phosphatase 163 H (41-126) U/L C-Reactive Protein 22.90 H (0.00-0.80) mg/dL Total Protein 5.3 L (6.2-8.2) g/dL Albumin 2.4 L (3.8-4.9) g/dL Albumin/Globulin Ratio 0.84 L (1.60-3.17) g/dL Assessment and Plan (1) Cellulitis of scrotum Current Visit: Yes Status: Acute Code(s): N49.2 - INFLAMMATORY DISORDERS OF SCROTUM SNOMED Code(s): 51253980 Plan: 1patient to the hospital with left testicular pain and swelling in this patient with no fever however he did have elevated white count though some swelling was noticed to the left coronary but no redness however has been tender to touch UA has been negative clinic suspicion is low for epididymoorchitis but not entirely excluded and will need to cover for the enteric gram-negative with the likely pathogen 2-Patient seemed to show some clinical improvement and we will continue with Rocephin 2 g daily and monitor clinical course closely Time with Patient: Less than 30
[2022-08-02] MEDS: HYDROcodone/APAP 5-325MG 1 EACH TAB PO PRN ×3 (04:50→18:51)
[2022-08-02] MEDS: HYDROXYUREA 500 MG CAP PO SCH (08:36)
[2022-08-02] MEDS: METOPROLOL TARTRATE 50 MG TAB PO SCH ×2 (08:37→21:40)
[2022-08-02] MEDS: ASPIRIN 81 MG PO SCH (08:37)
[2022-08-02] MEDS: HEPARIN SODIUM,PORCINE/PF 5,000 UNIT/0.5 ML SYRINGE SQ SCH ×3 (08:37→23:22)
[2022-08-02] MEDS: allopurinoL 100 MG TAB PO SCH (08:37)
[2022-08-02 08:53] LABS: Erythrocyte Sedimentation Rate >140 mm/hr (0-15)
[2022-08-02 09:18] LABS: HCT 26.5 % (39.0-53.0); HGB 8.2 gm/dL (13.0-17.5); Hypochromasia Moderate; MCH 29.7 pg (25.0-35.0); MCV 95.9 fL (80.0-100.0); Mean Platelet Volume 7.8; RBC 2.76 m/uL (4.30-5.90); RDW 14.7 % (11.5-15.5); WBC 22.4 k/uL (3.8-10.6)
[2022-08-02 09:26] LABS: Platelet Count 1087 k/uL (150-450)
[2022-08-02 10:18] LABS: ALT 17 U/L (4-49); AST 23 U/L (17-59); African American GFR (CKD) 76 (>60 ml/min/1.73 sqM); Albumin 2.5 g/dL (3.5-5.0); Albumin/Globulin Ratio 0.8; Alkaline Phosphatase 187 U/L (38-126); Anion Gap 11 mmol/L; Blood Urea Nitrogen 36 mg/dL (9-20); Calcium 8.4 mg/dL (8.4-10.2); Carbon Dioxide 30 mmol/L (22-30); Chloride 96 mmol/L (98-107); Glucose 131 mg/dL (74-99); Magnesium 2.1 mg/dL (1.6-2.3); Non-African American GFR(CKD) 66 (>60 ml/min/1.73 sqM); Potassium 3.3 mmol/L (3.5-5.1); Sodium 137 mmol/L (137-145); Total Bilirubin 0.3 mg/dL (0.2-1.3); Total Protein 5.5 g/dL (6.3-8.2)
[2022-08-02 10:49] LABS: C Reactive Protein 24.8 mg/dL (<1.0)
--- NOTE | 2022-08-02 12:37 | P.PN ---
Progress Note - Text Progress Note Date: 08/02/22 The patient feels better today. He has less testicular pain today. On exam vital signs per still. Abdomen soft. It. Patient will undergo upper and lower endoscopy for anemia when medically stable.
--- NOTE | 2022-08-02 15:39 | P.PN ---
Subjective Progress Note Date: 08/02/22 Principal diagnosis: Possible left scrotal cellulitis Patient is a 87-year-old male with a past medical history significant for coronary disease hyperlipidemia hypertension presenting to the ER for evaluation of lower abdominal and scrotal pain , question of possible scrotal cellulitis On today's evaluation that is 08/02/2022, the patient remains to be afebrile, patient denies having any chest pain or shortness of breath or cough, the patient left-sided scrotal pain and swelling has decreased in intensity no nausea no vomiting no diarrhea Objective - Vital Signs Vital signs: Vital Signs Temp 97.9 F 08/02/22 13:56 Pulse 82 08/02/22 13:56 Resp 19 08/02/22 13:56 BP 120/68 08/02/22 13:56 Pulse Ox 97 08/02/22 13:56 FiO2 Intake & Output 08/01/22 08/02/22 08/02/22 18:59 06:59 18:59 Intake Total 1154 236 Output Total 300 425 Balance 854 -425 236 Intake: Oral 1154 236 Output: Urine 300 425 Other: Voiding Method Urinal Urinal Toilet - Exam GENERAL DESCRIPTION: An elderly male lying in bed in no distress RESPIRATORY SYSTEM: Unlabored breathing , decreased breath sounds at bases HEART: S1 S2 regular rate and rhythm , ABDOMEN: Soft , no tenderness : Left scrotal swelling has decreased EXTREMITIES: No edema feet - Labs CBC & Chem 7: 08/02/22 06:50 08/02/22 06:50 Labs: Abnormal Lab Results - Last 24 Hours (Table) 08/02/22 08/02/22 Range/Units 06:50 06:50 WBC 22.4 H (3.8-10.6) k/uL RBC 2.76 L (4.30-5.90) m/uL Hgb 8.2 L (13.0-17.5) gm/dL Hct 26.5 L (39.0-53.0) % Plt Count 1087 H* (150-450) k/uL ESR >140 H (0-15) mm/hr Potassium 3.3 L (3.5-5.1) mmol/L Chloride 96 L (98-107) mmol/L BUN 36 H (9-20) mg/dL Glucose 131 H (74-99) mg/dL Alkaline Phosphatase 187 H (38-126) U/L C-Reactive Protein 24.8 H (<1.0) mg/dL Total Protein 5.5 L (6.3-8.2) g/dL Albumin 2.5 L (3.5-5.0) g/dL Assessment and Plan (1) Cellulitis of scrotum Current Visit: Yes Status: Acute Code(s): N49.2 - INFLAMMATORY DISORDERS OF SCROTUM SNOMED Code(s): 33634539 Plan: 1patient to the hospital with left testicular pain and swelling in this patient with no fever however he did have elevated white count though some swelling was noticed to the left coronary but no redness however has been tender to touch UA has been negative clinic suspicion is low for epididymoorchitis but not entirely excluded and will need to cover for the enteric gram-negative with the likely pathogen 2-Patient did have some clinical improvement and white count is trending down, we will continue with Rocephin 2 g daily and monitor clinical course closely Time with Patient: Less than 30
--- NOTE | 2022-08-02 17:41 | P.PN ---
Subjective Progress Note Date: 08/02/22 Hospital course: Patient is a very pleasant 87-year-old male with a past medical history of CAD status post CABG, hypertension, hyperlipidemia, GERD, and gout. He presented to the emergency department with a chief complaint of testicular pain. Patient reported severe scrotal pain and urinary frequency with dysuria beginning approximately one hour prior to arrival and aggressively worsening. He underwent full evaluation. Labs completed and reviewed. CBC revealing severe leukocytosis with WBC count of 20.1, normocytic anemia with hemoglobin of 8.8, severe thrombocytosis with platelet count of 1116. BMP revealing hypochloremia with chloride of 96 and an acute kidney injury with BUN of 50, creatinine 1.50, and GFR of 41 with baseline creatinine levels of 1. Lactic acid was 1.6. Liver profile revealing elevated alkaline phosphatase of 214. Urinalysis was negative for blood, protein, ketones, or infection. CT abdomen and pelvis was completed in radiology report reviewed showing prostamegaly and coronary calcifications with enlarged ascending aorta measuring up to 4.7 cm stating no acute process. Scrotal ultrasound completed showing satisfactory blood flow to bilateral testicles. Patient was admitted under services of consultation to urology and hematology. Repeat scrotal ultrasound completed on 07/31/22 revealing again no evidence for testicular mass and color-flow present within both testicles with slightly decreased appearance on the left testicle, radiology report stating cannot entirely exclude torsion/detorsion however reports appropriate arterial and venous blood flow to bilateral testicles. Urology evaluated and reviewed d ocumentation in chart urology concerning left testicular pain and induration of indeterminate etiology concerning for infection versus infarct recommending continue current antibiotics and will continue to follow along. Infectious disease also following changing antibiotics from Levaquin to Rocephin 2 g daily. Physical exam: Patient seen and fully evaluated at the bedside this morning. Patient appears to be resting comfortably this morning and reports improvement of testicular pain. Left testicle remains elevated and significantly tender to touch. Patient does remain afebrile with vital signs stable. ESR and platelet count continues to elevate. WBC count appears to slightly decrease down to 22.4 this morning. Vital signs reviewed and stable. General: Nontoxic, no distress and appears stated age. Derm: Skin warm and dry, normal coloration for ethnicity. Head: Atraumatic, normocephalic and symmetric. Eyes: EOMs intact, no lid lag, and anicteric sclera Mouth: no lip lesions, mucus membranes moist Cardiovascular: regular rate and rhythm with normal S1S2, no murmur, positive posterior tibial pulses bilaterally, and cap refill < 2 seconds. Lungs: Respirations even, regular, and unlabored on room air. Lungs CTA bilaterally, no rhonchi, no rales, no wheezing, and no accessory muscle usage. GI/: soft, nontender to palpation, no guarding, no appreciable organomegaly. Left testicle elevated and remains tender to touch, . Right testicle appears normal with no tenderness reported. Ext: ROM intact. No gross muscle atrophy, no edema, no contractures Neuro: Speech clear, face symmetrical and CN II-XII grossly intact with no noted focal neuro deficits Psych: Alert and oriented to person, place, time, and situation. Appropriate and pleasant affect. Assessment and Plan of Care: Left testicular pain, orchitis of unclear origin rule out epididymitis versus p rostatitis versus scrotal infarct Severe thrombocytosis, worsening Severe leukocytosis Acute kidney injury, improving Prostamegaly noted on CT Hypomagnesemia, resolved Hypokalemia Elevated inflammatory markers -Labs completed and reviewed. CBC showing leukocytosis with WBC count of 22.4, hemoglobin 8.2, platelet count continues to increase and now at 1087. ESR further worsening greater than 140. -It is unclear if thrombocytosis and leukocytosis is reactive secondary to acute infection. -Infectious disease following, recommending continued antibiotics with Rocephin 2 g every 24 hours. -Urology following and reviewed documentation in chart, stating patient appears to be in improving but it is unclear if orchitis is infectious or other etiology but stating no further urologic workup recommended at this time. -Recommend patient continue hydroxyurea and aspirin for thrombocytosis and appreciate further recommendations from hematology. -Acute kidney injury improved with BUN of 36, creatinine 1.01, and GFR of 66. -Repeat morning and CBC to follow-up on leukocytosis and thrombocytosis. -Hematology/oncology following and reviewed documentation in chart, they are recommending further workup for anemia and consulted general surgeon for anemia workup secondary to patient's reports of recent dark colored stools. -Gen. surgery following and discussed plan of care, planning to take patient for upper and lower endoscopy secondary to findings of anemia. -Hypomagnesemia resolved with repeat magnesium of 2.1. -Alkaline phosphatase remains elevated at 187. History of CAD status post CABG Hypertension Hyperlipidemia -Continue home cardiac medication regimen with aspirin 81 mg daily, metoprolol 50 mg twice daily, and pravastatin 40 mg daily. CODE STATUS: Full code DVT prophylaxis: Heparin Discussed with: Patient, infectious disease physician, Gen. surgeon and RN Anticipated discharge date: Clinical course to determine Anticipated discharge place: Home Patient was seen independently by Nurse Pracitioner. This document was prepared using [employer] dictation software. Please allow for errors in knockdown man, while rare they do occur. Mayur Crain NP rendered care for this patient independently, reviewed the findings and plan as documented in the note above. I did not physically speak with or examine the patient on this date. Objective - Vital Signs Vital signs: Vital Signs Temp 97.6 F 08/02/22 07:38 Pulse 88 08/02/22 07:38 Resp 17 08/02/22 07:38 BP 112/63 08/02/22 07:38 Pulse Ox 98 08/02/22 07:38 FiO2 Intake & Output 08/01/22 08/02/22 08/02/22 18:59 06:59 18:59 Intake Total 1154 Output Total 300 425 Balance 854 -425 Intake: Oral 1154 Output: Urine 300 425 Other: Voiding Method Urinal Urinal - Labs CBC & Chem 7: 08/03/22 04:55 08/03/22 04:55 Labs: Abnormal Lab Results - Last 24 Hours (Table) 08/01/22 08/01/22 08/02/22 Range/Units 07:03 07:03 06:50 WBC 24.45 H 22.4 H (4.50-10.00) X 10*3/uL RBC 2.51 L 2.76 L (4.40-5.60) X 10*6/uL Hgb 7.6 L 8.2 L (13.0-17.0) g/dL Hct 24.4 L 26.5 L (39.6-50.0) % MCV 97.2 H (80.0-97.0) fL MCHC 31.1 L (32.0-37.0) g/dL RDW 14.8 H (11.5-14.5) % Plt Count 1171 H* 1087 H* (140-440) X 10*3/uL Plt Count Comment INCREASED A Immature Gran # 0.25 H (0.00-0.04) X 10*3/uL Neutrophils # 19.94 H (1.80-7.70) X 10*3/uL Monocytes # 1.36 H (0.20-1.00) X 10*3/uL Eosinophils # 1.56 H (0.04-0.35) X 10*3/uL ESR 63 H >140 H (0-20) mm/Hr BUN 34.4 H (9.0-27.0) mg/dL Est GFR (CKD-EPI)AfAm 58.8 L (60.0-200.0) Est GFR (CKD-EPI)NonAf 50.7 L (60.0-200.0) BUN/Creatinine Ratio 27.52 H (12.00-20.00) Ratio Glucose 117 H (70-110) mg/dL Ferritin 1258.0 H (22.0-322.0) ng/mL Total Bilirubin 0.20 L (0.30-1.20) mg/dL AST 13 L (14-35) U/L Alkaline Phosphatase 163 H (41-126) U/L C-Reactive Protein 22.90 H (0.00-0.80) mg/dL Total Protein 5.3 L (6.2-8.2) g/dL Albumin 2.4 L (3.8-4.9) g/dL Albumin/Globulin Ratio 0.84 L (1.60-3.17) g/dL
[2022-08-02] MEDS: HYDROmorphone 0.5 MG/0.5 ML SYRINGE IVP PRN ×2 (18:57→23:22)
[2022-08-02] MEDS ORDERED: POTASSIUM CHLORIDE ER 20 MEQ TAB.ER PO STA (19:13)
[2022-08-02] MEDS: PRAVASTATIN SODIUM 40 MG TAB PO SCH (21:40)
[2022-08-02] MEDS: FAMOTIDINE 20 MG TAB PO SCH (21:40)
[2022-08-03] MEDS: HYDROcodone/APAP 5-325MG 1 EACH TAB PO PRN (08:27)
[2022-08-03] MEDS: allopurinoL 100 MG TAB PO SCH (08:28)
[2022-08-03] MEDS: HYDROXYUREA 500 MG CAP PO SCH (08:28)
[2022-08-03] MEDS: HEPARIN SODIUM,PORCINE/PF 5,000 UNIT/0.5 ML SYRINGE SQ SCH ×2 (08:28→15:57)
[2022-08-03] MEDS: METOPROLOL TARTRATE 50 MG TAB PO SCH (08:28)
[2022-08-03] MEDS: ASPIRIN 81 MG PO SCH (08:28)
[2022-08-03 09:44] LABS: Magnesium 1.9 mg/dL (1.5-2.4)
[2022-08-03 09:45] LABS: ALT 14 U/L (10-49); AST 21 U/L (14-35); African American GFR (CKD) 68.6 (60.0-200.0); Albumin 2.5 g/dL (3.8-4.9); Albumin/Globulin Ratio 0.86 (1.60-3.17); Alkaline Phosphatase 183 U/L (41-126); BUN/Creat Ratio 33.18 Ratio (12.00-20.00); Blood Urea Nitrogen 36.5 mg/dL (9.0-27.0); Calcium 9.3 mg/dL (8.7-10.3); Carbon Dioxide 28.6 mmol/L (20.0-27.5); Chloride 98 mmol/L (96-109); Globulin 2.9 g/dL (1.6-3.3); Glucose 120 mg/dL (70-110); Non-African American GFR(CKD) 59.2 (60.0-200.0); Potassium 4.4 mmol/L (3.5-5.5); Sodium 139 mmol/L (135-145); Total Bilirubin <0.15 mg/dL (0.30-1.20); Total Protein 5.4 g/dL (6.2-8.2)
--- NOTE | 2022-08-03 10:51 | P.CRDCN ---
History of Present Illness Consult date: 08/03/22 Reason for Consult (text): History of present illness: This is and 87 year old significant past medical history of CAD, CABG 5 vessels approximately 30 years ago, hypertension, hyperlipidemia who presented for generalized weakness. patient receives all of his medical care at [place]. CABG was done 30 years ago in [place]. We have been asked to evaluate the patient for c ardiac pauses. He presented to the hospital due to lower abdominal pain and scrotal pain and edema with possible scrotal cellulitis. Patient's been seen by infectious disease and urology, on antibiotics. Patient denies having any chest pain, shortness of breath, no palpitations. EKGand telemetry reviewed. Patient noted to have a sinus rhythm with bundle branch block, occasional blocked PAC, no significant pauses WBC 22.4, hemoglobin 8.2, platelet count 1087. Sed rate greater than 140. Sod ium 139, potassium 4.4, chloride 98, CO2 28, BUN 36, creatinine 1.1. Ferritin level [id number]. Total bilirubin less than 0.15, AST 21, ALT 14, alkaline phosphatase 183. C-reactive protein 24. Pro-calcitonin 1.8. Covid 19 not detected. Home cardiac medications:aspirin 81 mg daily, hydrochlorothiazide 25 mg daily, Lopressor 50 mg twice daily, pravastatin 40 mg at bedtime Review Of Systems: At the time of my evaluation: Constitutional: No fever, no chills. No weakness, fatigue or lethargy. EENT: No headache. No dizziness. Lungs: No shortness of breath, cough, no sputum production. No wheezing. Cardiovascular: No chest pain, no lower extremity edema. No palpitations. No paroxysmal nocturnal dyspnea. No orthopnea. No lightheadedness or dizziness. No syncopal episodes. Abdominal: reported abdominal pain resolved. No nausea, vomiting. No diarrhea. No constipation. No bloody or tarry stools. Genitourinary: No dysuria. No urinary retention. Musculoskeletal: No myalgias. No muscle weakness, no frequent falls. No back pain. No neck pain. Integumentary: No wounds. No rash. No unusual bruising. Neurologic: No aphasia. No facial droop. No change in mentation. No head injury. No headache. Physical examination: Gen: This is a frail appearing 87-year-old male. He is resting in bed and appears to be comfortable and in no acute distress VS: reviewed HEENT: Head is atraumatic, normocephalic. Pupils equal, round. Sclerae is anicteric. NECK: Supple. No JVD. . LUNGS: Clear to auscultation. No wheezes or rhonchi. No intercostal retractions. HEART: Regular rate and rhythm. No murmur. ABDOMEN: Soft No tenderness. EXTREMITIES: No pedal edema. No calf tenderness. NEUROLOGICAL: Patient is awake, alert and oriented x3. Assessment: CAD with previous CABG Asymptomatic bradycardia, no significant pauses noted but signs are indicative of conduction system disease Hypertension Hyperlipidemia Abdominal pain/testicular pain and edema, cellulitis Plan: Continue patient's home cardiac medications Decrease Lopressor to 25 mg twice daily Continue telemetry monitoring. Obtain 2-D echocardiogram and Doppler study to assess cardiac structure and function we will follow on an as-needed basis. Please reconsult if the new pauses/bradycardia is noted. Thank you kindly for this consultation. Nurse practitioner note has been reviewed, I agree with documented findings and plan of care. Patient was seen and examined. Past Medical History Past Medical History: Coronary Artery Disease (CAD), Hyperlipidemia, Hyper tension History of Any Multi-Drug Resistant Organisms: None Reported Past Surgical History: Coronary Bypass/CABG Past Anesthesia/Blood Transfusion Reactions: No Reported Reaction Past Psychological History: Anxiety Smoking Status: Former smoker Past Alcohol Use History: Occasional Past Drug Use History: None Reported Medications and Allergies Home Medications Medication Instructions Recorded Confirmed Type Metoprolol Tartrate [Lopressor] 50 mg PO BID 06/01/15 07/30/22 History diazePAM [Valium] 5 mg PO BID PRN 06/01/15 07/30/22 History hydroCHLOROthiazide [Hydrodiuril] 25 mg PO DAILY 06/01/15 07/30/22 History allopurinoL [Zyloprim] 100 mg PO DAILY 10/02/19 07/30/22 History Pravastatin Sodium [Pravachol] 40 mg PO HS 07/18/22 07/30/22 History Aspirin 81 mg PO DAILY #30 tab 07/22/22 07/30/22 Rx Famotidine [Pepcid] 20 mg PO HS #30 tab 07/22/22 07/30/22 Rx Allergies Allergy/AdvReac Type Severity Reaction Status Date / Time Iodinated Contrast Media Allergy Anaphylaxis Verified 07/30/22 15:30 Physical Exam Vitals: Vital Signs Temp Pulse Resp BP Pulse Ox 08/03/22 07:00 98.5 F 74 18 140/75 96 08/03/22 00:59 98.9 F 88 17 121/61 95 08/02/22 18:56 98.2 F 98 20 131/59 96 08/02/22 13:56 97.9 F 82 19 120/68 97 Intake and Output 08/02/22 08/03/22 08/03/22 22:59 06:59 14:59 Output Total 475 Balance -475 Output: Urine 475 Other: Voiding Method Toilet Toilet Urinal Urinal # Voids 1 Results 08/02/22 06:50 08/03/22 04:55 Cardiac Enzymes 08/02/22 08/03/22 Range/Units 06:50 04:55 AST 23 21 (17-59) U/L Comprehensive Metabolic Panel 08/02/22 08/03/22 Range/Units 06:50 04:55 Sodium 137 139 (137-145) mmol/L Potassium 3.3 L 4.4 (3.5-5.1) mmol/L Chloride 96 L 98 (98-107) mmol/L Carbon Dioxide 30 28.6 H (22-30) mmol/L BUN 36 H 36.5 H (9-20) mg/dL Creatinine 1.01 1.1 (0.66-1.25) mg/dL Glucose 131 H 120 H (74-99) mg/dL Calcium 8.4 9.3 (8.4-10.2) mg/dL AST 23 21 (17-59) U/L ALT 17 14 (4-49) U/L Alkaline Phosphatase 187 H 183 H (38-126) U/L Total Protein 5.5 L 5.4 L (6.3-8.2) g/dL Albumin 2.5 L 2.5 L (3.5-5.0) g/dL Current Medications Generic Name Dose Route Start Last Admin Trade Name Freq PRN Reason Stop Dose Admin Hydrocodone Bitart/Acetaminophen 1 each 07/31/22 08:48 08/03/22 08:27 Hydrocodone/Apap 5-325mg 1 Each Tab PO 1 each Q4HR PRN Administration Moderate Pain (Scale 4 to 6) Allopurinol 100 mg 07/31/22 09:00 08/03/22 08:28 Allopurinol 100 Mg Tab PO 100 mg DAILY TRUPTI Administration Aspirin 81 mg 07/31/22 09:00 08/03/22 08:28 Aspirin 81 Mg PO 81 mg DAILY TRUPTI Administration Famotidine 20 mg 07/31/22 21:00 08/02/22 21:40 Famotidine 20 Mg Tab PO 20 mg HS TRUPTI Administration Heparin Sodium (Porcine) 5,000 unit 07/31/22 08:00 08/03/22 08:28 Heparin Sodium,Porcine/Pf 5,000 Unit/0.5 Ml Syringe SQ 5,000 unit Q8HR TRUPTI Administration Hydromorphone HCl 0.5 mg 07/31/22 08:48 08/02/22 23:22 Hydromorphone 0.5 Mg/0.5 Ml Syringe IVP 0.5 mg Q4HR PRN Administration Pain Hydroxyurea 500 mg 07/30/22 21:00 08/03/22 08:28 Hydroxyurea 500 Mg Cap PO 500 mg DAILY TRUPTI Administration Ceftriaxone Sodium 2 gm/ 50 mls @ 100 mls/hr 07/31/22 13:00 08/03/22 08:28 Sodium Chloride IVPB 100 mls/hr Q24HR TRUPTI Administration Protocol Metoprolol Tartrate 25 mg 08/03/22 21:00 Metoprolol Tartrate 25 Mg Tab PO BID TRUPTI Pravastatin Sodium 40 mg 07/31/22 21:00 08/02/22 21:40 Pravastatin Sodium 40 Mg Tab PO 40 mg HS TRUPTI Administration Intake and Output 08/02/22 08/03/22 08/03/22 22:59 06:59 14:59 Output Total 475 Balance -475 Output: Urine 475 Other: Voiding Method Toilet Toilet Urinal Urinal # Voids 1 08/02/22 06:50 08/03/22 04:55
[2022-08-03 11:00] LABS: NRBC Per 100 WBC 0 /100 WBCS (0.0-0.0)
[2022-08-03 11:18] LABS: HGB 7.8 g/dL (13.0-17.0); Mean Platelet Volume 9.5 fL (9.5-12.2); Platelet Count 1033 X 10*3/uL (140-440); RDW 15.1 % (11.5-14.5); WBC 21.58 X 10*3/uL (4.50-10.00)
--- NOTE | 2022-08-03 12:41 | P.PN ---
Subjective Progress Note Date: 08/03/22 Principal diagnosis: thrombocytosis At today's visit patient is resting comfortably in bed. He is reporting persisting left testicular pain. platelets 1033, hgb 7.8. Objective - Vital Signs Vital signs: Vital Signs Temp 98.5 F 08/03/22 07:00 Pulse 74 08/03/22 07:00 Resp 18 08/03/22 07:00 BP 140/75 08/03/22 07:00 Pulse Ox 96 08/03/22 07:00 FiO2 Intake & Output 08/02/22 08/03/22 08/03/22 18:59 06:59 18:59 Intake Total 236 Output Total 475 Balance 236 -475 Intake: Oral 236 Output: Urine 475 Other: Voiding Method Toilet Toilet Toilet Urinal Urinal # Voids 1 - Constitutional General appearance: Present: average body habitus, no acute distress - EENT Eyes: Present: anicteric sclerae, EOMI ENT: Present: hearing grossly normal - Respiratory Details: breathing is even and unlabored - Cardiovascular Details: skin warm and dry - Gastrointestinal General gastrointestinal: Present: soft. Absent: tenderness - Genitourinary Genitourinary Comment(s): left testicle retracted and tender to palpation - Integumentary Integumentary: Present: pale - Neurologic Neurologic Comment(s): grossly intact - Musculoskeletal Musculoskeletal: Present: strength equal bilaterally - Psychiatric Psychiatric: Present: A&O x's 3, appropriate affect, intact judgment & insight - Labs CBC & Chem 7: 08/03/22 04:55 08/03/22 04:55 Labs: Abnormal Lab Results - Last 24 Hours (Table) 08/02/22 08/03/22 08/03/22 Range/Units 17:25 04:55 04:55 WBC 21.58 H (4.50-10.00) X 10*3/uL RBC 2.60 L (4.40-5.60) X 10*6/uL Hgb 7.8 L (13.0-17.0) g/dL Hct 26.0 L (39.6-50.0) % MCV 100.0 H (80.0-97.0) fL MCHC 30.0 L (32.0-37.0) g/dL RDW 15.1 H (11.5-14.5) % Plt Count 1033 H* (140-440) X 10*3/uL Carbon Dioxide 28.6 H (20.0-27.5) mmol/L BUN 36.5 H (9.0-27.0) mg/dL Est GFR (CKD-EPI)NonAf 59.2 L (60.0-200.0) BUN/Creatinine Ratio 33.18 H (12.00-20.00) Ratio Glucose 120 H (70-110) mg/dL Ferritin 988.0 H (22.0-322.0) ng/mL Total Bilirubin <0.15 L (0.30-1.20) mg/dL Alkaline Phosphatase 183 H (41-126) U/L C-Reactive Protein 24.00 H (0.00-0.80) mg/dL Total Protein 5.4 L (6.2-8.2) g/dL Albumin 2.5 L (3.8-4.9) g/dL Albumin/Globulin Ratio 0.86 L (1.60-3.17) g/dL Procalcitonin 1.80 H (0.02-0.09) ng/mL Assessment and Plan (1) Leukocytosis Current Visit: Yes Status: Acute Priority: Medium Code(s): D72.829 - ELEVATED WHITE BLOOD CELL COUNT, UNSPECIFIED SNOMED Code(s): 745319967 (2) Thrombocytosis Current Visit: Yes Status: Acute Priority: Medium Code(s): D75.839 - THROMBOCYTOSIS, UNSPECIFIED SNOMED Code(s): 9449340 (3) Anemia Current Visit: Yes Status: Acute Priority: Medium Code(s): D64.9 - ANEMIA, UNSPECIFIED SNOMED Code(s): 140113991 (4) Testicular pain Current Visit: Yes Status: Acute Code(s): N50.819 - TESTICULAR PAIN, UNSPECIFIED SNOMED Code(s): 16152535 Plan: Thrombocytosis/Leukocytosis: -Thrombocytosis/Leukocytosis present on previous admission on 07/23/22. Today WBC 21, platelets 1033 -Thrombocytosis and leukocytosis could be reactive due to acute condition with underling age related bone marrow suppression vs MPN -Anemia workup from admission on 07/23 revealed iron 13, iron sat 8%, and ferritin 1224. Repeat ferritin 1421. Vitamin B12 and folate normal. MPN workup still pending -Will hold aspirin at this time, due to concern for acute GI bleed -Follow up in clinic with Dr. Karen Peralta is scheduled for 08/06 for further evaluation/workup pending MPN workup. Anemia: -Recent anemia workup negative -Reports recent dark colored stool, last colonoscopy 2-[address] Nair, normal per pt -CBC consistent with normocytic normochromic anemia -Surgery consulted for evaluation for colonoscopy/EGD. Plan for colonoscopy/EGD once pt recovers Testicular pain: -Urology consulted -Scrotal ultrasound on 07/31 revealed no evidence for testicular mass. Color- flow present within both testicles with slightly decreased appearance in the left testicle. Repeat scrotal ultrasound ordered today by internal medicine Dr. attests: I have performed H&P and developed impression and plan of care for patient, discussed with dictator. I agree with dictated note, documented as a scribe
--- NOTE | 2022-08-03 13:58 | US ---
EXAMINATION TYPE: US scrotum with doppler. Grayscale and color Doppler Duplex imaging performed of idalia mcgee scrotum. DATE OF EXAM: 08/03/2022 COMPARISON: US 07/31/22 and 07/30/22 CLINICAL INDICATION: Male, 87 years old with history of left testicle retraction and severe tendernes s; Pain in the left testicle that comes and goes. Left testicle retraction and severe tenderness per order. EXAM MEASUREMENTS: TESTICLES: Right Testicle: 3.7 x 2.7 x 1.9 cm Left Testicle: 3.6 x 2.8 x 2.2 cm EPIDIDYMIS HEAD: Right Epididymis: 0.9 x 0.8 x 1.2 cm Left Epididymis: 0.5 x 1.0 x 1.0 cm Doppler performed to assess for testicular vascularity; Venous and arterial waveforms were seen withi n the right testicle. There appears to be decreased flow within the left testicle. Venous waveform wa s seen within the left testicle- arterial waveform was not seen with certainty within the left testic le. Some venous flow is identified within the internal portions of the testicle. Left testicle appears more heterogeneous*. Scrotalith is again evident. Presence of hydroceles: yes, Right: 1.1 x 1.0 x 0.8 cm Left: 0.9 x 0.9 x 0.9 cm. Presence of varicoceles: No Report was called to Fernando, the patient's nurse at Dr. Kennedy by telephone at 1353 hours 08/03/2022. IMPRESSION: 1. Poor vascular flow within the left testicle. Venous flow is identified. No definite arterial flow. This vascular flow is diminished compared to the right. Consider partial torsion.
--- NOTE | 2022-08-03 14:16 | P.PN ---
Progress Note - Text Progress Note Date: 08/03/[address] Dobbins at 14:06 PM regarding critical scrotal ultrasound results. Urology to evaluate. Mayur Crain NP rendered care for this patient independently, reviewed the findings and plan as documented in the note above. I did not physically speak with or examine the patient on this date.
--- NOTE | 2022-08-03 14:19 | P.PN ---
Subjective Progress Note Date: 08/03/22 The patient's pain has returned. He is in the hospital with left testicular pain. He has some sort of marrow problem as he has thrombocytosis leukocytosis he had an ultrasound suggesting poor inflow to the testicle with good outflow. On examination the testicle is tender again but not a lot different than it was Wednesday. The testicle does not appear to be torsed. I suspect he has an occlusive infarct due to his thrombocytosis. I explained to him that the treatment of choice would be an orchiectomy. He is not sure whether he wants this done and not at this point in time. We'll see how he does over the next 24 hours. Objective - Vital Signs Vital signs: Vital Signs Temp 98.0 F 08/03/22 13:48 Pulse 82 08/03/22 13:48 Resp 18 08/03/22 07:00 BP 127/57 08/03/22 13:48 Pulse Ox 98 08/03/22 13:48 FiO2 Intake & Output 08/02/22 08/03/22 08/03/22 18:59 06:59 18:59 Intake Total 236 Output Total 475 Balance 236 -475 Intake: Oral 236 Output: Urine 475 Other: Voiding Method Toilet Toilet Toilet Urinal Urinal # Voids 1 - Labs CBC & Chem 7: 08/03/22 04:55 08/03/22 04:55 Labs: Abnormal Lab Results - Last 24 Hours (Table) 08/02/22 08/03/22 08/03/22 Range/Units 17:25 04:55 04:55 WBC 21.58 H (4.50-10.00) X 10*3/uL RBC 2.60 L (4.40-5.60) X 10*6/uL Hgb 7.8 L (13.0-17.0) g/dL Hct 26.0 L (39.6-50.0) % MCV 100.0 H (80.0-97.0) fL MCHC 30.0 L (32.0-37.0) g/dL RDW 15.1 H (11.5-14.5) % Plt Count 1033 H* (140-440) X 10*3/uL Carbon Dioxide 28.6 H (20.0-27.5) mmol/L BUN 36.5 H (9.0-27.0) mg/dL Est GFR (CKD-EPI)NonAf 59.2 L (60.0-200.0) BUN/Creatinine Ratio 33.18 H (12.00-20.00) Ratio Glucose 120 H (70-110) mg/dL Ferritin 988.0 H (22.0-322.0) ng/mL Total Bilirubin <0.15 L (0.30-1.20) mg/dL Alkaline Phosphatase 183 H (41-126) U/L C-Reactive Protein 24.00 H (0.00-0.80) mg/dL Total Protein 5.4 L (6.2-8.2) g/dL Albumin 2.5 L (3.8-4.9) g/dL Albumin/Globulin Ratio 0.86 L (1.60-3.17) g/dL Procalcitonin 1.80 H (0.02-0.09) ng/mL Assessment and Plan Assessment: Impression: Left orchialgia probably due to testicular ischemia from thrombocytosis Recommendations: We have discussed and orchiectomy with the patient he'll deliberate whether he wants that done or not. 87 he does not need the testicle, it is therefore whether the pain is bad enough he wishes to have something done.
--- NOTE | 2022-08-03 14:25 | P.PN ---
Subjective Progress Note Date: 08/03/22 CHIEF COMPLAINT: Testicular pain HISTORY OF PRESENT ILLNESS: Surgical service on consult for anemia. Patient hospitalized with testicular pain. Followed by urology who feels that the testicular pain is likely due to testicular ischemia from thrombocytosis. Afebrile. WBC is 21 Hgb is 7.8 platelets 1033. Patient does report having dark stools at home. Since his hospitalization has not had any stools. PHYSICAL EXAM: VITAL SIGNS: Reviewed. GENERAL: Well-developed in no acute distress. HEENT: No sclera icterus. Extraocular movements grossly intact. Moist buccal mucosa. Head is atraumatic, normocephalic. ABDOMEN: Soft. Nondistended. Nontender. NEUROLOGIC: Alert and oriented. Cranial nerves II through XII grossly intact. ASSESSMENT: 1. Anemia with recent dark-colored stools 2. Testicular pain followed by urology PLAN: -Recommend EGD and colonoscopy when medically stable Physician Corporate Trainer note has been reviewed by physician. Signing provider agrees with the documented findings, assessment, and plan of care. Objective - Vital Signs Vital signs: Vital Signs Temp 98.0 F 08/03/22 13:48 Pulse 82 08/03/22 13:48 Resp 18 08/03/22 07:00 BP 127/57 08/03/22 13:48 Pulse Ox 98 08/03/22 13:48 FiO2 Intake & Output 08/02/22 08/03/22 08/03/22 18:59 06:59 18:59 Intake Total 236 Output Total 475 Balance 236 -475 Intake: Oral 236 Output: Urine 475 Other: Voiding Method Toilet Toilet Toilet Urinal Urinal # Voids 1 - Labs CBC & Chem 7: 08/03/22 04:55 08/03/22 04:55 Labs: Abnormal Lab Results - Last 24 Hours (Table) 08/02/22 08/03/22 08/03/22 Range/Units 17:25 04:55 04:55 WBC 21.58 H (4.50-10.00) X 10*3/uL RBC 2.60 L (4.40-5.60) X 10*6/uL Hgb 7.8 L (13.0-17.0) g/dL Hct 26.0 L (39.6-50.0) % MCV 100.0 H (80.0-97.0) fL MCHC 30.0 L (32.0-37.0) g/dL RDW 15.1 H (11.5-14.5) % Plt Count 1033 H* (140-440) X 10*3/uL Carbon Dioxide 28.6 H (20.0-27.5) mmol/L BUN 36.5 H (9.0-27.0) mg/dL Est GFR (CKD-EPI)NonAf 59.2 L (60.0-200.0) BUN/Creatinine Ratio 33.18 H (12.00-20.00) Ratio Glucose 120 H (70-110) mg/dL Ferritin 988.0 H (22.0-322.0) ng/mL Total Bilirubin <0.15 L (0.30-1.20) mg/dL Alkaline Phosphatase 183 H (41-126) U/L C-Reactive Protein 24.00 H (0.00-0.80) mg/dL Total Protein 5.4 L (6.2-8.2) g/dL Albumin 2.5 L (3.8-4.9) g/dL Albumin/Globulin Ratio 0.86 L (1.60-3.17) g/dL Procalcitonin 1.80 H (0.02-0.09) ng/mL
--- NOTE | 2022-08-03 14:43 | P.PN ---
Subjective Progress Note Date: 08/03/22 Hospital course: Patient is a very pleasant 87-year-old male with a past medical history of CAD status post CABG, hypertension, hyperlipidemia, GERD, and gout. He presented to the emergency department with a chief complaint of testicular pain. Patient reported severe scrotal pain and urinary frequency with dysuria beginning approximately one hour prior to arrival and aggressively worsening. He underwent full evaluation. Labs completed and reviewed. CBC revealing severe leukocytosis with WBC count of 20.1, normocytic anemia with hemoglobin of 8.8, severe thrombocytosis with platelet count of 1116. BMP revealing hypochloremia with chloride of 96 and an acute kidney injury with BUN of 50, creatinine 1.50, and GFR of 41 with baseline creatinine levels of 1. Lactic acid was 1.6. Liver profile revealing elevated alkaline phosphatase of 214. Urinalysis was negative for blood, protein, ketones, or infection. CT abdomen and pelvis was completed in radiology report reviewed showing prostamegaly and coronary calcifications with enlarged ascending aorta measuring up to 4.7 cm stating no acute process. Scrotal ultrasound completed showing satisfactory blood flow to bilateral testicles. Patient was admitted under services of consultation to urology and hematology. Repeat scrotal ultrasound completed on 07/31/22 revealing again no evidence for testicular mass and color-flow present within both testicles with slightly decreased appearance on the left testicle, radiology report stating cannot entirely exclude torsion/detorsion however reports appropriate arterial and venous blood flow to bilateral testicles. Urology evaluated and reviewed d ocumentation in chart urology concerning left testicular pain and induration of indeterminate etiology concerning for infection versus infarct recommending continue current antibiotics and will continue to follow along. Infectious disease also following changing antibiotics from Levaquin to Rocephin 2 g daily. Physical exam: Patient seen and fully evaluated at the bedside this morning. Patient continues to have significant left testicular pain. On examination left testicle retracted and upon attempts at examining pt yelling out and reports excruciating pain. Order placed for repeat testicular ultrasound at this time. Vital signs reviewed and stable. General: Nontoxic, no distress and appears stated age. Derm: Skin warm and dry, normal coloration for ethnicity. Head: Atraumatic, normocephalic and symmetric. Eyes: EOMs intact, no lid lag, and anicteric sclera Mouth: no lip lesions, mucus membranes moist Cardiovascular: regular rate and rhythm with normal S1S2, no murmur, positive posterior tibial pulses bilaterally, and cap refill < 2 seconds. Lungs: Respirations even, regular, and unlabored on room air. Lungs CTA bilaterally, no rhonchi, no rales, no wheezing, and no accessory muscle usage. GI/: soft, nontender to palpation, no guarding, no appreciable organomegaly. Left testicle retracted and upon attempts at examination very painful to touch. Right testicle appears normal with no tenderness reported. Ext: ROM intact. No gross muscle atrophy, no edema, no contractures Neuro: Speech clear, face symmetrical and CN II-XII grossly intact with no noted focal neuro deficits Psych: Alert and oriented to person, place, time, and situation. Appropriate and pleasant affect. Assessment and Plan of Care: Left testicular pain, orchitis of unclear origin rule out epididymitis versus prostatitis versus scrotal infarct Severe thrombocytosis, possibly reactive Severe leukocytosis, possibly reactive Acute kidney injury, improving Prostamegaly noted on CT Hypomagnesemia, resolved Hypokalemia Elevated inflammatory markers -Labs completed and reviewed. CBC revealing continued leukocytosis with WBC count of 21.58, macrocytic anemia with hemoglobin of 7.8 and persistent thrombocytosis with platelet count of 1033. CRP 24.00. Procalcitonin 1.80. Ferritin 988.0 and ESR greater than 140. -On examination left testicle retracted and upon attempts at examining pt yelling out and reports excruciating pain. Order placed for repeat testicular ultrasound at this time. -Infectious disease following, and discussed plan of care with Dr. Salinas and he is recommending continuation of Rocephin 2 g every 24 hours. -Urology following. Will notify of persistent testicular pain. -Hematology/oncology following and discussed plan of care with Mat Linker as well as hematology TECHNICAL SERVICES LIBRARIAN and they're in agreement with continuation of hydroxyurea and aspirin for thrombocytosis. -Acute kidney injury improved with BUN of 36.5, creatinine 1.1, and GFR of 68.6. -Repeat morning and CBC to follow-up on leukocytosis and thrombocytosis. -Gen. surgery following and discussed plan of care, planning to take patient for upper and lower endoscopy secondary to findings of anemia once medically stable. History of CAD status post CABG Hypertension Hyperlipidemia -Continue home cardiac medication regimen with aspirin 81 mg daily, metoprolol 50 mg twice daily, and pravastatin 40 mg daily. CODE STATUS: Full code DVT prophylaxis: Heparin Discussed with: Patient, infectious disease physician, rn gyn and hematology TECHNICAL SERVICES LIBRARIAN Anticipated discharge date: Clinical course to determine Anticipated discharge place: Home Patient was seen independently by Nurse Pracitioner. This document was prepared using [employer] dictation software. Please allow for errors in pharmacy care coordinator, while rare they do occur. Mayur Crain NP rendered care for this patient independently, reviewed the findi ngs and plan as documented in the note above. I did not physically speak with or examine the patient on this date. Objective - Vital Signs Vital signs: Vital Signs Temp 98.5 F 08/03/22 07:00 Pulse 74 08/03/22 07:00 Resp 18 08/03/22 07:00 BP 140/75 08/03/22 07:00 Pulse Ox 96 08/03/22 07:00 FiO2 Intake & Output 08/02/22 08/03/22 08/03/22 18:59 06:59 18:59 Intake Total 236 Output Total 475 Balance 236 -475 Intake: Oral 236 Output: Urine 475 Other: Voiding Method Toilet Toilet Toilet Urinal Urinal # Voids 1 - Labs CBC & Chem 7: 08/03/22 04:55 08/03/22 04:55 Labs: Abnormal Lab Results - Last 24 Hours (Table) 08/02/22 08/02/22 Range/Units 06:50 17:25 Potassium 3.3 L (3.5-5.1) mmol/L Chloride 96 L (98-107) mmol/L BUN 36 H (9-20) mg/dL Glucose 131 H (74-99) mg/dL Alkaline Phosphatase 187 H (38-126) U/L C-Reactive Protein 24.8 H (<1.0) mg/dL Total Protein 5.5 L (6.3-8.2) g/dL Albumin 2.5 L (3.5-5.0) g/dL Procalcitonin 1.80 H (0.02-0.09) ng/mL
[2022-08-03 15:42] LABS: Erythrocyte Sedimentation Rate 87 mm/Hr (0-20)
[2022-08-03] MEDS: PRAVASTATIN SODIUM 40 MG TAB PO SCH (21:15)
[2022-08-03] MEDS: METOPROLOL TARTRATE 25 MG TAB PO SCH (21:15)
[2022-08-03] MEDS: FAMOTIDINE 20 MG TAB PO SCH (21:15)
[2022-08-04] MEDS: HEPARIN SODIUM,PORCINE/PF 5,000 UNIT/0.5 ML SYRINGE SQ SCH ×4 (02:13→23:42)
[2022-08-04] MEDS: HYDROmorphone 0.5 MG/0.5 ML SYRINGE IVP PRN (02:35)
--- NOTE | 2022-08-04 07:35 | P.PN ---
Subjective Progress Note Date: 08/03/22 Principal diagnosis: Possible left scrotal cellulitis Patient is a 87-year-old male with a past medical history significant for coronary disease hyperlipidemia hypertension presenting to the ER for evaluation of lower abdominal and scrotal pain , question of possible scrotal cellulitis On today's evaluation that is 08/03/2022, the patient continues to be afebrile, patient denies having any chest pain or shortness of breath or cough, the patient is complaining of more left-sided scrotal pain today, the patient denies nausea no vomiting no diarrhea Objective - Vital Signs Vital signs: Vital Signs Temp 98.5 F 08/03/22 07:00 Pulse 74 08/03/22 07:00 Resp 18 08/03/22 07:00 BP 140/75 08/03/22 07:00 Pulse Ox 96 08/03/22 07:00 FiO2 Intake & Output 08/02/22 08/03/22 08/03/22 18:59 06:59 18:59 Intake Total 236 Output Total 475 Balance 236 -475 Intake: Oral 236 Output: Urine 475 Other: Voiding Method Toilet Toilet Toilet Urinal Urinal # Voids 1 - Exam GENERAL DESCRIPTION: An elderly male lying in bed in no distress RESPIRATORY SYSTEM: Unlabored breathing , decreased breath sounds at bases HEART: S1 S2 regular rate and rhythm , ABDOMEN: Soft , no tenderness : Left scrotal swelling about the same and no redness EXTREMITIES: No edema feet - Labs CBC & Chem 7: 08/03/22 04:55 08/03/22 04:55 Labs: Abnormal Lab Results - Last 24 Hours (Table) 08/02/22 08/02/22 08/03/22 Range/Units 06:50 17:25 04:55 Potassium 3.3 L (3.5-5.1) mmol/L Chloride 96 L (98-107) mmol/L Carbon Dioxide 28.6 H (20.0-27.5) mmol/L BUN 36 H 36.5 H (9-20) mg/dL Est GFR (CKD-EPI)NonAf 59.2 L (60.0-200.0) BUN/Creatinine Ratio 33.18 H (12.00-20.00) Ratio Glucose 131 H 120 H (74-99) mg/dL Ferritin 988.0 H (22.0-322.0) ng/mL Total Bilirubin <0.15 L (0.30-1.20) mg/dL Alkaline Phosphatase 187 H 183 H (38-126) U/L C-Reactive Protein 24.8 H 24.00 H (<1.0) mg/dL Total Protein 5.5 L 5.4 L (6.3-8.2) g/dL Albumin 2.5 L 2.5 L (3.5-5.0) g/dL Albumin/Globulin Ratio 0.86 L (1.60-3.17) g/dL Procalcitonin 1.80 H (0.02-0.09) ng/mL Assessment and Plan (1) Cellulitis of scrotum Current Visit: Yes Status: Acute Code(s): N49.2 - INFLAMMATORY DISORDERS OF SCROTUM SNOMED Code(s): 70704894 Plan: 1patient to the hospital with left testicular pain and swelling in this patient with no fever however he did have elevated white count though some swelling was noticed to the left coronary but no redness however has been tender to touch UA has been negative clinic suspicion is low for epididymoorchitis but not entirely excluded and will need to cover for the enteric gram-negative with the likely pathogen 2-Patient did have more pain today repeat ultrasound has been ordered to rule out torsion as per discussion with CASE FOLDER , patient to continue with the Rocephin and monitor clinical course closely Time with Patient: Less than 30
--- NOTE | 2022-08-04 08:59 | P.PN ---
Subjective Progress Note Date: 08/04/22 Principal diagnosis: Left orchialgia The patient is an 87-year-old white male with thrombocytosis. He has experienced intermittent left orchialgia, presumed to be due to testicular ischemia. Scrotal ultrasound with Doppler yesterday showed diminished arterial inflow to the left testicle. The patient states that his pain is improved this morning. Objective - Vital Signs Vital signs: Vital Signs Temp 97.8 F 08/04/22 07:14 Pulse 84 08/04/22 07:14 Resp 16 08/04/22 07:14 BP 123/62 08/04/22 07:14 Pulse Ox 97 08/04/22 07:14 FiO2 Intake & Output 08/03/22 08/04/22 08/04/22 18:59 06:59 18:59 Intake Total 240 Output Total 200 Balance 240 -200 Intake: Oral 240 Output: Urine 200 Other: Voiding Method Toilet Toilet Urinal Urinal # Voids 1 1 # Bowel Movements 1 - Constitutional General appearance: Present: average body habitus, no acute distress - Respiratory Details: Normal respiratory effort, no respiratory distress. - Genitourinary Genitourinary Comment(s): Normal phallus, normal urethral meatus. The scrotum is normal. The right testicle is normal. The left testicle is mildly enlarged, tender, and high- riding. - Labs CBC & Chem 7: 08/03/22 04:55 08/03/22 04:55 Labs: Abnormal Lab Results - Last 24 Hours (Table) 08/02/22 08/03/22 08/03/22 Range/Units 17:25 04:55 04:55 WBC 21.58 H (4.50-10.00) X 10*3/uL RBC 2.60 L (4.40-5.60) X 10*6/uL Hgb 7.8 L (13.0-17.0) g/dL Hct 26.0 L (39.6-50.0) % MCV 100.0 H (80.0-97.0) fL MCHC 30.0 L (32.0-37.0) g/dL RDW 15.1 H (11.5-14.5) % Plt Count 1033 H* (140-440) X 10*3/uL ESR 87 H (0-20) mm/Hr Carbon Dioxide 28.6 H (20.0-27.5) mmol/L BUN 36.5 H (9.0-27.0) mg/dL Est GFR (CKD-EPI)NonAf 59.2 L (60.0-200.0) BUN/Creatinine Ratio 33.18 H (12.00-20.00) Ratio Glucose 120 H (70-110) mg/dL Ferritin 988.0 H (22.0-322.0) ng/mL Total Bilirubin <0.15 L (0.30-1.20) mg/dL Alkaline Phosphatase 183 H (41-126) U/L C-Reactive Protein 24.00 H (0.00-0.80) mg/dL Total Protein 5.4 L (6.2-8.2) g/dL Albumin 2.5 L (3.8-4.9) g/dL Albumin/Globulin Ratio 0.86 L (1.60-3.17) g/dL Procalcitonin 1.80 H (0.02-0.09) ng/mL Assessment and Plan Assessment: It is felt that the patient's orchalgia is ischemic in nature, secondary to thrombocytosis. (1) Testicular pain Current Visit: Yes Status: Acute Code(s): N50.819 - TESTICULAR PAIN, UNSPECIFIED SNOMED Code(s): 21205031 Plan: If the patient develops complete testicular infarct, he may require a left orchiectomy. However, I am hopeful that he can continue to be managed conservatively.
[2022-08-04] MEDS: ASPIRIN 81 MG PO SCH (09:10)
[2022-08-04] MEDS: METOPROLOL TARTRATE 25 MG TAB PO SCH ×2 (09:10→21:39)
[2022-08-04] MEDS: allopurinoL 100 MG TAB PO SCH (09:10)
[2022-08-04] MEDS: HYDROXYUREA 500 MG CAP PO SCH (09:10)
[2022-08-04 13:31] LABS: C. trachomatis,PCR Negative (Neg,Equiv); Chlamydia trachomatis Source Urine; N. gonorrhoeae,PCR Negative (Neg,Equiv); Neisseria Source Urine
--- NOTE | 2022-08-04 13:57 | P.PN ---
Subjective Progress Note Date: 08/04/22 Hospital course: Patient is a very pleasant 87-year-old male with a past medical history of CAD status post CABG, hypertension, hyperlipidemia, GERD, and gout. He presented to the emergency department with a chief complaint of testicular pain. Patient reported severe scrotal pain and urinary frequency with dysuria beginning approximately one hour prior to arrival and aggressively worsening. He underwent full evaluation. Labs completed and reviewed. CBC revealing severe leukocytosis with WBC count of 20.1, normocytic anemia with hemoglobin of 8.8, severe thrombocytosis with platelet count of 1116. BMP revealing hypochloremia with chloride of 96 and an acute kidney injury with BUN of 50, creatinine 1.50, and GFR of 41 with baseline creatinine levels of 1. Lactic acid was 1.6. Liver profile revealing elevated alkaline phosphatase of 214. Urinalysis was negative for blood, protein, ketones, or infection. CT abdomen and pelvis was completed in radiology report reviewed showing prostamegaly and coronary calcifications with enlarged ascending aorta measuring up to 4.7 cm stating no acute process. Scrotal ultrasound completed showing satisfactory blood flow to bilateral test icles. Patient was admitted under services of consultation to urology and hematology. Repeat scrotal ultrasound completed on 07/31/22 revealing again no evidence for testicular mass and color-flow present within both testicles with slightly decreased appearance on the left testicle, radiology report stating cannot entirely exclude torsion/detorsion however reports appropriate arterial and venous blood flow to bilateral testicles. Urology evaluated and reviewed documentation in chart urology concerning left testicular pain and induration of indeterminate etiology concerning for infection versus infarct recommending continue current antibiotics and will continue to follow along. Infectious d isease also following changing antibiotics from Levaquin to Rocephin 2 g daily. Patient's carotid ultrasound showed no definite arterial flow concerning for partial torsion. Patient seen by urology who believed that patient's testicular pain due to ischemia from thrombocytosis. I discussed with infectious disease will agree so antibiotics will be discontinued Patient was seen this morning. He states that he does not have any testicular pain. However he does admit to tenderness on palpation of his testicle. Patient does state that his stool is dark colored. Physical exam: General examination - Alert and Oriented 3 in NAD, appears chronically debilitated Heart - + S1S2 no murmurs Lungs - Clear to auscultation Abdomen soft NT ND +ve BS Extremities - No edema : Tenderness to palpate of the testicle STOCK HANGER - Moving all 4 extremities spontaneously Psych - Calm and cooperative Assessment Vital signs reviewed and are stable Data reviewed: A.m. labs are pending Left testicular pain secondary to ischemia from likely thrombocytosis Acute blood loss anemia Severe thrombocytosis, possibly reactive Severe leukocytosis, possibly reactive Acute kidney injury, improving Prostamegaly noted on CT Hypomagnesemia, resolved Hypokalemia Elevated inflammatory markers History of coronary disease status post CABG Hypertension Hyperlipidemia Plan I reviewed note from urology who stated that if the patient develops complete testicular infarct may require left orchiectomy however on metoprolol that he can continue to be managed conservatively. At this time patient denying any pain I discussed with infectious disease who agreed that this is not from epididy mitis so I'll discontinue antibiotics Patient is medically stable. Awaiting for when general surgery will do EGD and colonoscopy. Trend CBC Hematology recommended to continue the hydroxyurea Holding aspirin due to anemia Continue with metoprolol 50 mg twice a day and pravastatin 40 mg daily Anticipated discharge: Depending on clinical course Anticipated discharge place: Depending on clinical course Objective - Vital Signs Vital signs: Vital Signs Temp 97.8 F 08/04/22 07:14 Pulse 84 08/04/22 07:14 Resp 16 08/04/22 07:14 BP 123/62 08/04/22 07:14 Pulse Ox 97 08/04/22 07:14 FiO2 Intake & Output 08/03/22 08/04/22 08/04/22 18:59 06:59 18:59 Intake Total 240 Output Total 200 Balance 240 -200 Intake: Oral 240 Output: Urine 200 Other: Voiding Method Toilet Toilet Urinal Urinal # Voids 1 1 # Bowel Movements 1 - Labs CBC & Chem 7: 08/03/22 04:55 08/03/22 04:55 Labs: Abnormal Lab Results - Last 24 Hours (Table) 08/03/22 Range/Units 04:55 ESR 87 H (0-20) mm/Hr
[2022-08-04 14:23] LABS: NRBC Per 100 WBC 0 /100 WBCS (0.0-0.0)
[2022-08-04 14:44] LABS: HCT 26.1 % (39.6-50.0); HGB 7.8 g/dL (13.0-17.0); MCHC 29.9 g/dL (32.0-37.0); MCV 100.4 fL (80.0-97.0); Mean Platelet Volume 9.6 fL (9.5-12.2); Platelet Count 1079 X 10*3/uL (140-440); RDW 14.9 % (11.5-14.5); WBC 20.07 X 10*3/uL (4.50-10.00)
[2022-08-04 14:46] LABS: C Reactive Protein 24.8 mg/dL (0.00-0.80); Magnesium 1.9 mg/dL (1.5-2.4)
--- NOTE | 2022-08-04 14:48 | P.PN ---
Subjective Progress Note Date: 08/04/22 Principal diagnosis: thrombocytosis At today's visit patient is resting comfortably in bed. He is reporting persisting left testicular pain, but reports pain is improved today. Repeat scrotal US revealed poor vascular flow within the left testicle. Venous flow is identified. No definite arterial flow. Vascular flow is diminished compared to the right, consider partial torsion. Urology following. Platelets 1033, hgb 7.8, WBC 21 Objective - Vital Signs Vital signs: Vital Signs Temp 97.8 F 08/04/22 07:14 Pulse 84 08/04/22 07:14 Resp 16 08/04/22 07:14 BP 123/62 08/04/22 07:14 Pulse Ox 97 08/04/22 07:14 FiO2 Intake & Output 08/03/22 08/04/22 08/04/22 18:59 06:59 18:59 Intake Total 240 Output Total 200 Balance 240 -200 Intake: Oral 240 Output: Urine 200 Other: Voiding Method Toilet Toilet Urinal Urinal # Voids 1 1 # Bowel Movements 1 - Constitutional General appearance: Present: average body habitus, no acute distress - EENT Eyes: Present: anicteric sclerae, EOMI ENT: Present: hearing grossly normal - Respiratory Details: breathing is even and unlabored - Cardiovascular Details: skin is warm and dry - Gastrointestinal General gastrointestinal: Absent: tenderness - Integumentary Integumentary: Present: pale - Musculoskeletal Musculoskeletal: Present: strength equal bilaterally - Psychiatric Psychiatric: Present: A&O x's 3, appropriate affect, intact judgment & insight - Labs CBC & Chem 7: 08/04/22 06:59 08/03/22 04:55 Labs: Abnormal Lab Results - Last 24 Hours (Table) 08/03/22 Range/Units 04:55 ESR 87 H (0-20) mm/Hr - Imaging and Cardiology scrotal ultrasound reviewed Assessment and Plan (1) Leukocytosis Current Visit: Yes Status: Acute Priority: Medium Code(s): D72.829 - ELEVATED WHITE BLOOD CELL COUNT, UNSPECIFIED SNOMED Code(s): 829526809 (2) Thrombocytosis Current Visit: Yes Status: Acute Priority: Medium Code(s): D75.839 - THROMBOCYTOSIS, UNSPECIFIED SNOMED Code(s): 0398526 (3) Anemia Current Visit: Yes Status: Acute Priority: Medium Code(s): D64.9 - ANEMIA, UNSPECIFIED SNOMED Code(s): 398775788 (4) Testicular pain Current Visit: Yes Status: Acute Code(s): N50.819 - TESTICULAR PAIN, UNSPECIFIED SNOMED Code(s): 55882439 Plan: Thrombocytosis/Leukocytosis: -Thrombocytosis/Leukocytosis present on previous admission on 07/23/22. WBC 21, platelets 1033 -Thrombocytosis and leukocytosis could be reactive due to acute condition with underling age related bone marrow suppression vs MPN -Anemia workup from admission on 07/23 revealed iron 13, iron sat 8%, and ferritin 1224. Repeat ferritin 1421. Vitamin B12 and folate normal. -MPN workup negative. BCR-ABL inconclusive. Will repeat test in outpatient setting -Will hold aspirin at this time, due to concern for acute GI bleed -Follow up in clinic with Dr. Karen Peralta is scheduled for 08/06 for further evaluation/workup, however will likely have to reschedule pending hospitalization Anemia: -Recent anemia workup negative -Reports recent dark colored stool, last colonoscopy 2-[address] Nair, normal per pt -CBC consistent with normocytic normochromic anemia -Surgery consulted for evaluation for colonoscopy/EGD. Plan for colonoscopy/EGD once pt recovers Testicular pain: -Urology consulted -Repeat scrotal ultrasound revealed poor vascular flow within the left testicle. Venous flow is identified. No definite arterial flow. Vascular flow is diminished compared to the right, consider partial torsion -Urology plans for conservative management at this time, with possible orchiectomy
[2022-08-04 15:01] LABS: Erythrocyte Sedimentation Rate 68 mm/Hr (0-20)
--- NOTE | 2022-08-04 15:35 | P.PN ---
Subjective Progress Note Date: 08/04/22 CHIEF COMPLAINT: Testicular pain HISTORY OF PRESENT ILLNESS: Surgical service on consult for anemia. Patient hospitalized with testicular pain and followed by urology. Patient denies any abdominal pain. Reports brown stools. Denies any nausea or vomiting. Hemoglobin did drop slightly from 8.2-7.8. WBC is 20 platelets 1079 PHYSICAL EXAM: VITAL SIGNS: Reviewed. GENERAL: Well-developed in no acute distress. HEENT: No sclera icterus. Extraocular movements grossly intact. Moist buccal mucosa. Head is atraumatic, normocephalic. ABDOMEN: Soft. Nondistended. Nontender. NEUROLOGIC: Alert and oriented. Cranial nerves II through XII grossly intact. ASSESSMENT: 1. Anemia with recent dark-colored stools 2. Testicular pain followed by urology PLAN: -Recommend EGD and colonoscopy when medically stable. Endoscopies can be completed outpatient Physician Loading Rack Supervisor note has been reviewed by physician. Signing provider agrees with the documented findings, assessment, and plan of care. Objective - Vital Signs Vital signs: Vital Signs Temp 97.8 F 08/04/22 07:14 Pulse 84 08/04/22 07:14 Resp 16 08/04/22 07:14 BP 123/62 08/04/22 07:14 Pulse Ox 97 08/04/22 07:14 FiO2 Intake & Output 08/03/22 08/04/22 08/04/22 18:59 06:59 18:59 Intake Total 240 Output Total 200 Balance 240 -200 Intake: Oral 240 Output: Urine 200 Other: Voiding Method Toilet Toilet Urinal Urinal # Voids 1 1 # Bowel Movements 1 - Labs CBC & Chem 7: 08/04/22 06:59 08/03/22 04:55 Labs: Abnormal Lab Results - Last 24 Hours (Table) 08/03/22 08/04/22 08/04/22 Range/Units 04:55 06:59 06:59 WBC 20.07 H (4.50-10.00) X 10*3/uL RBC 2.60 L (4.40-5.60) X 10*6/uL Hgb 7.8 L (13.0-17.0) g/dL Hct 26.1 L (39.6-50.0) % MCV 100.4 H (80.0-97.0) fL MCHC 29.9 L (32.0-37.0) g/dL RDW 14.9 H (11.5-14.5) % Plt Count 1079 H* (140-440) X 10*3/uL ESR 87 H 68 H (0-20) mm/Hr Ferritin 1181.0 H (22.0-322.0) ng/mL C-Reactive Protein 24.80 H (0.00-0.80) mg/dL
[2022-08-04 15:57] LABS: African American GFR (CKD) 68.6 (60.0-200.0); Albumin 2.6 g/dL (3.8-4.9); Albumin/Globulin Ratio 0.84 (1.60-3.17); Anion Gap 13.5 mmol/L (10.00-18.00); BUN/Creat Ratio 35.73 Ratio (12.00-20.00); Blood Urea Nitrogen 39.3 mg/dL (9.0-27.0); Calcium 9.2 mg/dL (8.7-10.3); Carbon Dioxide 29.5 mmol/L (20.0-27.5); Globulin 3.1 g/dL (1.6-3.3); Non-African American GFR(CKD) 59.2 (60.0-200.0); Total Bilirubin 0.2 mg/dL (0.30-1.20); Total Protein 5.7 g/dL (6.2-8.2)
[2022-08-04] MEDS: FAMOTIDINE 20 MG TAB PO SCH (21:38)
[2022-08-04] MEDS: PRAVASTATIN SODIUM 40 MG TAB PO SCH (21:39)
[2022-08-05 04:53] LABS: HCT 24.3 % (39.0-53.0); HGB 7.5 gm/dL (13.0-17.5); Hypochromasia Slight; MCH 29.8 pg (25.0-35.0); MCHC 30.8 g/dL (31.0-37.0); MCV 96.6 fL (80.0-100.0); Mean Platelet Volume 7.3; Platelet Count 946 k/uL (150-450); RBC 2.52 m/uL (4.30-5.90); RDW 14.9 % (11.5-15.5)
[2022-08-05 05:11] LABS: ALT 50 U/L (4-49); AST 78 U/L (17-59); African American GFR (CKD) 79 (>60 ml/min/1.73 sqM); Albumin 2.3 g/dL (3.5-5.0); Albumin/Globulin Ratio 0.8; Alkaline Phosphatase 283 U/L (38-126); Anion Gap 9 mmol/L; Blood Urea Nitrogen 39 mg/dL (9-20); Calcium 8.3 mg/dL (8.4-10.2); Carbon Dioxide 30 mmol/L (22-30); Chloride 100 mmol/L (98-107); Globulin 2.8 g/dL; Glucose 131 mg/dL (74-99); Non-African American GFR(CKD) 69 (>60 ml/min/1.73 sqM); Potassium 3.9 mmol/L (3.5-5.1); Sodium 139 mmol/L (137-145); Total Bilirubin 0.3 mg/dL (0.2-1.3); Total Protein 5.1 g/dL (6.3-8.2)
[2022-08-05] MEDS: ASPIRIN 81 MG PO SCH (08:50)
[2022-08-05] MEDS: HEPARIN SODIUM,PORCINE/PF 5,000 UNIT/0.5 ML SYRINGE SQ SCH (08:50)
[2022-08-05] MEDS: HYDROXYUREA 500 MG CAP PO SCH (08:50)
[2022-08-05] MEDS: METOPROLOL TARTRATE 25 MG TAB PO SCH ×2 (08:50→20:13)
[2022-08-05] MEDS: allopurinoL 100 MG TAB PO SCH (08:50)
--- NOTE | 2022-08-05 11:02 | P.PN ---
Subjective Progress Note Date: 08/05/22 CHIEF COMPLAINT: Testicular pain HISTORY OF PRESENT ILLNESS: Surgical service on consult for anemia. Patient hospitalized with testicular pain and followed by urology. Patient is sleeping comfortable. No new complaints. Hemoglobin is 7.5. Medicine service is working on discharging patient possibly today. Afebrile. WBC is down from 20- 15 platelets 946. PHYSICAL EXAM: VITAL SIGNS: Reviewed. GENERAL: Well-developed in no acute distress. HEENT: No sclera icterus. Extraocular movements grossly intact. Moist buccal mucosa. Head is atraumatic, normocephalic. ABDOMEN: Soft. Nondistended. Nontender. NEUROLOGIC: Alert and oriented. Cranial nerves II through XII grossly intact. ASSESSMENT: 1. Anemia with recent dark-colored stools at home 2. Testicular pain followed by urology PLAN: -Patient can be discharged from surgical standpoint and recommend outpatient EGD and colonoscopy Physician De Alcholizer note has been reviewed by physician. Signing provider agrees with the documented findings, assessment, and plan of care. Objective - Vital Signs Vital signs: Vital Signs Temp 98.1 F 08/05/22 08:00 Pulse 93 08/05/22 08:00 Resp 16 08/05/22 08:00 BP 109/61 08/05/22 08:00 Pulse Ox 93 L 08/05/22 08:00 FiO2 Intake & Output 08/04/22 08/05/22 08/05/22 18:59 06:59 18:59 Intake Total 1080 Balance 1080 Intake: Oral 1080 Other: # Voids 1 1 # Bowel Movements 1 - Labs CBC & Chem 7: 08/05/22 04:35 08/05/22 04:35 Labs: Abnormal Lab Results - Last 24 Hours (Table) 08/04/22 08/04/22 08/05/22 Range/Units 06:59 06:59 04:35 WBC 20.07 H 15.0 H (4.50-10.00) X 10*3/uL RBC 2.60 L 2.52 L (4.40-5.60) X 10*6/uL Hgb 7.8 L 7.5 L (13.0-17.0) g/dL Hct 26.1 L 24.3 L (39.6-50.0) % MCV 100.4 H (80.0-97.0) fL MCHC 29.9 L 30.8 L (32.0-37.0) g/dL RDW 14.9 H (11.5-14.5) % Plt Count 1079 H* 946 H (140-440) X 10*3/uL ESR 68 H (0-20) mm/Hr Carbon Dioxide 29.5 H (20.0-27.5) mmol/L BUN 39.3 H (9.0-27.0) mg/dL Est GFR (CKD-EPI)NonAf 59.2 L (60.0-200.0) BUN/Creatinine Ratio 35.73 H (12.00-20.00) Ratio Glucose 141 H (70-110) mg/dL Calcium (8.4-10.2) mg/dL Ferritin 1181.0 H (22.0-322.0) ng/mL Total Bilirubin 0.20 L (0.30-1.20) mg/dL AST 51 H (14-35) U/L ALT (4-49) U/L Alkaline Phosphatase 275 H (41-126) U/L C-Reactive Protein 24.80 H (0.00-0.80) mg/dL Total Protein 5.7 L (6.2-8.2) g/dL Albumin 2.6 L (3.8-4.9) g/dL Albumin/Globulin Ratio 0.84 L (1.60-3.17) g/dL / Range/Units 04:35 WBC (4.50-10.00) X 10*3/uL RBC (4.40-5.60) X 10*6/uL Hgb (13.0-17.0) g/dL Hct (39.6-50.0) % MCV (80.0-97.0) fL MCHC (32.0-37.0) g/dL RDW (11.5-14.5) % Plt Count (140-440) X 10*3/uL ESR (0-20) mm/Hr Carbon Dioxide (20.0-27.5) mmol/L BUN 39 H (9.0-27.0) mg/dL Est GFR (CKD-EPI)NonAf (60.0-200.0) BUN/Creatinine Ratio (12.00-20.00) Ratio Glucose 131 H (70-110) mg/dL Calcium 8.3 L (8.4-10.2) mg/dL Ferritin (22.0-322.0) ng/mL Total Bilirubin (0.30-1.20) mg/dL AST 78 H (14-35) U/L ALT 50 H (4-49) U/L Alkaline Phosphatase 283 H (41-126) U/L C-Reactive Protein (0.00-0.80) mg/dL Total Protein 5.1 L (6.2-8.2) g/dL Albumin 2.3 L (3.8-4.9) g/dL Albumin/Globulin Ratio (1.60-3.17) g/dL
--- NOTE | 2022-08-05 12:21 | P.PN ---
Subjective Progress Note Date: 08/05/22 Principal diagnosis: Left orchialgia The patient is an 87-year-old white male with thrombocytosis. He has experienced intermittent left orchialgia, presumed to be due to testicular ischemia. Scrotal ultrasound with Doppler showed diminished arterial inflow to the left testicle. The patient states that his pain continues to gradually improve. Objective - Vital Signs Vital signs: Vital Signs Temp 97.6 F 08/05/22 01:07 Pulse 100 08/05/22 01:07 Resp 18 08/05/22 01:07 BP 117/72 08/05/22 01:07 Pulse Ox 97 08/05/22 01:07 FiO2 Intake & Output 08/04/22 08/04/22 08/05/22 06:59 18:59 06:59 Intake Total 1080 Output Total 200 Balance -200 1080 Intake: Oral 1080 Output: Urine 200 Other: Voiding Method Toilet Urinal # Voids 1 1 1 # Bowel Movements 1 1 - Constitutional General appearance: Present: average body habitus, no acute distress - Genitourinary Genitourinary Comment(s): Normal phallus, normal urethral meatus. The scrotum is normal. The right testicle is normal. The left testicle is slightly larger than the right, s omewhat firm and tender to palpation. - Psychiatric Psychiatric: Present: A&O x's 3 - Labs CBC & Chem 7: 08/05/22 04:35 08/05/22 04:35 Labs: Abnormal Lab Results - Last 24 Hours (Table) 08/04/22 08/04/22 08/05/22 Range/Units 06:59 06:59 04:35 WBC 20.07 H 15.0 H (4.50-10.00) X 10*3/uL RBC 2.60 L 2.52 L (4.40-5.60) X 10*6/uL Hgb 7.8 L 7.5 L (13.0-17.0) g/dL Hct 26.1 L 24.3 L (39.6-50.0) % MCV 100.4 H (80.0-97.0) fL MCHC 29.9 L 30.8 L (32.0-37.0) g/dL RDW 14.9 H (11.5-14.5) % Plt Count 1079 H* 946 H (140-440) X 10*3/uL ESR 68 H (0-20) mm/Hr Carbon Dioxide 29.5 H (20.0-27.5) mmol/L BUN 39.3 H (9.0-27.0) mg/dL Est GFR (CKD-EPI)NonAf 59.2 L (60.0-200.0) BUN/Creatinine Ratio 35.73 H (12.00-20.00) Ratio Glucose 141 H (70-110) mg/dL Calcium (8.4-10.2) mg/dL Ferritin 1181.0 H (22.0-322.0) ng/mL Total Bilirubin 0.20 L (0.30-1.20) mg/dL AST 51 H (14-35) U/L ALT (4-49) U/L Alkaline Phosphatase 275 H (41-126) U/L C-Reactive Protein 24.80 H (0.00-0.80) mg/dL Total Protein 5.7 L (6.2-8.2) g/dL Albumin 2.6 L (3.8-4.9) g/dL Albumin/Globulin Ratio 0.84 L (1.60-3.17) g/dL / Range/Units 04:35 WBC (4.50-10.00) X 10*3/uL RBC (4.40-5.60) X 10*6/uL Hgb (13.0-17.0) g/dL Hct (39.6-50.0) % MCV (80.0-97.0) fL MCHC (32.0-37.0) g/dL RDW (11.5-14.5) % Plt Count (140-440) X 10*3/uL ESR (0-20) mm/Hr Carbon Dioxide (20.0-27.5) mmol/L BUN 39 H (9.0-27.0) mg/dL Est GFR (CKD-EPI)NonAf (60.0-200.0) BUN/Creatinine Ratio (12.00-20.00) Ratio Glucose 131 H (70-110) mg/dL Calcium 8.3 L (8.4-10.2) mg/dL Ferritin (22.0-322.0) ng/mL Total Bilirubin (0.30-1.20) mg/dL AST 78 H (14-35) U/L ALT 50 H (4-49) U/L Alkaline Phosphatase 283 H (41-126) U/L C-Reactive Protein (0.00-0.80) mg/dL Total Protein 5.1 L (6.2-8.2) g/dL Albumin 2.3 L (3.8-4.9) g/dL Albumin/Globulin Ratio (1.60-3.17) g/dL Assessment and Plan Assessment: It is felt that the patient's orchalgia is ischemic in nature, secondary to thrombocytosis. He is symptomatically improved. (1) Testicular pain Current Visit: Yes Status: Acute Code(s): N50.819 - TESTICULAR PAIN, UNSPECIFIED SNOMED Code(s): 20966003 Plan: If the patient develops complete testicular infarct, he may require a left orchiectomy. However, I remained hopeful that he can continue to be managed conservatively and would consider an orchiectomy only for intractable symptoms.
--- NOTE | 2022-08-05 13:55 | P.PN ---
Subjective Progress Note Date: 08/05/22 Principal diagnosis: thrombocytosis At today's visit patient is resting comfortably in bed. He is reporting improvement in left testicular pain. Repeat scrotal US revealed poor vascular flow within the left testicle. Venous flow is identified. No definite arterial flow. Vascular flow is diminished compared to the right, consider partial torsion. Urology following, plan to manage conservatiley with possible orchiectomy. Platelets and leukocytes improving, 946,000 and 15,000 today respectively. Objective - Vital Signs Vital signs: Vital Signs Temp 98.1 F 08/05/22 08:00 Pulse 93 08/05/22 08:00 Resp 16 08/05/22 08:00 BP 109/61 08/05/22 08:00 Pulse Ox 93 L 08/05/22 08:00 FiO2 Intake & Output 08/04/22 08/05/22 08/05/22 18:59 06:59 18:59 Intake Total 1080 Balance 1080 Intake: Oral 1080 Other: # Voids 1 1 # Bowel Movements 1 - Constitutional General appearance: Present: average body habitus, no acute distress - EENT Eyes: Present: anicteric sclerae, EOMI ENT: Present: hearing grossly normal - Respiratory Details: breathing is even and unlabored - Cardiovascular Details: skin warm and dry - Gastrointestinal General gastrointestinal: Absent: tenderness - Integumentary Integumentary: Present: pale - Neurologic Neurologic Comment(s): grossly intact - Musculoskeletal Musculoskeletal: Present: strength equal bilaterally - Psychiatric Psychiatric: Present: A&O x's 3, appropriate affect, intact judgment & insight - Labs CBC & Chem 7: 08/05/22 04:35 08/05/22 04:35 Labs: Abnormal Lab Results - Last 24 Hours (Table) 08/04/22 08/04/22 08/05/22 Range/Units 06:59 06:59 04:35 WBC 20.07 H 15.0 H (4.50-10.00) X 10*3/uL RBC 2.60 L 2.52 L (4.40-5.60) X 10*6/uL Hgb 7.8 L 7.5 L (13.0-17.0) g/dL Hct 26.1 L 24.3 L (39.6-50.0) % MCV 100.4 H (80.0-97.0) fL MCHC 29.9 L 30.8 L (32.0-37.0) g/dL RDW 14.9 H (11.5-14.5) % Plt Count 1079 H* 946 H (140-440) X 10*3/uL ESR 68 H (0-20) mm/Hr Carbon Dioxide 29.5 H (20.0-27.5) mmol/L BUN 39.3 H (9.0-27.0) mg/dL Est GFR (CKD-EPI)NonAf 59.2 L (60.0-200.0) BUN/Creatinine Ratio 35.73 H (12.00-20.00) Ratio Glucose 141 H (70-110) mg/dL Calcium (8.4-10.2) mg/dL Ferritin 1181.0 H (22.0-322.0) ng/mL Total Bilirubin 0.20 L (0.30-1.20) mg/dL AST 51 H (14-35) U/L ALT (4-49) U/L Alkaline Phosphatase 275 H (41-126) U/L C-Reactive Protein 24.80 H (0.00-0.80) mg/dL Total Protein 5.7 L (6.2-8.2) g/dL Albumin 2.6 L (3.8-4.9) g/dL Albumin/Globulin Ratio 0.84 L (1.60-3.17) g/dL 08/05/22 Range/Units 04:35 WBC (4.50-10.00) X 10*3/uL RBC (4.40-5.60) X 10*6/uL Hgb (13.0-17.0) g/dL Hct (39.6-50.0) % MCV (80.0-97.0) fL MCHC (32.0-37.0) g/dL RDW (11.5-14.5) % Plt Count (140-440) X 10*3/uL ESR (0-20) mm/Hr Carbon Dioxide (20.0-27.5) mmol/L BUN 39 H (9.0-27.0) mg/dL Est GFR (CKD-EPI)NonAf (60.0-200.0) BUN/Creatinine Ratio (12.00-20.00) Ratio Glucose 131 H (70-110) mg/dL Calcium 8.3 L (8.4-10.2) mg/dL Ferritin (22.0-322.0) ng/mL Total Bilirubin (0.30-1.20) mg/dL AST 78 H (14-35) U/L ALT 50 H (4-49) U/L Alkaline Phosphatase 283 H (41-126) U/L C-Reactive Protein (0.00-0.80) mg/dL Total Protein 5.1 L (6.2-8.2) g/dL Albumin 2.3 L (3.8-4.9) g/dL Albumin/Globulin Ratio (1.60-3.17) g/dL Assessment and Plan (1) Leukocytosis Current Visit: Yes Status: Acute Priority: Medium Code(s): D72.829 - ELEVA EDILMA WHITE BLOOD CELL COUNT, UNSPECIFIED SNOMED Code(s): 381751534 (2) Thrombocytosis Current Visit: Yes Status: Acute Priority: Medium Code(s): D75.839 - THROMBOCYTOSIS, UNSPECIFIED SNOMED Code(s): 0044964 (3) Anemia Current Visit: Yes Status: Acute Priority: Medium Code(s): D64.9 - ANEMIA, UNSPECIFIED SNOMED Code(s): 276935824 (4) Testicular pain Current Visit: Yes Status: Acute Code(s): N50.819 - TESTICULAR PAIN, UNSPECIFIED SNOMED Code(s): 89591667 Plan: Thrombocytosis/Leukocytosis: -Thrombocytosis/Leukocytosis present on previous admission on 07/23/22. Platelets and leukocytes improving, 946,000 and 15,000 today respectively. -Thrombocytosis and leukocytosis could be reactive due to acute condition with underling age related bone marrow suppression vs MPN -Anemia workup from admission on 07/23 revealed iron 13, iron sat 8%, and ferritin 1224. Repeat ferritin 1421. Vitamin B12 and folate normal. -MPN workup negative. BCR-ABL inconclusive. Will repeat test in outpatient setting -Will hold aspirin at this time, due to concern for acute GI bleed -Follow up in clinic with Dr. Karen Peralta is scheduled for 08/06 for further evaluation/workup, however apt will be rescheduled due to hospitalization Anemia: -Recent anemia workup negative -Reports recent dark colored stool, last colonoscopy 2-[address] Nair, normal per pt -CBC consistent with normocytic normochromic anemia -Surgery consulted for evaluation for colonoscopy/EGD. Plan for colonoscopy/EGD once pt recovers -Hemoglobin 7.5 today, please transfuse for hemoglobin less than 7 Testicular pain: -Urology consulted -Repeat scrotal ultrasound revealed poor vascular flow within the left testicle. Venous flow is identified. No definite arterial flow. Vascular flow is diminished compared to the right, consider partial torsion -He is reporting improvement in left testicular pain. Urology plans for conservative management at this time, with possible orchiectomy
--- NOTE | 2022-08-05 14:10 | P.PN ---
Subjective Progress Note Date: 08/05/22 Hospital course: Patient is a very pleasant 87-year-old male with a past medical history of CAD status post CABG, hypertension, hyperlipidemia, GERD, and gout. He presented to the emergency department with a chief complaint of testicular pain. Patient reported severe scrotal pain and urinary frequency with dysuria beginning approximately one hour prior to arrival and aggressively worsening. He underwent full evaluation. Labs completed and reviewed. CBC revealing severe leukocytosis with WBC count of 20.1, normocytic anemia with hemoglobin of 8.8, severe thrombocytosis with platelet count of 1116. BMP revealing hypochloremia with chloride of 96 and an acute kidney injury with BUN of 50, creatinine 1.50, and GFR of 41 with baseline creatinine levels of 1. Lactic acid was 1.6. Liver profile revealing elevated alkaline phosphatase of 214. Urinalysis was negative for blood, protein, ketones, or infection. CT abdomen and pelvis was completed in radiology report reviewed showing prostamegaly and coronary calcifications with enlarged ascending aorta measuring up to 4.7 cm stating no acute process. Scrotal ultrasound completed showing satisfactory blood flow to bilateral test icles. Patient was admitted under services of consultation to urology and hematology. Repeat scrotal ultrasound completed on 07/31/22 revealing again no evidence for testicular mass and color-flow present within both testicles with slightly decreased appearance on the left testicle, radiology report stating cannot entirely exclude torsion/detorsion however reports appropriate arterial and venous blood flow to bilateral testicles. Urology evaluated and reviewed documentation in chart urology concerning left testicular pain and induration of indeterminate etiology concerning for infection versus infarct recommending continue current antibiotics and will continue to follow along. Infectious d isease also following changing antibiotics from Levaquin to Rocephin 2 g daily. Patient's carotid ultrasound showed no definite arterial flow concerning for partial torsion. Patient seen by urology who believed that patient's testicular pain due to ischemia from thrombocytosis. I discussed with infectious disease will agree so antibiotics will be discontinued Patient was seen this morning. He states that he does not have any testicular pain. However he does admit to tenderness on palpation of his testicle. Patient does state that his stool is dark colored. Physical exam: General examination - Alert and Oriented 3 in NAD, appears chronically debilitated Heart - + S1S2 no murmurs Lungs - Clear to auscultation Abdomen soft NT ND +ve BS Extremities - No edema : Tenderness to palpate of the testicle PRESS ASSISTANT AND FEEDER - Moving all 4 extremities spontaneously Psych - Calm and cooperative Assessment Vital signs reviewed and are stable Data reviewed: Patient's platelets improved from 1079 to 146. Patient's WBC decreased from 20.07 to 15. Hemoglobin relatively stable in the 7 range. Left testicular pain secondary to ischemia from likely thrombocytosis Acute blood loss anemia Severe thrombocytosis, possibly reactive Severe leukocytosis, possibly reactive Acute kidney injury, improving Prostamegaly noted on CT Hypomagnesemia, resolved Hypokalemia Elevated inflammatory markers History of coronary disease status post CABG Hypertension Hyperlipidemia Plan I spoke with radiology this morning. Per neurology orchiectomy is only indicated if patient has intractable pain. Patient currently denying any pain I spoke with general surgery. Per general surgery since hemoglobin is stable patient can get outpatient EGD and colonoscopy. Hemoglobin is stable this morning I reviewed note from hematology. Patient to follow up outpatient for further workup of thrombocytosis and leukocytosis Continue with metoprolol 50 mg twice a day and pravastatin 40 mg daily Patient says that he lives alone and doesn't feel comfortable going home. We'll consult PT OT Anticipated discharge: Patient medically stable for discharge Anticipated discharge place: [facility] facility versus home with home care Objective - Vital Signs Vital signs: Vital Signs Temp 98.1 F 08/05/22 08:00 Pulse 93 08/05/22 08:00 Resp 16 08/05/22 08:00 BP 109/61 08/05/22 08:00 Pulse Ox 93 L 08/05/22 08:00 FiO2 Intake & Output 08/04/22 08/05/22 08/05/22 18:59 06:59 18:59 Intake Total 1080 Balance 1080 Intake: Oral 1080 Other: # Voids 1 1 # Bowel Movements 1 - Labs CBC & Chem 7: 08/05/22 04:35 08/05/22 04:35 Labs: Abnormal Lab Results - Last 24 Hours (Table) 08/04/22 08/04/22 08/05/22 Range/Units 06:59 06:59 04:35 WBC 20.07 H 15.0 H (4.50-10.00) X 10*3/uL RBC 2.60 L 2.52 L (4.40-5.60) X 10*6/uL Hgb 7.8 L 7.5 L (13.0-17.0) g/dL Hct 26.1 L 24.3 L (39.6-50.0) % MCV 100.4 H (80.0-97.0) fL MCHC 29.9 L 30.8 L (32.0-37.0) g/dL RDW 14.9 H (11.5-14.5) % Plt Count 1079 H* 946 H (140-440) X 10*3/uL ESR 68 H (0-20) mm/Hr Carbon Dioxide 29.5 H (20.0-27.5) mmol/L BUN 39.3 H (9.0-27.0) mg/dL Est GFR (CKD-EPI)NonAf 59.2 L (60.0-200.0) BUN/Creatinine Ratio 35.73 H (12.00-20.00) Ratio Glucose 141 H (70-110) mg/dL Calcium (8.4-10.2) mg/dL Ferritin 1181.0 H (22.0-322.0) ng/mL Total Bilirubin 0.20 L (0.30-1.20) mg/dL AST 51 H (14-35) U/L ALT (4-49) U/L Alkaline Phosphatase 275 H (41-126) U/L C-Reactive Protein 24.80 H (0.00-0.80) mg/dL Total Protein 5.7 L (6.2-8.2) g/dL Albumin 2.6 L (3.8-4.9) g/dL Albumin/Globulin Ratio 0.84 L (1.60-3.17) g/dL 08/05/22 Range/Units 04:35 WBC (4.50-10.00) X 10*3/uL RBC (4.40-5.60) X 10*6/uL Hgb (13.0-17.0) g/dL Hct (39.6-50.0) % MCV (80.0-97.0) fL MCHC (32.0-37.0) g/dL RDW (11.5-14.5) % Plt Count (140-440) X 10*3/uL ESR (0-20) mm/Hr Carbon Dioxide (20.0-27.5) mmol/L BUN 39 H (9.0-27.0) mg/dL Est GFR (CKD-EPI)NonAf (60.0-200.0) BUN/Creatinine Ratio (12.00-20.00) Ratio Glucose 131 H (70-110) mg/dL Calcium 8.3 L (8.4-10.2) mg/dL Ferritin (22.0-322.0) ng/mL Total Bilirubin (0.30-1.20) mg/dL AST 78 H (14-35) U/L ALT 50 H (4-49) U/L Alkaline Phosphatase 283 H (41-126) U/L C-Reactive Protein (0.00-0.80) mg/dL Total Protein 5.1 L (6.2-8.2) g/dL Albumin 2.3 L (3.8-4.9) g/dL Albumin/Globulin Ratio (1.60-3.17) g/dL
[2022-08-05] MEDS: PRAVASTATIN SODIUM 40 MG TAB PO SCH (20:13)
[2022-08-05] MEDS: FAMOTIDINE 20 MG TAB PO SCH (20:13)
[2022-08-06] MEDS: ASPIRIN 81 MG PO SCH (08:58)
[2022-08-06] MEDS: allopurinoL 100 MG TAB PO SCH (08:58)
[2022-08-06] MEDS: METOPROLOL TARTRATE 25 MG TAB PO SCH ×2 (08:58→21:24)
[2022-08-06] MEDS: HYDROXYUREA 500 MG CAP PO SCH (08:58)
[2022-08-06 08:59] LABS: Basophils % (A) 0 %; Eosinophils # (A) 1.1 k/uL (0-0.7); Eosinophils % (A) 7 %; HGB 8.6 gm/dL (13.0-17.5); Hypochromasia Marked; Lymphocytes # (A) 1.3 k/uL (1.0-4.8); Lymphocytes % (A) 8 %; MCHC 30.8 g/dL (31.0-37.0); MCV 97.6 fL (80.0-100.0); Monocytes # (A) 0.9 k/uL (0-1.0); Monocytes % (A) 5 %; Neutrophils # (A) 13.3 k/uL (1.3-7.7); Neutrophils % (A) 78 %; RBC 2.87 m/uL (4.30-5.90); RDW 14.9 % (11.5-15.5); WBC 17.1 k/uL (3.8-10.6)
[2022-08-06 09:24] LABS: Platelet Count 1092 k/uL (150-450)
--- NOTE | 2022-08-06 13:19 | P.PN ---
Subjective Progress Note Date: 08/06/22 Principal diagnosis: thrombocytosis At today's visit patient is resting comfortably in bed. He reports continued improvement in left testicular pain. Urology following, plan to manage conservatively with possible orchiectomy. Platelets 1092, WBC 17.1. Afebrile Objective - Vital Signs Vital signs: Vital Signs Temp 98.8 F 08/06/22 07:18 Pulse 84 08/06/22 07:18 Resp 17 08/06/22 07:18 BP 112/64 08/06/22 07:18 Pulse Ox 96 08/06/22 07:18 FiO2 Intake & Output 08/05/22 08/06/22 08/06/22 18:59 06:59 18:59 Other: # Voids 3 # Bowel Movements 3 1 - Constitutional General appearance: Present: average body habitus, no acute distress - EENT Eyes: Present: anicteric sclerae, EOMI ENT: Present: hearing grossly normal - Respiratory Details: breathing is even and unlabored - Cardiovascular Details: skin warm and dry - Gastrointestinal General gastrointestinal: Present: soft. Absent: tenderness - Genitourinary Genitourinary Comment(s): no testicular tenderness on palpation, but reports pressure - Integumentary Integumentary: Present: pale - Neurologic Neurologic Comment(s): grossly intact - Musculoskeletal Musculoskeletal: Present: strength equal bilaterally - Psychiatric Psychiatric: Present: A&O x's 3, appropriate affect, intact judgment & insight - Labs CBC & Chem 7: 08/06/22 08:16 08/05/22 04:35 Labs: Abnormal Lab Results - Last 24 Hours (Table) 08/06/22 Range/Units 08:16 WBC 17.1 H (3.8-10.6) k/uL RBC 2.87 L (4.30-5.90) m/uL Hgb 8.6 L (13.0-17.5) gm/dL Hct 28.0 L (39.0-53.0) % MCHC 30.8 L (31.0-37.0) g/dL Plt Count 1092 H* (150-450) k/uL Neutrophils # 13.3 H (1.3-7.7) k/uL Eosinophils # 1.1 H (0-0.7) k/uL Assessment and Plan (1) Leukocytosis Current Visit: Yes Status: Acute Priority: Medium Code(s): D72.829 - ELEVATED WHITE BLOOD CELL COUNT, UNSPECIFIED SNOMED Code(s): 911721382 (2) Thrombocytosis Current Visit: Yes Status: Acute Priority: Medium Code(s): D75.839 - THROMBOCYTOSIS, UNSPECIFIED SNOMED Code(s): 8808024 (3) Anemia Current Visit: Yes Status: Acute Priority: Medium Code(s): D64.9 - ANEMIA, UNSPECIFIED SNOMED Code(s): 556259565 (4) Testicular pain Current Visit: Yes Status: Acute Code(s): N50.819 - TESTICULAR PAIN, UNSPECIFIED SNOMED Code(s): 77663267 Plan: Thrombocytosis/Leukocytosis: -Thrombocytosis/Leukocytosis present on previous admission on 07/23/22. Platelets and leukocytes have shown improvement, but increased today, 1092 and 17.1 respectively. -Thrombocytosis and leukocytosis could be reactive due to acute condition with underling age related bone marrow suppression vs MPN -Anemia workup from admission on 07/23 revealed iron 13, iron sat 8%, and ferritin 1224. Repeat ferritin 1421. Vitamin B12 and folate normal. -MPN workup negative. BCR-ABL inconclusive. Will repeat test in outpatient setting -81 mg aspirin daily. Will monitor CBC weekly in outpatient setting as there are concerns for GI bleed -Follow up in clinic with Dr. Karen Peralta was scheduled for 08/06 for further evaluation/workup, however apt will be rescheduled upon discharge Anemia: -Recent anemia workup negative -Reported dark colored stools, now resolved. Last colonoscopy 2-[address] Nair, normal per pt -CBC consistent with normocytic normochromic anemia -Surgery consulted for evaluation for colonoscopy/EGD. Plan for colonoscopy/EGD outpatient once pt recovers -Hemoglobin 8.6 today, please transfuse for hemoglobin less than 7 Testicular pain: -Urology consulted -Repeat scrotal ultrasound revealed poor vascular flow within the left testicle. Venous flow is identified. No definite arterial flow. Vascular flow is diminished compared to the right, consider partial torsion -He is reporting improvement in left testicular pain. Urology plans for conservative management at this time, with possible orchiectomy Dr attests: I have performed H&P and developed impression and plan of care for patient, discussed with dictator. I agree with dictated note, documented as a scribe
[2022-08-06 13:23] VITALS: BMI 22.4
--- NOTE | 2022-08-06 14:21 | P.PN ---
Subjective Progress Note Date: 08/06/22 Hospital Course: Patient is a very pleasant 87-year-old male with a past medical history of CAD status post CABG, hypertension, hyperlipidemia, GERD, and gout. He presented to the emergency department with a chief complaint of testicular pain. Patient reported severe scrotal pain and urinary frequency with dysuria beginning approximately one hour prior to arrival and aggressively worsening. He underwent full evaluation. Labs completed and reviewed. CBC revealing severe leukocytosis with WBC count of 20.1, normocytic anemia with hemoglobin of 8.8, severe thrombocytosis with platelet count of 1116. BMP revealing hypochloremia with chloride of 96 and an acute kidney injury with BUN of 50, creatinine 1.50, and GFR of 41 with baseline creatinine levels of 1. Lactic acid was 1.6. Liver profile revealing elevated alkaline phosphatase of 214. Urinalysis was negative for blood, protein, ketones, or infection. CT abdomen and pelvis was completed in radiology report reviewed showing prostamegaly and coronary calcifications with enlarged ascending aorta measuring up to 4.7 cm stating no acute process. Scrotal ultrasound completed showing satisfactory blood flow to bilateral testicles. Patient was admitted under services of consultation to urology and hematology. Repeat scrotal ultrasound completed on 07/31/22 revealing again no evidence for testicular mass and color-flow present within both testicles with slightly decreased appearance on the left testicle, radiology report stating cannot entirely exclude torsion/detorsion however reports appropriate arterial and venous blood flow to bilateral testicles. Urology evaluated and reviewed documentation in chart urology concerning left testicular pain and induration of indeterminate etiology concerning for infection versus infarct recommending continue current antibiotics and will continue to follow along. Infectious disease also following changing antibiotics from Levaquin to Rocephin 2 g daily. Patient's ultrasound showed no definite arterial flow concerning for partial torsion. Patient seen by urology who believed that patient's testicular pain due to ischemia from thrombocytosis. Antibiotics discontinued. Subjective: Seen and examined at bedside. No acute events overnight. Denies any testicular pain at the moment. Pertinent positives and negatives as discussed above, a complete review of systems was performed and all other systems are negative. Vitals Signs Reviewed. General examination - Alert and Oriented 3 in NAD, appears chronically debilitated Heart - + S1S2 no murmurs Lungs - Clear to auscultation Abdomen soft NT ND +ve BS Extremities - No edema : Tenderness to palpate of the testicle CLOTH EDGE SINGER - Moving all 4 extremities spontaneously Psych - Calm and cooperative Data Reviewed Today: Pertinent Labs: WBC 17.1, hemoglobin 8.6, reticulocyte count 1092 Assessment and Plan: Left testicular pain secondary to ischemia from likely thrombocytosis Acute blood loss anemia Severe thrombocytosis, possibly reactive Severe leukocytosis, possibly reactive Acute kidney injury, improving Prostamegaly noted on CT Hypomagnesemia, resolved Hypokalemia, resolved Elevated inflammatory markers History of coronary disease status post CABG Hypertension Hyperlipidemia -Urology recommending conservative management at the moment, orchiectomy will be considered if intractable symptoms -Blood counts stable, and improving -Will need outpatient follow-up with surgery for EGD and colonoscopy -Outpatient follow-up with oncology, on aspirin and hydroxyurea -Pain control with oral [place] and IV Dilaudid -Possible discharge to nursing facility DVT ppx: SCDs Code status: Full code Anticipated discharge place: Home versus nursing facility Anticipated discharge time: If bed available Objective - Vital Signs Vital signs: Vital Signs Temp 98.8 F 08/06/22 07:18 Pulse 84 08/06/22 07:18 Resp 17 08/06/22 07:18 BP 112/64 08/06/22 07:18 Pulse Ox 96 08/06/22 07:18 FiO2 Intake & Output 08/05/22 08/06/22 08/06/22 18:59 06:59 18:59 Weight 70.76 kg Other: # Voids 3 # Bowel Movements 3 1 - Labs CBC & Chem 7: 08/06/22 08:16 08/05/22 04:35 Labs: Abnormal Lab Results - Last 24 Hours (Table) 08/06/22 Range/Units 08:16 WBC 17.1 H (3.8-10.6) k/uL RBC 2.87 L (4.30-5.90) m/uL Hgb 8.6 L (13.0-17.5) gm/dL Hct 28.0 L (39.0-53.0) % MCHC 30.8 L (31.0-37.0) g/dL Plt Count 1092 H* (150-450) k/uL Neutrophils # 13.3 H (1.3-7.7) k/uL Eosinophils # 1.1 H (0-0.7) k/uL
--- NOTE | 2022-08-06 15:04 | P.PN ---
Subjective Progress Note Date: 08/06/22 CHIEF COMPLAINT: Testicular pain HISTORY OF PRESENT ILLNESS: Surgical service on consult for anemia. Patient hospitalized with testicular pain and followed by urology. Patient is sleeping comfortable. No new complaints. Hemoglobin is 8.6. Medicine service is working on discharging patient possibly today. Afebrile. No active bleeding Patient seen and taken with Dr. renteria PHYSICAL EXAM: VITAL SIGNS: Reviewed. GENERAL: Well-developed in no acute distress. HEENT: No sclera icterus. Extraocular movements grossly intact. Moist buccal mucosa. Head is atraumatic, normocephalic. ABDOMEN: Soft. Nondistended. Nontender. NEUROLOGIC: Alert and oriented. Cranial nerves II through XII grossly intact. ASSESSMENT: 1. Anemia with recent dark-colored stools at home 2. Testicular pain followed by urology PLAN: -Patient can be discharged from surgical standpoint and recommend outpatient EGD and colonoscopy Physician Knife Setter Assembler note has been reviewed by physician. Signing provider agrees with the documented findings, assessment, and plan of care. Objective - Vital Signs Vital signs: Vital Signs Temp 98.8 F 08/06/22 07:18 Pulse 84 08/06/22 07:18 Resp 17 08/06/22 07:18 BP 112/64 08/06/22 07:18 Pulse Ox 96 08/06/22 07:18 FiO2 Intake & Output 08/05/22 08/06/22 08/06/22 18:59 06:59 18:59 Weight 70.76 kg Other: # Voids 3 # Bowel Movements 3 1 - Labs CBC & Chem 7: 08/06/22 08:16 08/05/22 04:35 Labs: Abnormal Lab Results - Last 24 Hours (Table) 08/06/22 Range/Units 08:16 WBC 17.1 H (3.8-10.6) k/uL RBC 2.87 L (4.30-5.90) m/uL Hgb 8.6 L (13.0-17.5) gm/dL Hct 28.0 L (39.0-53.0) % MCHC 30.8 L (31.0-37.0) g/dL Plt Count 1092 H* (150-450) k/uL Neutrophils # 13.3 H (1.3-7.7) k/uL Eosinophils # 1.1 H (0-0.7) k/uL
[2022-08-06] MEDS: PRAVASTATIN SODIUM 40 MG TAB PO SCH (21:24)
[2022-08-06] MEDS: FAMOTIDINE 20 MG TAB PO SCH (21:24)
[2022-08-06] MEDS: HYDROcodone/APAP 5-325MG 1 EACH TAB PO PRN (21:24)
[2022-08-07 02:16] VITALS: PULSE 91; TEMP 98.1
[2022-08-07 07:28] VITALS: BP 122/67; RESP 16
[2022-08-07] MEDS: ASPIRIN 81 MG PO SCH (08:00)
[2022-08-07] MEDS: METOPROLOL TARTRATE 25 MG TAB PO SCH (08:00)
[2022-08-07] MEDS: allopurinoL 100 MG TAB PO SCH (08:00)
[2022-08-07] MEDS: HYDROXYUREA 500 MG CAP PO SCH (08:00)
[2022-08-07 10:52] LABS: Basophils # (A) 0.07 X 10*3/uL (0.00-0.10); Basophils % (A) 0.3 %; Eosinophils # (A) 1.57 X 10*3/uL (0.04-0.35); Eosinophils % (A) 7.8 %; HCT 25.6 % (39.6-50.0); HGB 7.7 g/dL (13.0-17.0); Immature Grans, Automated 0.6 %; Lymphocytes # (A) 1.22 X 10*3/uL (0.90-5.00); Lymphocytes % (A) 6.1 %; MCH 29.6 pg (27.0-32.0); MCHC 30.1 g/dL (32.0-37.0); MCV 98.5 fL (80.0-97.0); Mean Platelet Volume 9.1 fL (9.5-12.2); Monocytes # (A) 1.99 X 10*3/uL (0.20-1.00); Monocytes % (A) 9.9 %; NRBC Per 100 WBC 0 /100 WBCS (0.0-0.0); Neutrophils # (A) 15.07 X 10*3/uL (1.80-7.70); Neutrophils % (A) 75.3 %; Platelet Count 911 X 10*3/uL (140-440); RDW 15.7 % (11.5-14.5); WBC 20.05 X 10*3/uL (4.50-10.00)
--- NOTE | 2022-08-07 13:32 | P.DS ---
Providers Date of admission: 07/30/22 20:21 Expected date of discharge: 08/07/22 Attending physician: Ozzie Smith MD Consults: 07/30/22 20:59 Consult Physician Urgent Consulting Provider: Gildardo Gould Consult Reason/Comments: Leukocytosis, thrombocytosis Do you want consulting provider notified?: Yes 07/31/22 02:43 Consult Physician Routine Consulting Provider: Jeremi Melendez Consult Reason/Comments: testicular pain Do you want consulting provider notified?: Yes, Notify in am 07/31/22 09:05 Consult Physician Routine Consulting Provider: Orion Salinas Consult Reason/Comments: Suspected epididymitis vs prostititis vs scrotal infarct Do you want consulting provider notified?: Yes 07/31/22 13:38 Consult Physician Routine Consulting Provider: Gaurang Watson Consult Reason/Comments: anemia, r/o GI bleed, recent dark stools Do you want consulting provider notified?: Yes 08/02/22 08:58 Consult Physician Routine Consulting Provider: Dale Massey Consult Reason/Comments: reports of frequent recurrent cardiac pauses Do you want consulting provider notified?: Yes Primary care physician: [facility] Hospital Course: Discharge Diagnosis: Left testicular pain secondary to ischemia from likely thrombocytosis Acute blood loss anemia Severe thrombocytosis, possibly reactive Severe leukocytosis, possibly reactive Acute kidney injury, improving Prostamegaly noted on CT Hypomagnesemia, resolved Hypokalemia, resolved Elevated inflammatory markers History of coronary disease status post CABG Hypertension Hyperlipidemia Hospital Course: Patient is a very pleasant 87-year-old male with a past medical history of CAD status post CABG, hypertension, hyperlipidemia, GERD, and gout. He presented to the emergency department with a chief complaint of testicular pain. Patient reported severe scrotal pain and urinary frequency with dysuria beginning approximately one hour prior to arrival and aggressively worsening. He underwent full evaluation. Labs completed and reviewed. CBC revealing severe leukocytosis with WBC count of 20.1, normocytic anemia with hemoglobin of 8.8, severe thrombocytosis with platelet count of 1116. BMP revealing hypochloremia with chloride of 96 and an acute kidney injury with BUN of 50, creatinine 1.50, and GFR of 41 with baseline creatinine levels of 1. Lactic acid was 1.6. Liver profile revealing elevated alkaline phosphatase of 214. Urinalysis was negative for blood, protein, ketones, or infection. CT abdomen and pelvis was completed in radiology report reviewed showing prostamegaly and coronary calcifications with enlarged ascending aorta measuring up to 4.7 cm stating no acute process. Scrotal ultrasound completed showing satisfactory blood flow to bilateral testicles. Patient was admitted under services of consultation to urology and hematology. Repeat scrotal ultrasound completed on 07/31/22 revealing again no evidence for testicular mass and color-flow present within both testicles with slightly decreased appearance on the left testicle, radiology report stating cannot entirely exclude torsion/detorsion however reports appropriate arterial and venous blood flow to bilateral testicles. Urology evaluated and concerning left testicular pain and induration of indeterminate etiology concerning for infection versus infarct recommending continue current antibiotics and will c ontinue to follow along. Infectious disease also following changing antibiotics from Levaquin to Rocephin 2 g daily. Patient's ultrasound showed no definite arterial flow concerning for partial torsion. Patient seen by urology who believed that patient's testicular pain due to ischemia from thrombocytosis. Antibiotics discontinued. Also concern for acute blood loss anemia, surgery was consulted. Outpatient EGD and colonoscopy. Patient was also seen by oncology for thrombocytosis, started on aspirin hydroxyurea, outpatient follow-up. He is now going home with home care. Pain has resolved, but he will follow-up with urology. Patient seen and examined at bedside. Vital signs reviewed and stable. General examination - Alert and Oriented 3 in NAD, appears chronically debilitated Heart - + S1S2 no murmurs Lungs - Clear to auscultation Abdomen soft NT ND +ve BS Extremities - No edema : Tenderness to palpate of the testicle RESIDENTIAL CONCIERGE - Moving all 4 extremities spontaneously Psych - Calm and cooperative A total of 33 minutes of time were spent preparing this complex discharge summary. Patient was discharged on 08/07/22 [id number]. Plan - Discharge Summary Discharge Rx Participant: Yes New Discharge Prescriptions: New Metoprolol Tartrate [Lopressor] 25 mg PO BID #60 tab Hydroxyurea [Hydrea] 500 mg PO DAILY #60 cap Continue allopurinoL [Zyloprim] 100 mg PO DAILY Pravastatin Sodium [Pravachol] 40 mg PO HS Aspirin 81 mg PO DAILY #30 tab Famotidine [Pepcid] 20 mg PO HS #30 tab Discontinued diazePAM [Valium] 5 mg PO BID PRN PRN Reason: Anxiety Metoprolol Tartrate [Lopressor] 50 mg PO BID hydroCHLOROthiazide [Hydrodiuril] 25 mg PO DAILY Discharge Medication List allopurinoL [Zyloprim] 100 mg PO DAILY 10/02/19 [History] Pravastatin Sodium [Pravachol] 40 mg PO HS 07/18/22 [History] Aspirin 81 mg PO DAILY #30 tab 07/22/22 [Rx] Famotidine [Pepcid] 20 mg PO HS #30 tab 07/22/22 [Rx] Hydroxyurea [Hydrea] 500 mg PO DAILY #60 cap 08/07/22 [Rx] Metoprolol Tartrate [Lopressor] 25 mg PO BID #60 tab 08/07/22 [Rx] Follow up Appointment(s)/Referral(s): Gildardo Gould MD [STAFF PHYSICIAN] - 1 Week (office closed at time of discharge Please call to schedule appointment ) [facility] [NON-STAFF] - As Needed Jeremi Melendez MD [STAFF PHYSICIAN] - 2 Weeks (office will call with appointment time) [facility] [Primary Care Provider] - 08/10/22 8:00 am Gaurang Watson MD [STAFF PHYSICIAN] - 08/18/22 2:45 pm Patient Instructions/Handouts: Testicular Torsion (DC), Scrotal Pain (GEN) Activity/Diet/Wound Care/Special Instructions: Please follow up with Urology, Hematology, and surgery. Please also see your PCP as soon as possible. [facility] is arranging home care through [facility]. Discharge Disposition: HOME WITH HOME HEALTH SERVICES
--- NOTE | 2022-08-07 16:01 | P.PN ---
Subjective Progress Note Date: 08/07/22 Principal diagnosis: thrombocytosis At today's visit patient is resting comfortably in bed. He reports continued improvement in left testicular pain. Urology following, plan to manage conservatively with possible orchiectomy. Platelets improved, 911, WBC 20. Afebrile Objective - Vital Signs Vital signs: Vital Signs Temp 98.1 F 08/07/22 06:52 Pulse 91 08/07/22 06:52 Resp 16 08/07/22 06:52 BP 122/67 08/07/22 06:52 Pulse Ox 93 L 08/07/22 06:52 FiO2 Intake & Output 08/06/22 08/07/22 08/07/22 18:59 06:59 18:59 Output Total 50 Balance -50 Weight 70.76 kg Output: Urine 50 Other: Voiding Method Urinal Diaper Incontinent # Voids 5 2 # Bowel Movements 3 1 - Constitutional General appearance: Present: average body habitus, no acute distress - EENT Eyes: Present: anicteric sclerae, EOMI ENT: Present: hearing grossly normal - Respiratory Details: breathing is even and unlabored - Cardiovascular Details: skin warm and dry - Integumentary Integumentary: Present: pale - Neurologic Neurologic Comment(s): grossly intact - Musculoskeletal Musculoskeletal: Present: strength equal bilaterally - Psychiatric Psychiatric: Present: A&O x's 3, appropriate affect, intact judgment & insight - Labs CBC & Chem 7: 08/07/22 08:02 08/05/22 04:35 Labs: Abnormal Lab Results - Last 24 Hours (Table) 08/07/22 Range/Units 08:02 WBC 20.05 H (4.50-10.00) X 10*3/uL RBC 2.60 L (4.40-5.60) X 10*6/uL Hgb 7.7 L (13.0-17.0) g/dL Hct 25.6 L (39.6-50.0) % MCV 98.5 H (80.0-97.0) fL MCHC 30.1 L (32.0-37.0) g/dL RDW 15.7 H (11.5-14.5) % Plt Count 911 H (140-440) X 10*3/uL MPV 9.1 L (9.5-12.2) fL Immature Gran # 0.13 H (0.00-0.04) X 10*3/uL Neutrophils # 15.07 H (1.80-7.70) X 10*3/uL Monocytes # 1.99 H (0.20-1.00) X 10*3/uL Eosinophils # 1.57 H (0.04-0.35) X 10*3/uL Assessment and Plan (1) Leukocytosis Status: Acute Priority: Medium Code(s): D72.829 - ELEVATED WHITE BLOOD CELL COUNT, UNSPECIFIED SNOMED Code(s): 031589715 (2) Thrombocytosis Status: Acute Priority: Medium Code(s): D75.839 - THROMBOCYTOSIS, UNSPECIFIED SNOMED Code(s): 3444167 (3) Anemia Status: Acute Priority: Medium Code(s): D64.9 - ANEMIA, UNSPECIFIED SNOMED Code(s): 580892468 (4) Testicular pain Status: Acute Code(s): N50.819 - TESTICULAR PAIN, UNSPECIFIED SNOMED Code(s): 00166717 Plan: Thrombocytosis/Leukocytosis: -Thrombocytosis/Leukocytosis present on previous admission on 07/23/22. Platelets and leukocytes have shown improvement, but increased today, 1092 and 17.1 respectively. -Thrombocytosis and leukocytosis could be reactive due to acute condition with underling age related bone marrow suppression vs MPN -Anemia workup from admission on 07/23 revealed iron 13, iron sat 8%, and ferritin 1224. Repeat ferritin 1421. Vitamin B12 and folate normal. -MPN workup negative. BCR-ABL inconclusive. Will repeat test in outpatient setting -81 mg aspirin daily. Will monitor CBC weekly in outpatient setting as there are concerns for GI bleed -Follow up in clinic with Dr. Karen Peralta was scheduled for 08/06 for further evaluation/workup, however apt will be rescheduled upon discharge Anemia: -Recent anemia workup negative -Reported dark colored stools, now resolved. Last colonoscopy 2-[address] Nair, normal per pt -CBC consistent with normocytic normochromic anemia -Surgery consulted for evaluation for colonoscopy/EGD. Plan for colonoscopy/EGD outpatient once pt recovers -Hemoglobin 7.7 today, please transfuse for hemoglobin less than 7 Testicular pain: -Urology consulted -Repeat scrotal ultrasound revealed poor vascular flow within the left testicle. Venous flow is identified. No definite arterial flow. Vascular flow is diminished compared to the right, consider partial torsion -He is reporting continued improvement in left testicular pain. Urology plans for conservative management at this time, with possible orchiectomy
--- NOTE | 2022-08-07 17:36 | P.PN ---
Subjective Progress Note Date: 08/07/22 Principal diagnosis: Left orchialgia The patient is an 87-year-old white male with thrombocytosis. He has experienced intermittent left orchialgia, presumed to be due to testicular ischemia. Scrotal ultrasound with Doppler showed diminished arterial inflow to the left testicle. The patient states that his pain has diminished by at least 75%. Objective - Vital Signs Vital signs: Vital Signs Temp 98.1 F 08/07/22 02:00 Pulse 91 08/07/22 02:00 Resp 18 08/07/22 02:00 BP 111/61 08/07/22 02:00 Pulse Ox 97 08/07/22 02:00 FiO2 Intake & Output 08/06/22 08/06/22 08/07/22 06:59 18:59 06:59 Output Total 50 Balance -50 Weight 70.76 kg Output: Urine 50 Other: Voiding Method Urinal Diaper Incontinent # Voids 3 5 1 # Bowel Movements 1 3 - Constitutional General appearance: Present: average body habitus, no acute distress - Genitourinary Genitourinary Comment(s): Normal phallus, normal urethral meatus. The scrotum is normal. The testes are symmetrical in size. The left testicle is slightly firm and tender. - Labs CBC & Chem 7: 08/07/22 08:02 08/05/22 04:35 Labs: Abnormal Lab Results - Last 24 Hours (Table) 08/06/22 Range/Units 08:16 WBC 17.1 H (3.8-10.6) k/uL RBC 2.87 L (4.30-5.90) m/uL Hgb 8.6 L (13.0-17.5) gm/dL Hct 28.0 L (39.0-53.0) % MCHC 30.8 L (31.0-37.0) g/dL Plt Count 1092 H* (150-450) k/uL Neutrophils # 13.3 H (1.3-7.7) k/uL Eosinophils # 1.1 H (0-0.7) k/uL Assessment and Plan Assessment: It is felt that the patient's orchalgia is ischemic in nature, secondary to thrombocytosis. He continues to improve symptomatically. (1) Testicular pain Status: Acute Code(s): N50.819 - TESTICULAR PAIN, UNSPECIFIED SNOMED Code(s): 43145364 Plan: Given the patient's improvement, surgical intervention is felt not to be warranted. He is urologically stable and may follow-up with us as an outpatient. Time with Patient: Less than 30
== END 2022-08-07 14:54 | disposition home health service (06) | DRG 815 ==
LOC: EC 12:45 → 4SSUR 20:21
PROVIDERS: ADMIT Family Medicine; ATTEND Family Medicine
DX: D75.839 Thrombocytosis, unspecified (principal); D62 Acute posthemorrhagic anemia; N17.9 Acute kidney failure, unspecified; E78.5 Hyperlipidemia, unspecified; E83.42 Hypomagnesemia; I49.1 Atrial premature depolarization; D72.829 Elevated white blood cell count, unspecified; E87.6 Hypokalemia; E87.8 Other disorders of electrolyte and fluid balance, not elsewhere classified; K21.9 Gastro-esophageal reflux disease without esophagitis; Z20.822 Contact with and (suspected) exposure to COVID-19; Z87.891 Personal history of nicotine dependence; F41.9 Anxiety disorder, unspecified; I10 Essential (primary) hypertension; I25.10 Atherosclerotic heart disease of native coronary artery without angina pectoris; I45.4 Nonspecific intraventricular block; M10.9 Gout, unspecified; N49.2 Inflammatory disorders of scrotum; Z79.82 Long term (current) use of aspirin; Z79.899 Other long term (current) drug therapy; Z95.1 Presence of aortocoronary bypass graft; Z91.041 Radiographic dye allergy status
CPT/HCPCS: 36415; 74176; 76870; 80053; 81003; 82150; 82728; 83605; 83690; 83735; 84145; 85025; 85027; 85245; 85652; 86140; 87491; 87591; 87635; 93005; 93975; 96361; 96374; 99285